=== PATIENT | male | born 1975 | race Hispanic/Latino ===

== ENCOUNTER 2016-11-11 17:52 | Emergency (ER) | payer SELFPAY ==
[2016-11-11 17:59] VITALS: BP 130/86; PULSE 103; RESP 16; O2SAT 98
[2016-11-11 18:36] LABS: BASOPHILS % (AUTO) 0.3 % (0-3); EOSINOPHILS % (AUTO) 1.1 % (0-5); MONOCYTES % (AUTO) 11.1 % (4-12); Mean Corpuscular Hemoglobin 29.7 pg (27.0-35.0); Mean Corpuscular Volume 82.7 fL (81-100); NEUTROPHILS % (AUTO) 55.5 % (40-74); Platelet Count 180 bil/L (150-400)
[2016-11-11 19:17] LABS: TROPONIN T < 0.010 ug/L (0.0-0.011)
--- NOTE | 2016-11-11 19:25 | ED.REPORT ---
HPI-General Illness Date of Service Nov 11, 2016 ED Provider: Frederick Reyes MD Pt is a healthy 41 year old male who presents to the ED with concerns for sudden dizziness that started yesterday. He reports that this started abruptly while he was at work yesterday, and this has continued since then. Pt states that he additionally reports that he has been experiencing fevers and chills. He denies any diarrhea, abdominal pain, dysuria or any sick contacts. He reports increased urinary frequency, but has no other complaints. Nursing Notes Stated Complaint: DIZZY AND BODY PAIN Chief Complaint: General Complaint Nursing Notes Reviewed: Yes ([employer], [employer] not reconciled) Allergies: Coded Allergies: No Known Allergies (Unverified , 11/11/16) Scheduled Azithromycin (Zithromax (Z-Sherwin)) 250 Mg Tablet 250 MG PO DIRECTED Take two tablets by mouth on day 1, then take one tablet daily on days 2 through 5. Metformin ER (Metformin ER) 1,000 Mg Tablet 1,000 MG PO DAILY General Time Seen by MD: 19:23 Chief Complaint Dizziness Hx Obtained From: Patient Arrived By: Walk-in Sudden in Onset?: Yes Onset Occurred: Yesterday Symptom Duration: Since onset Location: : Head Quality: Painful Severity: Current: Mild Severity: Maximum: Mild Similar Sx Previous: Yes Past Medical History Past Medical History Healthy Family History Mother is diabetic Ambulatory Status Independent Review of Systems Full Review of Systems Constitutional: Reports: Chills, Fever, Weakness - generalized, Denies: Malaise Respiratory: Reports: Non-productive cough (mild), Denies: Shortness of breath, Wheezing Cardiovascular: Denies: Chest pain, Syncope GI: Denies: Abdominal pain, Constipation, Diarrhea, Nausea, Vomiting Male: Reports Urinary frequency, Denies Dysuria, Denies Flank pain, Denies Urinary urgency Musculoskeletal: Denies: Back pain, Extremity pain, Neck pain Skin: Denies Diaphoresis Neurologic: Reports: Dizziness, Headache, Denies: Syncope, Weakness Complete sys rev & neg: except as marked. Physical Exam Vital Signs Vital Signs Date Time Temp Pulse Resp B/P Pulse Ox O2 Delivery O2 Flow Rate FiO2 11/11/16 17:59 37.8 103 16 130/86 98 Room Air Initial VS: Reviewed, Vital signs abnormal Head / Eyes: Atraumatic, Normocephalic, PERRL ENT: Mucous membranes moist, Conjunctiva normal, No scleral icterus Neck: Supple, Non-tender, Full range of motion Respiratory: Breath sounds normal, Clear to auscultation, No respiratory distress Cardiovascular: Regular rate & rhythm, Heart sounds normal, Intact distal pulses Abdomen / GI: Soft, Non-tender, No guarding, No rebound, No distention Skin: Warm, Dry, No cyanosis Neurologic: Alert, Oriented, Nonfocal General/Constitutional: Awake, Alert Fatigued Non-toxic Interpretation & Diagnostics Lab Results Interpretation Result Diagram: 11/11/160 11/11/16 1820 Test 11/11/16 18:20 11/11/16 20:03 White Blood Count 6.3th/mm3 (3.8-10.1) Red Blood Count 5.32mil/mm3 (4.40-5.80) Hemoglobin 15.8g/dL (13.8-17.2) Hematocrit 44.0% (41.0-50.0) Mean Corpuscular Volume 82.7fL (81-100) Mean Corpuscular Hemoglobin 29.7pg (27.0-35.0) Mean Corpuscular Hemoglobin Concent 35.9% (32.0-37.0) Red Cell Distribution Width 12.0% (12.3-15.4) Platelet Count 180bil/L (150-400) Neutrophils (%) (Auto) 55.5% (40-74) Lymphocytes (%) (Auto) 31.8% (14-46) Monocytes (%) (Auto) 11.1% (4-12) Eosinophils (%) (Auto) 1.1% (0-5) Basophils (%) (Auto) 0.3% (0-3) Sodium Level 135mEq/L (134-144) Potassium Level 3.8mEq/L (3.5-5.2) Chloride Level 95mEq/L (97-108) Carbon Dioxide Level 23mmol/L (18-29) Blood Urea Nitrogen 11mg/dL (6-20) Creatinine 0.64mg/dL (0.76-1.27) Estimat Glomerular Filtration Rate 148mL/min (>59) Glucose Level 318mg/dL (60-99) Lactic Acid Level 1.3mmol/L (0.4-2.0) Calcium Level 9.6mg/dL (8.5-10.1) Total Bilirubin 0.6mg/dL (0.0-1.2) Aspartate Amino Transf (AST/SGOT) 21U/L (0-50) Alanine Aminotransferase (ALT/SGPT) 23U/L (0-44) Alkaline Phosphatase 105U/L (25-150) Troponin T < 0.010ug/L (0.0-0.011) Pro-B-Type Natriuretic Peptide 8.38pg/mL (0-86) Total Protein 7.7g/dL (6.4-8.4) Albumin 4.3g/dL (3.4-5.0) Hold Sierra Top Tube Received (Received) Hold Blue Top Tube Received (Received) Urine Color Yellow (YELLOW) Urine Appearance Hazy (CLEAR,HAZY) Urine pH 6.0 (5.0-8.0) Urine Specific Greene 1.060 (1.003-1.035) Urine Protein 30mg/dL (NEG,TRACE) Urine Glucose (UA) >2000mg/dL (NEGATIVE) Urine Ketones Tracemg/dL (NEGATIVE) Urine Occult Blood Negative (NEGATIVE) Urine Nitrite Negative (NEGATIVE) Urine Bilirubin Negative (NEGATIVE) Urine Urobilinogen Normalmg/dL (NORMAL) Urine Leukocyte Esterase Negative (NEGATIVE) Urine RBC 0-2/hpf (0-2) Urine WBC 0-5/hpf (0-5) Urine Epithelial Cells Occasional/hpf (NONE-MOD) Urine Crystals None seen (NONE SEEN) Urine Bacteria Few/hpf (NONE-FEW) Urine Hyaline Casts None/lpf (NONE) Urine Granular Casts None seen (NONE SEEN) Urine Waxy Casts None seen (NONE SEEN) Urine Red Blood Cell Casts None seen (NONE SEEN) Urine White Blood Cell Casts None seen (NONE SEEN) Urine Mucus Present (None Seen) Urine Trichomonas None seen (NONE SEEN) Urine Yeast None (NONE SEEN) Urinalysis Comment None Urine Culture Reflexed Not indicated Hold [place] Top Tube Received (Received) Lab Results Interpretation: CBC normal CMP new hyperglycemia Blood cultures pending X-Ray Chest Interpretation Chest Xray Interpretation: IMPRESSION: Focal left midlung opacity suspicious for pneumonia. Dictated by: Brie Lockwood MD, PhD on 11/11/2016 at 19:56 Interpretation / Wet Read by: Interpret - Radiologist Re-Eval/Medical Decision Med Decision/Clinical Course This is a 41-year-old male known known past mental history presents with fever, chills, generalized weakness and mild cough. Worse today, so he came in. He is febrile, is not toxic, his lungs are clear, is not tachypneic or dyspneic or hypoxic. He is not hypertensive. His blood was notable for new onset diabetes with significant hyperglycemia-he has extensive family history. A chest x-ray is positive for pneumonia. He started on ceftriaxone, being discharged on azithromycin. However he is not toxic, he is reasonable For outpatient management. He does not have a PCP, not contacted the on-call provider for next unassigned to facilitate follow-up and establish care given his diabetes. In the interim I written a prescription for metformin to initiate. Routine precautions reviewed. Patient's discharged in stable condition Source of Hx: Old records Time of Eval: 21:29 Re-Evaluation/Progress Note: Pt is rechecked and informed of his diagnosis and the plan to discharge him at this time. He understands and agrees, all questions are addressed. Consultation : Referral / Consult Name: Bhavesh Sullivan DO Call Returned at: 22:01 [employer] Hand: Will see in office Note: Discussed with patient physical outpatient office follow-up. (referred to Dr. Berry) Differential Diagnosis: Positive: Diabetes mellitus, Pneumonia, Negative: Acute coronary syndrome, Drug dependence, Fracture, Neutropenia Counseled Regarding: Diagnosis, Lab results, Need for follow-up, When/why to return to ED Discharge & Departure Primary Impression: Pneumonia Pneumonia type: due to unspecified organism Laterality: left Lung location : lower lobe of lung Qualified Code: J18.1 - Lobar pneumonia, unspecified organism Additional Impression: New onset type 2 diabetes mellitus Disposition: Home Discharge Condition All VS Reviewed: Yes Condition: Stable Additional Instructions: 1. Your x-ray demonstrates that her fever, cough, and weakness are from a pneumonia. He received a dose of IV antibiotics in the department tonight. 2. Starting tomorrow taking anabolic azithromycin as directed. 3. Rest, usually takes several days after starting amoxicillin started feel better. Drink plenty of fluids. Take Tylenol 1 g up to every 6 hours as needed for fever. 4. Additionally her blood work demonstrates that U have mild diabetes. Metformin 1000 mg (extended release) once a day (there is no risk of this medicine causing her blood sugar to be low. You do need to establish with a local doctor-call Dr. Berry's office for an appointment. I have called them to facilitate the follow-up. 5. Return if new or worsening symptoms. Referrals: NOPCP (PCP) Jak Attestation Portions of this note were transcribed by Alesha Gonzalez.. I, Dr. Reyes personally performed the history, physical exam and medical decision-making; I reviewed and confirmed the accuracy of the information in the transcribed note. Signed by:Jak Banks, 11/11/2016 21:33 Frederick Reyes MD Nov 11, 2016 19:25 MAIKEL GONZALEZ Nov 11, 2016 19:42
--- NOTE | 2016-11-11 19:59 | DRSVH ---
PROCEDURE: X-RAY CHEST, TWO VIEWS ([id number]) INDICATIONS: fever TECHNIQUE: 2 views of the chest were acquired. COMPARISON: None. FINDINGS: Surgical changes and devices: None. Lungs and pleura: No pleural effusions or pneumothorax. Focal left suprahilar lung opacity noted adeel picious for pneumonia. Mediastinum: Mediastinal contours are normal. Heart size is normal. Bones and chest wall: No suspicious bony abnormalities. Soft tissues appear unremarkable. IMPRESSION: Focal left midlung opacity suspicious for pneumonia. Dictated by: Brie Lockwood MD, PhD on 11/11/2016 at 19:56 Approved by: Brie Lockwood MD, PhD on 11/11/2016 at 19:57
[2016-11-11] MEDS ORDERED: cefTRIAXone Inj 2,000 MG in Dextrose 5% Minibag Plus 50 ML IV ONE (21:05)
[2016-11-11] MEDS ORDERED: AZIT250T4 PO (21:30)
[2016-11-11] MEDS ORDERED: METF-496 PO (21:30)
[2016-11-11 21:48] LABS: APPEARANCE,URINE HAZY (CLEAR,HAZY); COLOR,URINE YELLOW (YELLOW)
[2016-11-11 21:49] LABS: OCCULT BLOOD,URINE NEGATIVE (NEGATIVE); UROBILINOGEN,URINE NORMAL (NORMAL)
[2016-11-11 22:14] VITALS: BP 136/83; PULSE 92; RESP 18; O2SAT 99
== END 2016-11-11 22:15 | disposition home or self-care (01) ==
LOC: SED 17:52
DX: J18.1 Lobar pneumonia, unspecified organism (principal); E11.9 Type 2 diabetes mellitus without complications; Z79.84 Long term (current) use of oral hypoglycemic drugs
CPT/HCPCS: 36415; 71020; 80053; 81000; 83036; 83605; 83880; 84484; 85025; 87040; 96365; 99285; J0696

== ENCOUNTER 2016-12-07 13:26 | Inpatient (IN) | payer SELFPAY ==
[~2016-12-07] VITALS: Ht 180.3 cm; Wt 82.4 kg
[~2016-12-07 13:26] MED LIST: AZIT250T4 PO; METF-496 PO
[2016-12-07 13:48] VITALS: BP 102/67; PULSE 123; RESP 10; O2SAT 92
[2016-12-07] MEDS ORDERED: Ibuprofen Suspension 20 mg/mL 5 mL Suspension ONE (14:42)
[2016-12-07 15:00] LABS: BASOPHILS % (AUTO) 0.3 % (0-3); EOSINOPHILS % (AUTO) 0.9 % (0-5); MONOCYTES % (AUTO) 9.1 % (4-12); Mean Corpuscular Volume 80.6 fL (81-100); NEUTROPHILS % (AUTO) 69.4 % (40-74); Platelet Count 238 bil/L (150-400)
--- NOTE | 2016-12-07 15:02 | DRSVH ---
PROCEDURE: X-RAY CHEST, TWO VIEWS ([id number]) INDICATIONS: cough, chest pain TECHNIQUE: 2 views of the chest were acquired. COMPARISON: [facility], CR, XR CHEST 2VW, 11/11/2016, 19:46. FINDINGS: Surgical changes and devices: None. Lungs and pleura: Extensive airspace disease throughout the left lung is identified. There is mild a irspace disease along the peripheral aspect of the right lower lobe. Mediastinum: Mediastinal contours are normal. Heart size is normal. Bones and chest wall: No suspicious bony abnormalities. Soft tissues appear unremarkable. IMPRESSION: Bilateral pneumonia (left significantly greater than right). Dictated by: Werner Maxwell M.D. on 12/07/2016 at 13:59 Approved by: Werner Maxwell M.D. on 12/07/2016 at 14:00
--- NOTE | 2016-12-07 15:11 | ED.REPORT ---
HPI-URI / Cough / Cold Date of Service Dec 07, 2016 ED Provider: Doc,Ed MD History of Present Illness: 41yo male with 1 month of persistent cough, intermittantly productive. Seen at [facility], being treated for pneumonia, currently on Doxycycline after no improvement on Z-pack and Augmentin. He had a TB quantferon Gold test yesterday at [facility] which came back today as positive. Additionally, he was diagnosed with DM 1 month ago, currently on Metformin and Insulin. Nursing Notes Stated Complaint: HIGH SUGARS Chief Complaint: General Complaint Nursing Notes Reviewed: Yes Allergies: Coded Allergies: No Known Allergies (Unverified , 12/07/16) Scheduled Azithromycin (Zithromax (Z-Sherwin)) 250 Mg Tablet 250 MG PO DIRECTED Take two tablets by mouth on day 1, then take one tablet daily on days 2 through 5. Metformin ER (Metformin ER) 1,000 Mg Tablet 1,000 MG PO DAILY General Time Seen by MD: 15:10 Chief Complaint Cough, non-productive Hx Obtained From: Patient Arrived By: Walk-in Onset Occurred: More than a week ago... (1 month) Symptom Duration: Since onset Location: : Chest Radiation: Does not radiate Severity: Current: Mild Severity: Maximum: Mild Associated with: Reports: Cough, Fever, Denies: Chills Pertinent Negative: Pt denies other symptoms Context: Immunization Status General: Unknown Recent Healthcare: Recent doctor visit Similar Sx Previous: Yes Past Medical History Past Medical History DM2 Family History Mother is diabetic Smoking History Unknown if Ever Smoker Social History Alcohol Use: Denies alcohol use Ambulatory Status Independent Review of Systems Review of Systems Note: Reports 80 pound weight loss in 2 years prior to DM diagnosis Constitutional: Reports: Fever, Recent wt loss Respiratory: Reports: Non-productive cough, Denies: Hemoptysis, Shortness of breath, Wheezing GI: Denies: Abdominal pain Complete sys rev & neg: except as marked. Physical Exam Physical Exam Notes: Pulse 108 on recheck Initial Vital Signs Vital Signs (First) Date Time Temp Pulse Resp B/P Pulse Ox O2 Delivery O2 Flow Rate FiO2 12/07/16 13:48 36.4 123 10 102/67 92 Room Air Initial VS: Reviewed General/Constitutional: Awake, Alert, Well hydrated, Not toxic appearing ENT: Airway patent, Mucous membranes moist, Pharynx NL Respiratory / Chest: Atraumatic, Breath sounds NL, Breath sounds = bilat, No respiratory distress Neck: Supple, No meningismus, Full range of motion, No adenopathy Cardiovascular: Regular rhythm, Heart sounds NL, No gallop Heart Rate / Rhythm: Positive: Tachycardia Abdomen: Soft, Non-tender Interpretation & Diagnostics Lab Results Interpretation Result Diagram: 12/08/16 0555 12/08/16 0555 Test 12/07/16 14:50 12/07/16 16:45 Hemoglobin A1c 11.1% (4.8-5.6) Troponin T < 0.010ug/L (0.0-0.011) Hold [place] Top Tube Received (Received) X-Ray Chest Interpretation Chest Xray Interpretation: PROCEDURE: X-RAY CHEST, TWO VIEWS ([id number]) INDICATIONS: cough, chest pain TECHNIQUE: 2 views of the chest were acquired. COMPARISON: [facility], , XR CHEST 2VW, 11/11/2016, 19:46. FINDINGS: Surgical changes and devices: None. Lungs and pleura: Extensive airspace disease throughout the left lung is identified. There is mild airspace disease along the peripheral aspect of the right lower lobe. Mediastinum: Mediastinal contours are normal. Heart size is normal. Bones and chest wall: No suspicious bony abnormalities. Soft tissues appear unremarkable. IMPRESSION: Bilateral pneumonia (left significantly greater than right). Dictated by: Werner Maxwell M.D. on 12/07/2016 at 13:59 Approved by: Werner Maxwell M.D. on 12/07/2016 at 14:00 Re-Eval/Medical Decision Med Decision/Clinical Course Med Decision/Clinical Course: Pt. discussed and labs reviewed with Dr. Preston who will assume care and have Pt. admitted for possibleTB and bilateral pneumonia, failing outpatient therapy. Pt. placed in negative pressure room. Broadspectrum IV abx for CAP started after consultation with Madi Mclaughlin Ph. I saw the patient with the PA and agree with the findings and plan as documented above. In brief, 41M originally from [place] w/ recurrent PNA despite multiple regimens of outpatient antibiotics, now w/ a positive Quantiferon gold. Obvious concern for TB vs aspiration PNA or other atypical offending agent. Hemodynamically stable here. Plan initiation of broad spectrum antibiotics, placement in a negative pressure room (initiated immediately upon learning of positive Q gold w/ cough) and admission for further evaluation and management. Counseled Regarding: Diagnosis, Lab results, Need for admission Discharge & Departure Impression: Primary Impression: Pneumonia Pneumonia type: due to unspecified organism Laterality: bilateral Lung location: unspecified part of lung Qualified Code: J18.9 - Pneumonia, unspecified organism Additional Impressions: Positive QuantiFERON-TB Gold test New onset type 2 diabetes mellitus Disposition: ADMITTED TO HOSPITAL Referrals: NOPCP (PCP) EDSupervising Provider for APC: Ernie Preston MD Attending Statement I saw the patient with the PA and agree with the findings and documentation as noted above. Pankaj Dwyer Dec 07, 2016 15:11 Ernie Preston MD Dec 08, 2016 13:26 (AST/SGOT) 30U/L (0-50) Alanine Aminotransferase (ALT/SGPT) 21U/L (0-44) Alkaline Phosphatase 105U/L (25-150) Troponin T < 0.010ug/L (0.0-0.011) Total Protein 7.6g/dL (6.4-8.4) Albumin 3.6g/dL (3.4-5.0) Hold [place] Top Tube Received (Received) X-Ray Chest Interpretation Chest Xray Interpretation: PROCEDURE: X-RAY CHEST, TWO VIEWS ([id number]) INDICATIONS: cough, chest pain TECHNIQUE: 2 views of the chest were acquired. COMPARISON: [facility], , XR CHEST 2VW, 11/11/2016, 19:46. FINDINGS: Surgical changes and devices: None. Lungs and pleura: Extensive airspace disease throughout the left lung is identified. There is mild airspace disease along the peripheral aspect of the right lower lobe. Mediastinum: Mediastinal contours are normal. Heart size is normal. Bones and chest wall: No suspicious bony abnormalities. Soft tissues appear unremarkable. IMPRESSION: Bilateral pneumonia (left significantly greater than right). Dictated by: Werner Maxwell M.D. on 12/07/2016 at 13:59 Approved by: Werner Maxwell M.D. on 12/07/2016 at 14:00 Re-Eval/Medical Decision Med Decision/Clinical Course Med Decision/Clinical Course: Pt. discussed and labs reviewed with Dr. Preston who will assume care and have Pt. admitted for possibleTB and bilateral pneumonia, failing outpatient therapy. Pt. placed in negative pressure room. Broadspectrum IV abx for CAP started after consultation with Madi Mclaughlin Ph. 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
[2016-12-07 15:25] LABS: TROPONIN T < 0.010 ug/L (0.0-0.011)
[2016-12-07 15:32] LABS: Magnesium 1.6 mg/dL (1.6-2.6)
[2016-12-07 15:38] VITALS: BP 108/56; PULSE 105; RESP 20; O2SAT 98
[2016-12-07 16:27] VITALS: BP 115/59; PULSE 102; RESP 28; O2SAT 94
[2016-12-07] MEDS ORDERED: Azithromycin Inj 500 MG in Dextrose 5% w/Vial Mate 250 ML IV ONE ×2 (16:33→19:50)
[2016-12-07] MEDS ORDERED: cefTRIAXone Inj 2,000 MG in Dextrose 5% Minibag Plus 50 ML IV ONE ×2 (16:33→19:50)
[2016-12-07] MEDS ORDERED: Polyethylene Glycol (PEG) 17 Gm Powder PO PRN (17:20)
[2016-12-07] MEDS ORDERED: Alum-Mag Hydrox-Simeth 30 mL Suspension PO PRN (17:20)
[2016-12-07] MEDS ORDERED: Ondansetron 2 mg/mL 2 mL Inj IVPUSH PRN (17:20)
[2016-12-07 17:49] VITALS: BP 100/66; PULSE 102; RESP 18; O2SAT 95
--- NOTE | 2016-12-07 19:26 | PCM.HPMED ---
Subjective Date of Service Dec 07, 2016 Primary Provider: Admitting Physician: Pankaj Erwin MD Primary Care Physician: Alissa Attending Physician: Pankaj Erwin MD Admit Status: From the Emergency Department, Admit to [place] Team Chief Complaint: Nonproductive cough. History of Present Illness: The patient is a 41-year-old male who has been in [facility] for 20 years. 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 Approximately 1 month ago patient became ill and was diagnosed with diabetes and placed on metformin and insulin. He states he used to weigh over 300 pounds and has lost over 100 pounds and is down 195 pounds. In addition to weight loss she has had drenching night sweats where he has to sleep with towels on his back behind his head and on his front. He also has had a cough which is nonproductive. Patient is seen his primary care provider at the [facility] and has been given azithromycin by mouth, Augmentin by mouth and now is on doxycycline by mouth. A QuantiFERON gold blood test was performed on the patient and I came back positive. The patient continues to have a pulmonary infiltrate in the left lung. Patient was sent to [facility] emergency room where he was found to have a chest x-ray consistent with bilateral pneumonia, left greater than right. Laboratory test revealed hyponatremia and hyperglycemia. Therefore given the above subjective and objective findings the patient is being admitted to the hospitalisat service for further evaluation and treatment. Review of Systems: General: Patient has had weight loss of over 100 pounds, fever, drenching night sweats, and cough which is nonproductive. HEENT: Patient has no headache, patient has no diplopia, patient has no changes in vision. Patient has no problems with their ears, nose or throat. Patient has no known dental problems. Patient has no pharyngitis or history of thrush. Neck: Patient has no stiffness in the neck. Patient has no lymphadenopathy. Patient has no other problems with their neck. Pulmonary: Patient has no shortness of breath, however he does have a cough, with no expectoration of sputum. Patient has no pleurisy. Patient has no chest pain. Patient has no history of asthma or COPD. Cardiovascular: Patient has no chest pain. Patient has no history of heart murmur. Patient has no palpitations. Patient has no history of myocardial infarction. Patient has no history of coronary artery disease. Gastrointestinal: Patient has no history of hepatitis A, B or C. Patient has no history of peptic ulcer disease. Patient has no history of gastroesophageal reflux disease. Patient has no history of nausea, vomiting, or diarrhea. Patient has no history of hematemesis, hematochezia, or melena. Patient has no history of colitis. Renal: Patient has no history of kidney disease. No history of kidney stones. Genitourinary: Patient has no history of dysuria, frequency, or incontinence. Patient has no previous history of genitourinary problems. Musculoskeletal: Patient has no history of muscular skeletal problems. Neurologic: Patient has no history of stroke, no history of seizure, no history of TIA. Psychiatric: Patient has no history of psychiatric problems. However, he is admitted abuse of alcohol. He states he drinks approximately a liter and a half of tequila a day and did this up until "he got sick". The remainder of the entire review of systems was reviewed with patient and is as mentioned above otherwise negative. Allergies Coded Allergies: No Known Allergies (Unverified , 11/11/16) Home Medications Metformin 1000 mg by mouth daily Patient has recently had azithromycin and Augmentin. Patient is currently taking doxycycline. PMH Type II diabetes mellitus diagnosed 1 month ago. Unknown respiratory infection Surgical History Denied Family History His father is in his 60s and healthy His mother is in her early 60s and has diabetes mellitus He has one brother who is healthy He has 3 sisters who are healthy Social History Hx Alcohol Use: Yes (The patient admits to drinking 1 and 1/2 L of tequila a day. He states that he works and drives while drinking this much tequila per day. If he drinks up to 2 L of tequila a day he has someone else drive.) Hx Substance Use: No Smoking Status: Unknown if Ever Smoker Living Arrangement: with Family Additional Information The patient is from [place] and immigrated to the [place] approximately 20 years ago. He has spent his time between [place] and [place]. He is settled in [place], for some time the [facility], running a [employer] service. He states that he drinks approximately a liter and a half of tequila a day and drives that much alcohol in his system. He states that if he drinks 2 L a day, he will have someone else drive for him. The patient has a 19-year-old child with a previous relationship and currently lives with his spouse and 10-year-old child. He denies tobacco use for illicit drug use. 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 Patient denies having any contacts with ill or sick people recently, or anyone with tuberculosis in his lifetime. Exam Vital Signs Vital Sign - Last Date Time Temp Pulse Resp B/P Pulse Ox O2 Delivery O2 Flow Rate FiO2 12/07/16 17:49 36.9 102 18 100/66 95 Room Air Exam General: The patient is a pleasant male in no apparent distress lying supine in bed. HEENT: Head is atraumatic and normocephalic. Eyes: Pupils are equally round and reactive to light and accommodation. Extraocular muscles are intact. Sclera are white, anicteric. Subconjunctival mucosa is pink. Ears and nose are unremarkable. Oropharynx: There is no mucosal lesions, there is no thrush, there is no pharyngitis. Neck: Is supple, there are no nodes, or masses or tenderness. Chest: Is significant for rales bibasilar left greater than right rales throughout the left lung field. There are no rhonchi, wheezes or rubs appreciated. Heart: Rate, rhythm is regular. There is no murmur, rub or gallop. Abdomen: Good bowel sounds are present. Abdomen is soft, nontender, no organomegaly or masses were appreciated. Extremities: Are symmetrical and well perfused. There is no edema, there is no cellulitis, no rash. Neurologic: There are no focal neurological deficits. Cranial nerves II through XII are intact. There are no sensory or motor deficits. Psychiatric: Patients mood is calm and he shows no sign of agitation. Genital: Deferred Rectal: Deferred Lab and Diagnostics Result Diagram: 12/07/16 1450 12/07/16 1450 X-Rays, CTs and MRIs PROCEDURE: X-RAY CHEST, TWO VIEWS ([id number]) INDICATIONS: cough, chest pain TECHNIQUE: 2 views of the chest were acquired. COMPARISON: [facility], CR, XR CHEST 2VW, 11/11/2016, 19:46. FINDINGS: Surgical changes and devices: None. Lungs and pleura: Extensive airspace disease throughout the left lung is identified. There is mild airspace disease along the peripheral aspect of the right lower lobe. Mediastinum: Mediastinal contours are normal. Heart size is normal. Bones and chest wall: No suspicious bony abnormalities. Soft tissues appear unremarkable. IMPRESSION: Bilateral pneumonia (left significantly greater than right). Dictated by: Werner Maxwell M.D. on 12/07/2016 at 13:59 Approved by: Werner Maxwell M.D. on 12/07/2016 at 14:00 Assessment & Plan The patient is a 41-year-old male who has been in [facility] for 20 years. 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 Approximately 1 month ago patient became ill and was diagnosed with diabetes and placed on metformin and insulin. He states he used to weigh over 300 pounds and has lost over 100 pounds and is down 195 pounds. In addition to weight loss she has had drenching night sweats where he has to sleep with towels on his back behind his head and on his front. He also has had a cough which is nonproductive. Patient is seen his primary care provider at the [facility] and has been given azithromycin by mouth, Augmentin by mouth and now is on doxycycline by mouth. A QuantiFERON gold blood test was performed on the patient and I came back positive. The patient continues to have a pulmonary infiltrate in the left lung. Patient was sent to [facility] emergency room where he was found to have a chest x-ray consistent with bilateral pneumonia, left greater than right. Laboratory test revealed hyponatremia and hyperglycemia. Therefore given the above subjective and objective findings the patient is being admitted to the hospitalisat service for further evaluation and treatment. # Bilateral pulmonary infiltrates left greater than right - Given that patient has fever, drenching night sweats, weight loss and cough along with history of alcoholism and diabetes mellitus tuberculosis is high on the list of differential diagnoses - A recently positive serological Quantiferron gold test further N Kvng is a suspicion for active pulmonary tuberculosis - Suspect recent treatment with azithromycin, Augmentin and currently doxycycline has given partial treatment to the above potential diagnosis. - Other possible diagnoses include resistant bacterial pneumonia such as MRSA, viral pneumonia, fungal pneumonia or aspiration pneumonia which is common in alcoholism. - We will check CT scan of the chest looking for cavitary disease - Check sputum for AFB 3 - Check sputum culture- check blood cultures - Check respiratory viral PCR - Check nasopharyngeal screen for MRSA - If sputum samples are not available would strongly consider bronchoscopy sooner rather than later. - Patient needs to be in negative pressure isolation until tuberculosis has been ruled out - Infectious disease consultation with Dr. Holland has been obtained and patient was seen together with Dr. Holland. # Newly diagnosed type II diabetes mellitus - Check hemoglobin A1c - Continue metformin - Accu-Cheks every before meals and at bedtime - Sliding-scale insulin coverage - Diabetic teaching # Alcoholism - Start CIWA protocol - Social service consult for chemical dependency - Start thiamine and multivitamin and folic acid - Education on alcoholism. Disposition: The patient will be here more than 2 midnights for evaluation and treatment of the above problems, therefore the patient was admitted as an inpatient. - Pain Evaluation: Adequate Pain Control GI Prophylaxis: Proton Pump Inhibitor VTE Prophylaxis: Sub-Q Enoxaparin Resuscitation Status: CPR: Attempt Resuscitation Pankaj Erwin MD Dec 07, 2016 19:26
--- NOTE | 2016-12-07 19:27 | NUR ---
Admit patient admitted to room 1031 from ER for pneumonia/ + TB quantferon gold test. Patient stated 1 month of coughing and weight loss. Pt appears calm no Resp distress but lungs did have some crackles noted at bases L>R. Patient oriented to room and surroundings and placed on air borne precautions.
--- NOTE | 2016-12-07 19:34 | CONS ---
[address] [address] CONSULTATION REPORT PATIENT: RXOY CORDOBA : 1975 MR#: [id number] ADMIT: 12/07/2016 JOB ID: [id number] DATE OF SERVICE: 12/07/2016 INFECTIOUS DISEASE CONSULTATION: I thank Dr. Pankaj Erwin for this consult. REASON FOR CONSULTATION: Possible tuberculosis with extensive left-sided pneumonia in a gentleman from [place]. HISTORY OF THE PRESENT ILLNESS: The patient is a 41-year-old gentleman who hails from [facility]. 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 He reports that he stays very busy in his [employer] business and is usually in good health, though he was apparently recently diagnosed with diabetes. One of the reasons he came to attention for the diabetes was from weight loss, which led to the studies which disclosed the diabetes for which he is now treated with metformin. At about the same time he developed the diabetes related weight loss, he also noticed that he had developed a cough. This was minimally productive but was associated with some degree of fever, as well as some chills and drenching night sweats. Because of this cough the patient underwent a chest x-ray and was diagnosed with pneumonia. He was prescribed azithromycin but failed to improve much and was then switched to Augmentin, and most recently switched to doxycycline, which he remains on up until today. The patient did have a QuantiFERON Gold done as part of his workup at [facility] for a new diabetic, as well as for his cough. It was found out today that his QuantiFERON Gold was positive and he was recommended to come here for evaluation. The patient tells us that over the last couple days, while he has been taking doxycycline, his night sweats have actually started to subside and his cough has turned from grossly purulent to relatively dry, though it continues. He denies any associated headache, significant sore throat, or pleuritic chest pain. He has had no GI symptoms. The patient notes that he weighed up to 300 pounds a year or two ago and has been gradually losing weight, though just within the past month or so he has lost 20 or more pounds. Additional bits of data include the fact that the patient tells us he drinks 1.5 L of tequila a day on an ongoing basis. He reports he has no side effects from this extraordinary dose of alcohol and was forced to give it up in recent weeks because of his night sweats, cough, and malaise. PAST MEDICAL HISTORY: 1. Diabetes mellitus, recently diagnosed. 2. Alcoholism. 3. A history of morbid obesity which has resolved over the past year. SOCIAL HISTORY: The patient is a non cigarette smoker. Does not inject drugs. He drinks tequila in prodigious quantities. The patient is originally from [facility]. He did go back there for an extended period a few years ago and he has, within the last couple of years, driven down to the [facility]. FAMILY HISTORY: Completely negative for tuberculosis. There is a strong family history for diabetes in multiple first-degree relatives. REVIEW OF SYSTEMS: Was done. The patient denies headache or visual change. No sore throat. He has a cough which was productive but is now nonproductive. He has had fevers, chills, and especially drenching night sweats which sound as if they are getting better. He is not having pleuritic chest pain. No abdominal pain. No nausea, vomiting, diarrhea, or dysuria. No swelling of the joints. No focal motor weakness. The remainder of the review of systems is negative. PHYSICAL EXAMINATION: Reveals an afebrile gentleman, temperature 36.9, pulse 102, respiratory rate 18, blood pressure 100/66, saturating 95% on room air. He is in no acute distress at this point; he is smiling and conversing pleasantly. On examination of the head, no temporal wasting. No sinus tenderness. No pharyngitis or thrush. The patient's neck is supple, without adenopathy. His lungs are notable for coarse rales present in the left base primarily, but a bit on the right as well. There is no abnormality seen in his spine. He has no flank tenderness. His abdomen is soft and nontender, without organomegaly. There is no ascites, no suprapubic fullness. No Lee catheter is present. The extremities are notable for no synovitis, no cellulitis, and no significant peripheral edema. Neurologically, he is strong throughout. No sensory deficit. LABORATORIES: Include white count of 7000 with normal diff, platelets 238. Creatinine 0.74. LFTs completely normal. Procalcitonin pending. Albumin 3.6. IMAGING: Was carefully reviewed on the view screen. It shows bilateral pneumonia, left much worse than the right. There is extensive disease through most of the lower left lung and a bit at the right base. No cavities are seen. IMPRESSION: This is a challenging case of a younger man from [place] who was recently diagnosed with diabetes. He has had an extraordinary amount of weight loss over the last year, and even over the past month has lost 20 pounds, but some of this may be due to a recent diagnosis of diabetes mellitus. The patient has numerous risk factors for TB including alcoholism, being foreign born in a country with a high incidence of TB, and a recent diagnosis of diabetes mellitus. His chest x-ray could certainly be compatible with TB but it would perhaps be more suggestive of a primary tuberculosis pattern than reactivation. The other main respiratory illness he is at high risk for would be aspiration pneumonia, which I think is perhaps somewhat more likely than TB in this situation. The patient tells us he drinks 1.5 L of tequila a day but has a strong sense of limits and will not ever consume more than 2 L per day. If true, this sort of alcohol consumption is what is classically seen with aspiration pneumonia. His chest x-ray does not fit a typical pattern of aspiration, but it is hard to know in what position he might be while he is inebriated. RECOMMENDATIONS: 1. Given the patient's apparent lack of toxicity, and the fact he has been receiving antibiotics now for most of the past couple of weeks, I do not think we need to necessarily start any antibiotics tonight. 2. Note that the patient has a positive QuantiFERON Gold already and it need not be repeated. 3. Human immunodeficiency virus and hepatitis C should be ordered, and we have mentioned this to the brain surgeon, who will be drawing even as we were examining the patient. 4. Sputum for AFB stains, cultures, and nucleic acid amplification has been ordered. 5. The patient reports he is no longer producing anything in the way of sputum. If this continues it will be represent a significant impediment to try and rule in or rule out TB we may be forced to ask our pulmonary colleagues to do bronchoscopy. First, we will go ahead though and try and get some sputums, and we have asked the patient to cooperate in so far as he can to provide some good samples. Thank you very much. LUIS
[2016-12-07 19:46] VITALS: BP 98/63; PULSE 106; RESP 16; O2SAT 95
[2016-12-07] MEDS ORDERED: Dextrose 10% 250 ML IV PRN (20:45)
[2016-12-07] MEDS ORDERED: Glucose 40% Oral Gel 15 Gm Tube PO PRN (20:55)
[2016-12-07] MEDS: Multivit-Miner-Folic Acid-Iron Tablet PO SCH (23:07)
[2016-12-07 23:38] LABS: APPEARANCE,URINE CLEAR (CLEAR,HAZY); COLOR,URINE YELLOW (YELLOW); OCCULT BLOOD,URINE NEGATIVE (NEGATIVE); UROBILINOGEN,URINE NORMAL (NORMAL)
[2016-12-08] VITALS (7 sets, daily range): BP systolic 99–115; BP diastolic 59–75; PULSE 52–117; RESP 16–24; O2SAT 92–95
[2016-12-08] MEDS: Sodium Chloride LOK Flush 10 mL Syringe IVFLUSH SCH ×3 (02:29→15:46)
[2016-12-08] MEDS: Insulin Human REGular 300 Unit/3 mL Inj SUBQ SCH ×4 (02:47→17:45)
--- NOTE | 2016-12-08 03:33 | NUR ---
Respiratory/ Update Pt. continues to have intermittent cough. No sputum production yet. Pt. reported sweating around midnight. Minimal sweat on forehead noted. Pt. has been afebrile so far this shift. Pt's CIWA score has been no higher than 1 so far this shift. Will continue to monitor.
[2016-12-08 06:21] LABS: BASOPHILS % (AUTO) 0.2 % (0-3); EOSINOPHILS % (AUTO) 0.5 % (0-5); MONOCYTES % (AUTO) 7.8 % (4-12); Mean Corpuscular Hemoglobin 28.4 pg (27.0-35.0); Mean Corpuscular Volume 80.8 fL (81-100); Platelet Count 232 bil/L (150-400)
[2016-12-08 06:40] LABS: INR 1.12 ratio
[2016-12-08 06:48] LABS: Magnesium 1.6 mg/dL (1.6-2.6)
[2016-12-08 07:02] LABS: ERYTHROCYTE SEDIMENTATION RATE 46 mm/hr (0-15)
--- NOTE | 2016-12-08 08:02 | DRSVH ---
PROCEDURE: CT CHEST WITH CONTRAST ([id number]) INDICATIONS: Pneumon/possible TB/possible cavitary disease TECHNIQUE: After the administration of intravenous contrast, 5 mm thick sections acquired from the pulmonary api perri to the posterior costophrenic angles. 7 mm thick coronal and sagittal MIP reformats were acquire d. For radiation dose reduction, the following was used: automated exposure control, adjustment of mA and/or kV according to patient size. COMPARISON: None. FINDINGS: Image quality: Excellent. Lungs and pleura: Consolidation and volume loss involving nearly the entire left upper lobe. Focus of cavitation in the left upper lobe measuring 2.2 x 1.3 CM (se 3 im 15). Consolidation and nodular pul monary opacities in the left lower lobe. Minimal similar opacities in the peripheral right lung great est in the upper lobe. Mediastinum: Heart size is normal. No pericardial effusion. No mediastinal or hilar adenopathy by size criteria. Thoracic aorta and central pulmonary arteries are normal in size. Esophagus is chris l in caliber. No hiatal hernia. Bones and chest wall: No suspicious bony lesions. No vertebral body compression fractures. No axil gee or supraclavicular adenopathy by size criteria. Thyroid gland is present.. Abdomen: Visualized upper abdominal solid organs appear normal. Upper abdominal bowel loops are nor mal in caliber. IMPRESSION: Dense left upper lobe consolidation with small focus of cavitation. Lesser consolidation and pulmonary opacities in the left lower lobe and peripheral right lung. Findings are most consisten t with infection. Dictated by: Dayo Ca M.D. on 12/08/2016 at 7:57 Approved by: Dayo Ca M.D. on 12/08/2016 at 8:00
[2016-12-08] MEDS: Pantoprazole 40 mg ER24 Tablet PO SCH (08:16)
[2016-12-08] MEDS: Multivit-Miner-Folic Acid-Iron Tablet PO SCH (09:18)
[2016-12-08] MEDS ORDERED: Magnesium Sulf 4 Gm/100 mL H2O 4 GM in IV Premix 1 EACH IV ONE (09:30)
--- NOTE | 2016-12-08 15:31 | NUR ---
NUTRITION ASSESSMENT: ASSESS: 41 YO male admitted for bilateral pneumonia and possible TB. Per notes, pt reports that he was diagnosed with diabetes 1 month ago and started on metformin and insulin. Diabetic education ordered, and will be attempted when pt is no longer on TB isolation. Pt reports losing over 100 lbs (unknown timeframe) but per EMR review, pt had a stated wt on November 11 of 100 kg. Pt wt today is 84.3 kg. Pt also reports drenching night sweats. PMHx: DM type 2, etoh abuse. LABS: Reviewed. Cr 0.59, Glu 174, A1c 11.1, Alb 3.5. MEDS: Reviewed. GI: BM x 1 today. CURRENT WT: 84.3 kg (bed scale) wt November 11, 2016: 100 kg (Stated). Per notes pt states he used to weigh 300 lbs which would mean that pt has lost 38.28% body weight, unknown timeframe. DIET: Diabetic. PO 5% x 1 meal reported. EST. NEEDS: 0014-1691 kcals (30-35 kcals/kg BW), 100-125 g protein (1.2-1.5 g/kg BW) NUTRITION DIAGNOSIS: 1.) Inadequate oral intake related to decreased ability to consume sufficient energy as evidenced by current PO intake of 5% of meals and severe wt loss reported. 2.) Altered nutrition related lab values related to new diagnosis of diabetes as evidenced by A1C of 11.1. NUTRITION INTERVENTION: 1.) Will add glucerna to all trays to promote adequate po intake and encourage wt maintenance. 2.) RD to provide diabetic education once TB precaution have been discontinued. MONITOR / EVAL: PO intake, diabetic education, labs, nutritional status. Follow per high nutritional risk guidelines.
--- NOTE | 2016-12-08 16:10 | NUR ---
Sputum induction completed. Sputum collected and sent to the lab at 1600.
--- NOTE | 2016-12-08 17:18 | PROG NOTE ---
[address] [address] PROGRESS NOTE PATIENT: ROXY CORDOBA : 1975 MR#: [id number] ADMIT: 12/07/2016 JOB ID: [id number] DATE: 12/08/2016 REASON FOR FOLLOWUP: Extensive pulmonary infiltrate of unknown etiology. INTERVAL HISTORY: Overnight, the patient has developed some tachycardia and low-grade fevers. His sputum continues to be very dry, but today there was a successful attempt by RT to get some induced sputum to start his TB workup. The patient reports that he is feeling reasonably well and he denies subjective fevers, chills, or sweats. He notes he continues to have a cough which is sometimes quite severe and minimal shortness of breath. No nausea, vomiting, diarrhea. PHYSICAL EXAMINATION: Reveals a gentleman who is a bit flushed and does not look as composed as he did last night. Temperature 38.2, pulse 104, respiratory rate 24, blood pressure 110/71, saturating 93% on room air. He is still alert and oriented x3 but appears more nervous perhaps. Eyes: With some conjunctival hyperemia. Oral cavity negative. Lungs with truly extensive left-sided pulmonary infiltrate. I reviewed the CT scan personally today and it is quite extraordinary in terms of the degree of infiltration seen. There is a minimal amount of infiltrate in the base of the right lung as well, but the left lung is very impressive. The patient's left lung has diffuse rales and rhonchi. The cardiac tones without murmur. Abdomen benign. LABORATORIES: Include white count stable at 6000. Basically normal diff. His sed rate is 46. Coags normal. Procalcitonin continues to be less than 0.25. Hep C and HIV negative. MRSA screen negative. Blood cultures negative. Respiratory viral PCR panel negative. The chest CT, which I reviewed, was read by the radiologist as dense left upper lobe consolidation with a small focus of cavitation. IMPRESSION: This case was discussed in detail last night, as well as today with Dr. Erwin, as well as Dr. Blunt of the Pulmonary Service. Initial appearance of this suggested to me that it was either aspiration pneumonia or TB. Aspiration pneumonia was a risk because of the patient's extraordinary drinking history and TB because of his history of positive QuantiFERON Gold, diabetes, and country of initial resonance, which was [place]. We are expanding the differential a bit today and I agree with Dr. Blunt that we should also consider the possibly of cryptococcal pneumonia. RECOMMENDATIONS: 1. We are continuing to work to get the sputum AFB samples. 2. We await the maturation of the blood cultures. 3. Will order Pneumococcal urine antigen as well as Legionella urine antigen. 4. Cryptococcal antigen will be ordered. 5. Will go ahead and start the patient on Unasyn and I have done that. 6. If there are no positive results by Sunday or so, we will ask the pulmonary service to proceed with bronchoscopy.
[2016-12-08] MEDS: Ampicillin-Sulbactam Inj 3,000 MG in 0.9% Sodium Chloride 100 ML IV SCH ×2 (17:32→22:39)
--- NOTE | 2016-12-08 18:11 | NUR ---
Fever/HR Low grade fever this shift, then spike to 102.4. Dr. Erwin and Dr. Holland notified. Order and admin IV Unasyn. HR has been running tachy low 100's to mid 100's. CIWA q4H, 2, 1, 3.
--- NOTE | 2016-12-08 19:54 | CONS ---
[address] [address] CONSULTATION REPORT PATIENT: ROXY CORDOBA : 1975 MR#: [id number] ADMIT: 12/07/2016 JOB ID: [id number] DATE OF SERVICE: 12/08/2016 PULMONARY CONSULTATION NOTE: The patient is a 41-year-old man seen in consultation at the request of Dr. Erwin for cavitary pneumonia. HISTORY OF PRESENT ILLNESS: The patient is a 41-year-old man originally from [place] who has been in the [facility] for about 20 years. He has a history of heavy alcohol use, drinking as much as 1-2 liters of tequila in a day at times. He presented to the emergency department with worsening respiratory symptoms. Approximately one month ago he began having symptoms of fever, chills, sweats, with cough occasionally productive of a small amount of sputum. He has also had some dyspnea with this. Denies any hemoptysis. Denies large amounts of sputum. He was diagnosed with diabetes approximately a month ago, after having lost over 80 pounds of weight in the months prior. In the last month he has lost about 10-20 pounds he thinks in addition. He has had a chest x-ray done as an outpatient which showed a patchy infiltrate in the left upper lobe on November 11 and has received three courses of antibiotics including azithromycin, Augmentin, and doxycycline most recently, which he says he has taken faithfully. Despite this, symptoms persisted and continued to get worse, and he was seen in the ED. Chest x-ray showed severe worsening of left-sided infiltrate which now involves almost the entire left lung field with some patchy involvement on the right as well. He was febrile in the ER at 38.2, and admitted. He was seen by ID last night and I was asked to see him today because of his inability to produce any sputum. He is currently in airborne isolation for tuberculosis. PAST MEDICAL HISTORY: 1. Type 2 diabetes diagnosed 2016, currently on metformin and insulin. 2. Heavy alcohol use. 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 He drinks 1-2 L of tequila most days. Born in [place] but moved to the [place] 20 years ago. No recent travel over the last six months but he has been to [facility] approximately a year ago. FAMILY HISTORY: No history of TB in the immediate family members, including parents, siblings, and children. REVIEW OF SYSTEMS: A 10-point review of systems is as detailed above in HPI and otherwise negative. PHYSICAL EXAMINATION: Vital signs reviewed. T-max 38.2, pulse 104, respirations 24, BP 110/71, sats 93% to 95% on room air. General: Young man lying in bed, breathing comfortably at rest, in no distress. Neck: No cervical lymphadenopathy. HEENT: Oral mucosa is moist. No ulcers or thrush. Chest: Coarse rhonchi heard all over the left greater than right lung heller. Heart: Regular rate, rhythm. No murmurs. Abdomen: Soft, nontender. No organomegaly. Extremities: No cyanosis, clubbing. Skin: No rashes. LABORATORIES: Reviewed. WBC 6, hemoglobin 13.5, platelets 232. INR normal. Chemistry also reviewed and within normal limits. Procalcitonin is negative x2 at 0.17 and then 0.14. Urinalysis is negative. Urine tox screen negative. Serologies for hepatitis C and HIV are negative. Cultures: Respiratory viral PCR panel is negative. Blood cultures are negative. MRSA nasal swab is negative. Chest x-ray from November 11, 2016, shows a patchy suprahilar infiltrate in the left upper lobe. Chest x-ray December 07, 2016 shows dense left upper lobe infiltrate with additional patchy infiltrates in the lower lobe and in the right upper lobe. CT of the chest was reviewed in detail and shows patches of tree-in-bud in the apical posterior left upper lobe, right upper lobe, as well as left lower lobe, but most notable is a very dense almost liver-like consolidation with air bronchograms in the anterior left upper lobe with area of cavitation/necrotizing pneumonia in the middle. This is a small cavity, approximately 1-2 cm at the most. ASSESSMENT: 1. Necrotizing/cavitary pneumonia of the left upper lobe. 2. Sepsis. 3. Alcohol abuse. RECOMMENDATIONS: This 41-year-old man with history of heavy alcohol use, originally from [place], is admitted with necrotizing left upper lobe pneumonia that has been refractory to outpatient antibiotic therapy with doxycycline, azithromycin, and Augmentin, in which he insists he has been compliant with. His procalcitonin is 0.17 at the highest. He is not able to produce much sputum so I asked Respiratory Care to attempt an induced sputum using hypertonic saline and this sample was submitted for AFB and other cultures including TB PCR which was already ordered by Dr. Holland. The patient is going to remain in TB isolation until we rule out TB at least with one negative TB PCR. With regards to the etiology of this process, certainly anaerobic infection given his history of alcohol abuse due to potential aspiration is a possibility. However, I would expect that to have shown some response to the azithromycin/doxy/Augmentin regimen. Also the procalcitonin being negative goes against a bacterial infection. TB is also on the differential, but looking at his x-ray, which has dramatically worsened from November 11 to December 07, suggests this is less likely to be TB because of the rapidity of progression. QuantiFERON positive in a patient originally from [place] is not surprising at all since perhaps 50% of the population there would have latent TB. This by itself does not really make TB that much more likely in this patient. 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 For this reason I spoke with Dr. Holland, who agreed, and started him on fluconazole daily to cover this possibility. We also have a serum cryptococcal antigen, Coccidioides antibodies, Blastomyces histoplasma antigen, and Fungitell pending. I had hoped to do a bronchoscopy this afternoon, but by the time I was consulted on the patient he had already eaten lunch and he needs to be n.p.o. for 6-8 hours prior to bronchoscopy. I am going to make him n.p.o. tonight at midnight, which would allow Dr. Kim to evaluate him for possible bronchoscopy tomorrow morning. I am going to defer to Dr. Kim regarding this, depending on how good our sputum sample for AFB is. Adding fluconazole would not really change our yield for fungal infections per Dr. Holland. He is also getting IV Unasyn per ID. Dr. Kim is taking over the service tomorrow. All of the above was discussed with the patient at length and imaging reviewed with him as well.
--- NOTE | 2016-12-09 01:28 | PCM.PNMED ---
Subjective Date of Service Dec 09, 2016 Subjective Patient has no new complaints except for slight fever. Patient states that he has stopped alcohol before and the past for long periods of time without any withdrawal symptoms. He has no withdrawal symptoms at current time. Exam Vital Signs Vital Sign - Last Date Time Temp Pulse Resp B/P Pulse Ox O2 Delivery O2 Flow Rate FiO2 12/08/16 20:34 38.0 114 18 115/75 92 Room Air Intake and Output 12/08/16 12/08/16 12/09/16 Cumulative From/Thru 15:00 23:00 07:00 12/07/16 13:48 - 12/08/16 18:16 Intake Total 911 ml 2011 ml Output Total 800 ml 2360 ml Balance 111 ml -349 ml Intake Oral 800 ml 1600 ml IV Total 111 ml 411 ml Output Urine Total 800 ml 2360 ml # Voids 1 # Bowel Movements 1 Exam General: The patient is a pleasant male in no apparent distress lying supine in bed. He exhibits no signs of withdrawal at present time. HEENT: Head is atraumatic and normocephalic. Eyes: Pupils are equally round and reactive to light and accommodation. Extraocular muscles are intact. Sclera are white, anicteric. Subconjunctival mucosa is pink. Ears and nose are unremarkable. Oropharynx: There is no mucosal lesions, there is no thrush, there is no pharyngitis. Neck: Is supple, there are no nodes, or masses or tenderness. Chest: Is significant for rales bibasilar left greater than right rales throughout the left lung field. There are no rhonchi, wheezes or rubs appreciated. Heart: Rate, rhythm is regular. There is no murmur, rub or gallop. Abdomen: Good bowel sounds are present. Abdomen is soft, nontender, no organomegaly or masses were appreciated. Extremities: Are symmetrical and well perfused. There is no edema, there is no cellulitis, no rash. Neurologic: There are no focal neurological deficits. Cranial nerves II through XII are intact. There are no sensory or motor deficits. Psychiatric: Patients mood is calm and he shows no sign of agitation. Genital: Deferred Rectal: Deferred Lab and Diagnostics Result Diagram: 12/08/1655 12/08/16 0555 X-Rays, CTs and MRIs PROCEDURE: X-RAY CHEST, TWO VIEWS ([id number]) INDICATIONS: cough, chest pain TECHNIQUE: 2 views of the chest were acquired. COMPARISON: [facility], CR, XR CHEST 2VW, 11/11/2016, 19:46. FINDINGS: Surgical changes and devices: None. Lungs and pleura: Extensive airspace disease throughout the left lung is identified. There is mild airspace disease along the peripheral aspect of the right lower lobe. Mediastinum: Mediastinal contours are normal. Heart size is normal. Bones and chest wall: No suspicious bony abnormalities. Soft tissues appear unremarkable. IMPRESSION: Bilateral pneumonia (left significantly greater than right). Dictated by: Werner Maxwell M.D. on 12/07/2016 at 13:59 Approved by: Werner Maxwell M.D. on 12/07/2016 at 14:00 PROCEDURE: CT CHEST WITH CONTRAST ([id number]) INDICATIONS: Pneumon/possible TB/possible cavitary disease TECHNIQUE: After the administration of intravenous contrast, 5 mm thick sections acquired from the pulmonary apices to the posterior costophrenic angles. 7 mm thick coronal and sagittal MIP reformats were acquired. For radiation dose reduction , the following was used: automated exposure control, adjustment of mA and/or kV according to patient size. COMPARISON: None. FINDINGS: Image quality: Excellent. Lungs and pleura: Consolidation and volume loss involving nearly the entire left upper lobe. Focus of cavitation in the left upper lobe measuring 2.2 x 1.3 CM (se 3 im 15). Consolidation and nodular pulmonary opacities in the left lower lobe. Minimal similar opacities in the peripheral right lung greatest in the upper lobe. Mediastinum: Heart size is normal. No pericardial effusion. No mediastinal or hilar adenopathy by size criteria. Thoracic aorta and central pulmonary arteries are normal in size. Esophagus is normal in caliber. No hiatal hernia. Bones and chest wall: No suspicious bony lesions. No vertebral body compression fractures. No axillary or supraclavicular adenopathy by size criteria. Thyroid gland is present.. Abdomen: Visualized upper abdominal solid organs appear normal. Upper abdominal bowel loops are normal in caliber. IMPRESSION: Dense left upper lobe consolidation with small focus of cavitation. Lesser consolidation and pulmonary opacities in the left lower lobe and peripheral right lung. Findings are most consistent with infection. Dictated by: Dayo Ca M.D. on 12/08/2016 at 7:57 Approved by: Dayo Ca M.D. on 12/08/2016 at 8:00 Assessment & Plan The patient is a 41-year-old male who has been in [facility] for 20 years. 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 Approximately 1 month ago patient became ill and was diagnosed with diabetes and placed on metformin and insulin. He states he used to weigh over 300 pounds and has lost over 100 pounds and is down 195 pounds. In addition to weight loss she has had drenching night sweats where he has to sleep with towels on his back behind his head and on his front. He also has had a cough which is nonproductive. Patient is seen his primary care provider at the [facility] and has been given azithromycin by mouth, Augmentin by mouth and now is on doxycycline by mouth. A QuantiFERON gold blood test was performed on the patient and I came back positive. The patient continues to have a pulmonary infiltrate in the left lung. Patient was sent to [facility] emergency room where he was found to have a chest x-ray consistent with bilateral pneumonia, left greater than right. Laboratory test revealed hyponatremia and hyperglycemia. Therefore given the above subjective and objective findings the patient is being admitted to the hospitalisat service for further evaluation and treatment. # Bilateral pulmonary infiltrates left greater than right - Given that patient has fever, drenching night sweats, weight loss and cough along with history of alcoholism and diabetes mellitus tuberculosis is high on the list of differential diagnoses - A recently positive serological Quantiferron gold test further N Kvng is a suspicion for active pulmonary tuberculosis - Suspect recent treatment with azithromycin, Augmentin and currently doxycycline has given partial treatment to the above potential diagnosis. - Other possible diagnoses include resistant bacterial pneumonia such as MRSA, viral pneumonia, fungal pneumonia or aspiration pneumonia which is common in alcoholism. - We have checked CT scan of the chest looking for cavitary disease and the results are as follows: Dense left upper lobe consolidation with small focus of cavitation. Lesser consolidation and pulmonary opacities in the left lower lobe and peripheral right lung. Findings are most consistent with infection. - We have ordered to Check sputums for AFB 3, however patient is unable to expectorate anything other than saliva. Patient will need bronchoscopy. Therefore I have consulted the pulmonary service and discussed with Dr. Blunt. Appreciate her time and expertise. - Check sputum culture- check blood cultures - Check respiratory viral PCR - Check nasopharyngeal screen for MRSA - Patient needs to be in negative pressure isolation until tuberculosis has been ruled out - Infectious disease consultation with Dr. Holland has been obtained and patient was seen together with Dr. Holland. Appreciate Dr. Holland this time and expertise. # Newly diagnosed type II diabetes mellitus - Check hemoglobin A1c - Continue metformin - Accu-Cheks every before meals and at bedtime - Sliding-scale insulin coverage - Diabetic teaching # Alcoholism - Start CIWA protocol - Social service consult for chemical dependency - Start thiamine and multivitamin and folic acid - Education on alcoholism. Disposition: The patient will be here likely another 48-72 hours for evaluation and treatment of the above conditions. Dr. Desire Delatorre will follow in a.m. - Pain Evaluation: Adequate Pain Control GI Prophylaxis: Proton Pump Inhibitor VTE Prophylaxis: Sub-Q Enoxaparin VTE Mechanical Devices: Intermittant Pneumatic CD Resuscitation Status: CPR: Attempt Resuscitation Pankaj Erwin MD Dec 09, 2016 01:28
[2016-12-09] MEDS: Sodium Chloride LOK Flush 10 mL Syringe IVFLUSH SCH ×4 (03:58→23:29)
[2016-12-09] MEDS: Insulin Human REGular 300 Unit/3 mL Inj SUBQ SCH ×3 (04:00→11:59)
--- NOTE | 2016-12-09 04:00 | NUR ---
Fever Fever has gone down since day shift, however pt. is still febrile. Cool washcloth placed on forehead, as pt. is also experiencing night sweats. Pt. reported night sweats stopping around 0330 during hourly rounding. Will continue to monitor.
[2016-12-09] MEDS: Ampicillin-Sulbactam Inj 3,000 MG in 0.9% Sodium Chloride 100 ML IV SCH ×4 (04:46→23:26)
[2016-12-09 05:59] VITALS: BP 108/67; PULSE 103; RESP 18; O2SAT 92
--- NOTE | 2016-12-09 05:59 | NUR ---
Cough/ CIWA Pt. continues to have intermittent cough with no sputum production. Pt. made aware of need to be NPO after midnight for bronchoscopy today. Pt's CIWA has been hovering around 1 so far. Will continue to monitor.
[2016-12-09 07:10] LABS: Cryptococcal Ag Negative (Negative)
[2016-12-09] MEDS: Pantoprazole 40 mg ER24 Tablet PO SCH ×2 (07:30→09:07)
[2016-12-09] MEDS: Multivit-Miner-Folic Acid-Iron Tablet PO SCH ×2 (07:50→09:07)
[2016-12-09 08:44] VITALS: PULSE 98; O2SAT 93
--- NOTE | 2016-12-09 13:14 | PROG NOTE ---
[address] [address] PROGRESS NOTE PATIENT: ROXY CORDOBA : 1975 MR#: [id number] ADMIT: 12/07/2016 JOB ID: [id number] DATE: 12/09/2016 REASON FOR FOLLOWUP: Extensive left-sided pneumonia. INTERVAL HISTORY: Overnight, the patient reports he is actually feeling perhaps a bit better. He states he is still having some fever though and some minimal chills. He continues to have a dry cough without pleuritic chest pain, and he does not feel short of breath. No nausea, vomiting, or diarrhea. PHYSICAL EXAMINATION: Reveals a gentleman who is currently quite comfortable and actually looks better than yesterday overall. Temp 36.2, pulse 98, respiratory rate 18, blood pressure 108/67, saturating well on room air. His temperature was 38.7 at 6 a.m. this morning, however. His mental status is completely clear. No evidence for alcohol withdrawal. Oral cavity without thrush. Lungs with left-sided rales but improved over yesterday. Cardiac tones without murmur. Abdomen benign. LABORATORIES: Include yesterday, white count 6000. Yesterday creatinine 0.59. The only new information is we have a negative crypto antigen, negative urine Legionella antigen, negative urine pneumococcal antigen. We also have now a negative HIV and hepatitis C. AFB smears x2 with nucleic acid implication have been confirmed through micro lab but are headed to [facility]. Hopefully will have results by Sunday afternoon. MRSA screen negative. Respiratory viral PCR negative. Chest CT showed the dense left-sided infiltrates. IMPRESSION: This is an otherwise relatively young healthy man with a history of pretty impressive alcohol abuse who presents with an extensive left-sided pneumonia. The differential diagnosis includes TB as we know that he is QuantiFERON Gold as well as aspiration pneumonia and a variety of less likely fungal and other processes. At this point, I still suspect this will turning sander tender to be some form of aspiration. RECOMMENDATIONS: 1. Will continue with Unasyn. 2. We await the additional cultures and serologies that are pending.
[2016-12-09 13:25] VITALS: BP 94/63; PULSE 89; RESP 18; O2SAT 95
[2016-12-09] MEDS ORDERED: Glucose 40% Oral Gel 15 Gm Tube PO PRN (14:20)
[2016-12-09] MEDS ORDERED: Dextrose 10% 250 ML IV PRN (14:20)
--- NOTE | 2016-12-09 16:10 | NUR ---
Sputum / Elevated temperature Pt was able to produce a sputum sample this a.m.; specimen sent to lab. Gave pt another specimen cup in case he was able to produce another specimen. At 0845 pt's temperature was 37.5. Pt's skin feels hot to the touch. Administered PO Tylenol. Rechecked pt's temp at 1200 and it was 36.2. Will continue to administer IV antibiotics and watch pt for fever.
--- NOTE | 2016-12-09 16:13 | PCM.PNMED ---
Subjective Date of Service Dec 09, 2016 Subjective Still nonproductive cough, and some chills. Exam Vital Signs Vital Sign - Last Date Time Temp Pulse Resp B/P Pulse Ox O2 Delivery O2 Flow Rate FiO2 12/09/16 13:25 89 18 94/63 95 Room Air 12/09/16 12:01 36.2 Intake and Output 12/08/16 12/08/16 12/09/16 Cumulative From/Thru 15:00 23:00 07:00 12/07/16 13:48 - 12/09/16 06:18 Intake Total 911 ml 200 ml 2211 ml Output Total 800 ml 2360 ml Balance 111 ml 200 ml -149 ml Intake Oral 800 ml 1600 ml IV Total 111 ml 200 ml 611 ml Output Urine Total 800 ml 2360 ml # Voids 1 # Bowel Movements 1 Exam General: Alert and oriented, no acute distress Heart: Regular Lungs: Inspiratory Crackles on the upper left anteriorly Abdomen: Soft, non-tender Extremities: No pedal edema IVs and Medications Medications Reviewed: Medications were reviewed in detail Lab and Diagnostics Result Diagram: 12/08/16 0555 12/08/16 0555 X-Rays, CTs and MRIs PROCEDURE: X-RAY CHEST, TWO VIEWS ([id number]) INDICATIONS: cough, chest pain TECHNIQUE: 2 views of the chest were acquired. COMPARISON: [facility], CR, XR CHEST 2VW, 11/11/2016, 19:46. FINDINGS: Surgical changes and devices: None. Lungs and pleura: Extensive airspace disease throughout the left lung is identified. There is mild airspace disease along the peripheral aspect of the right lower lobe. Mediastinum: Mediastinal contours are normal. Heart size is normal. Bones and chest wall: No suspicious bony abnormalities. Soft tissues appear unremarkable. IMPRESSION: Bilateral pneumonia (left significantly greater than right). Dictated by: Werner Maxwell M.D. on 12/07/2016 at 13:59 Approved by: Werner Maxwell M.D. on 12/07/2016 at 14:00 PROCEDURE: CT CHEST WITH CONTRAST ([id number]) INDICATIONS: Pneumon/possible TB/possible cavitary disease TECHNIQUE: After the administration of intravenous contrast, 5 mm thick sections acquired from the pulmonary apices to the posterior costophrenic angles. 7 mm thick coronal and sagittal MIP reformats were acquired. For radiation dose reduction , the following was used: automated exposure control, adjustment of mA and/or kV according to patient size. COMPARISON: None. FINDINGS: Image quality: Excellent. Lungs and pleura: Consolidation and volume loss involving nearly the entire left upper lobe. Focus of cavitation in the left upper lobe measuring 2.2 x 1.3 CM (se 3 im 15). Consolidation and nodular pulmonary opacities in the left lower lobe. Minimal similar opacities in the peripheral right lung greatest in the upper lobe. Mediastinum: Heart size is normal. No pericardial effusion. No mediastinal or hilar adenopathy by size criteria. Thoracic aorta and central pulmonary arteries are normal in size. Esophagus is normal in caliber. No hiatal hernia. Bones and chest wall: No suspicious bony lesions. No vertebral body compression fractures. No axillary or supraclavicular adenopathy by size criteria. Thyroid gland is present.. Abdomen: Visualized upper abdominal solid organs appear normal. Upper abdominal bowel loops are normal in caliber. IMPRESSION: Dense left upper lobe consolidation with small focus of cavitation. Lesser consolidation and pulmonary opacities in the left lower lobe and peripheral right lung. Findings are most consistent with infection. Dictated by: Dayo Ca M.D. on 12/08/2016 at 7:57 Approved by: Dayo Ca M.D. on 12/08/2016 at 8:00 Assessment & Plan The patient is a 41-year-old male who has been in [facility] for 20 years. 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 Approximately 1 month ago patient became ill and was diagnosed with diabetes and placed on metformin and insulin. He states he used to weigh over 300 pounds and has lost over 100 pounds and is down 195 pounds. In addition to weight loss he has had drenching night sweats where he has to sleep with towels on his back behind his head and on his front. He also has had a cough which is nonproductive. Patient is seen his primary care provider at the [facility] clinic and has been given azithromycin by mouth, Augmentin by mouth and now is on doxycycline by mouth. A QuantiFERON gold blood test was performed on the patient and I came back positive. The patient continues to have a pulmonary infiltrate in the left lung. Patient was sent to [facility] emergency room where he was found to have a chest x-ray consistent with bilateral pneumonia, left greater than right. Laboratory test revealed hyponatremia and hyperglycemia. Therefore given the above subjective and objective findings the patient is being admitted to the hospitalisat service for further evaluation and treatment. # Bilateral pulmonary infiltrates left greater than right - Still febrile, temp 38.7 this am - Given that patient has fever, drenching night sweats, weight loss and cough along with history of alcoholism and diabetes mellitus tuberculosis is high on the list of differential diagnoses - A recently positive serological Quantiferron gold test furthers the suspicion for active pulmonary tuberculosis - Suspect recent outpatient treatment with azithromycin, Augmentin and most recently doxycycline has given partial treatment to the above potential diagnosis. - Other possible diagnoses include resistant bacterial pneumonia such as MRSA, viral pneumonia, fungal pneumonia or aspiration pneumonia which is common in alcoholism. - CT scan of the chest results: Dense left upper lobe consolidation with small focus of cavitation. Lesser consolidation and pulmonary opacities in the left lower lobe and peripheral right lung. Findings are most consistent with infection. - sputums for AFB 3 have been ordered and 2 are pending in the lab - Pulmonary has consulted for possible bronchoscopy but not yet scheduled. - sputum culture December 08 so far with just normal marimar - blood cultures NGSF - respiratory viral PCR negative - nasopharyngeal screen for MRSA negative - urine for legionella negative - additional fungal serologies pending although cryptococcus negative - HIV non reactive - Patient needs to be in negative pressure isolation until tuberculosis has been ruled out - Infectious disease consultation with Dr. Holland has been obtained, recommends continuing Unasyn pending further results # Newly diagnosed type II diabetes mellitus - hemoglobin A1c 11.1 - Continue metformin - Accu-Cheks every before meals and at bedtime, currently 175-222 - Sliding-scale insulin coverage - Diabetic teaching # Alcoholism - Start [facility] protocol - currently denies symptoms of withdrawal - Social service consult for chemical dependency - Start thiamine and multivitamin and folic acid - Education on alcoholism. Disposition: Will depend on results of pending tests - GI Prophylaxis: Proton Pump Inhibitor VTE Prophylaxis: Sub-Q Enoxaparin VTE Mechanical Devices: Intermittant Pneumatic CD Resuscitation Status: CPR: Attempt Resuscitation Desire Delatorre MD Dec 09, 2016 16:13
[2016-12-09] MEDS: Insulin LISPRO 300 Unit/3 mL Inj SUBQ SCH ×2 (17:30→22:00)
--- NOTE | 2016-12-09 17:34 | PROG NOTE ---
[address] [address] PROGRESS NOTE PATIENT: ROXY CORDOBA : 1975 MR#: [id number] ADMIT: 12/07/2016 JOB ID: [id number] DATE: 12/09/2016 PULMONARY FOLLOWUP NOTE: PROBLEM: Pulmonary infiltrate. SUBJECTIVE: The patient indicates overall he may be feeling a little bit better. States he coughed up a rather large plug of white phlegm this morning and gave it to the nurse for processing. This is his 2nd specimen. There was no blood in it. Still having some problem with the chills and sweats. Feels clammy at times. Additional history obtained indicates that up until two months ago the patient had chickens at home. Has had chickens for many years but for the last few years has only had three chickens. The chickens have been healthy. He only got rid of the chickens because he moved two months ago and the new house would not allow chickens. He had not noted any rodents or fecal material at his older house. He has three children at home ages 10, 13, and 15. None are ill. WORK HISTORY: The patient came [place] the [place] age 19. 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 States that they unearthed some old gun will which might have been a buried there for as long as 100 years as it apparently belonged to some Serbian rema who was a contemporary of John Blanco. Subsequently has been involved in the [employer]. 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 HOBBIES: None that expose him to dust, fumes, or solvents. RECENT TRAVEL: None, though previously he would travel to many areas three times a year on vacation with his family. One was to [place], but that was about two, possibly three years ago. REVIEW OF SYSTEMS: Currently no shortness of breath. Appetite has been extremely poor. In the first two weeks of the November he ate essentially nothing. Appetite a little bit better. No other GI symptoms other than the significant weight loss documented in prior reports. No pleuritic pain. OBJECTIVE: Temperature 37.5, was 38.72 or 3 hours ago. Pulse 98, has been as high as 114. Respiratory rate 18, blood pressure 108/67, O2 sat on room air is 92%. General appearance: Somewhat tired appearing, but not particularly frail. Moving comfortably. Speaking easily. Eyes: Conjunctivae are pink and moist. Nose: No erythema or edema. Throat: Good oral hygiene. No oropharyngeal tracking or evidence of Nicolle. Lymph nodes: None palpable. Chest: Fair breath sounds bilaterally. Maybe somewhat diminished. Hint of a few crackles at the left lower lung field. Lung heller are otherwise clear. Deep breaths provoke coughing that does not sound particularly wet. No chest wall tenderness. Heart: Regular rhythm. Slightly rapid rate. Heart tones seem normal. Abdomen: Soft. Nondistended. Nontender. Bowel tones present. Extremities: No pretibial edema. IMAGING: Chest x-ray shows extensive consolidation in the left upper lobe and ill-defined opacities in the left lower lobe with some in the right mid lateral lung field. CT scan shows consolidation of the left upper lobe. Small cavitation in the left upper lung field. There are reticular nodular pulmonary opacities left lower lobe with some reticular nodular opacities in the right lung field laterally. No adenopathy noted. LABORATORY DATA: Shows a cryptococcal antigen is negative. Urine for Legionella is negative. Two sputum for acid-fast are pending. Urine for Streptococcus pneumoniae antigen is negative. Sputum Gram stain of December 08, 2016 shows a few polys. ASSESSMENT: The patient is currently in airborne isolation to rule out tuberculosis. Rather extensive disease and if this is indeed a pulmonary tuberculosis appears to be more of a primary pneumonic process. Would expect him to be quite a bit sicker given the extent of the lung involvement. I am really not convinced this represents TB. He does have a positive QuantiFERON Gold but given that he was in [place] for the first 17 years of his life I am not quite sure what that indicates as this well could be latent TB. However, he has new diagnosis of diabetes mellitus and may represent activation. Fungal disease is certainly possible. He works in [employer] which would expose him to some of the atypical mycobacterial diseases and some of the fungal diseases. Cryptococcal antigen is negative. Some remote exposure to coccidioidomycosis. Since two sputa are pending and the patient seems to be doing reasonably well I think we can hold off on bronchoscopy for the moment given the logistic dilemma of bronchoscopy on the weekend in a patient with airborne isolation. In addition, specimens would not be processed over the weekend, making performance of bronchoscopy a nonstarter over the weekend. If however the condition changes we can proceed. Currently on Unasyn and fluconazole. Clinically feeling better and therefore I think we can await the results of the sputa that are pending. PLAN: 1. Continue collecting sputa for AFB. If diagnosis is not forthcoming, then could proceed with bronchoscopy as warranted. 2. Consider hypersensitivity pneumonitis with exposure to chickens.
--- NOTE | 2016-12-09 18:00 | NUR ---
Nasal swab Nasal swab specimen sent for bacterial culture at 1800 hrs.
[2016-12-09 18:08] VITALS: BP 148/90; PULSE 106; RESP 19; O2SAT 93
[2016-12-09 21:10] VITALS: BP 111/77; PULSE 104; RESP 16; O2SAT 93
[2016-12-10] MEDS: Ampicillin-Sulbactam Inj 3,000 MG in 0.9% Sodium Chloride 100 ML IV SCH ×2 (04:54→10:39)
[2016-12-10 04:56] VITALS: BP 106/69; PULSE 107; RESP 18; O2SAT 94
--- NOTE | 2016-12-10 07:20 | NUR ---
Fever Pt. spiked 100.7 fever around 0430. Tylenol PO given. Plan of care gone over with pt.
[2016-12-10 08:56] VITALS: BP 101/69; PULSE 83; RESP 18; O2SAT 93
[2016-12-10] MEDS: Sodium Chloride LOK Flush 10 mL Syringe IVFLUSH SCH ×3 (09:01→22:32)
[2016-12-10] MEDS: Insulin LISPRO 300 Unit/3 mL Inj SUBQ SCH ×4 (10:32→22:00)
[2016-12-10] MEDS: Multivit-Miner-Folic Acid-Iron Tablet PO SCH (10:33)
--- NOTE | 2016-12-10 11:30 | NUR ---
TB Per Micro, pt is positive for TB. MD notified in rounds, pt made aware as well. Precautions up and family members encouraged to use paprs in room. Will continue to monitor with frequent rounds.
[2016-12-10] MEDS ORDERED: 0.9% Sodium Chloride 100 ML ONE (11:37)
[2016-12-10 11:49] VITALS: BP 113/74; PULSE 89; RESP 18; O2SAT 94
[2016-12-10] MEDS: Pantoprazole 40 mg ER24 Tablet PO SCH (11:51)
--- NOTE | 2016-12-10 14:10 | NUR ---
Disposition/PO Intake Pt disposition beginning of shift, quiet, non-eye contact, passive with care, compliant but seemed withdrawn or depressed. As shift went on and family visited at BS pt jamienor picked up and more conversive with RN during care and assessment. Pt refusing meal trays today, does not want to eat hospital food. Pt encouraged with tray of fruit for breakfast, pt eating some bites. BG 155, 1 unit sq ins given after pt had eaten. Family came to visit with pt at today, teaching done on protective wear and precautions, encouraged family members to get tested for TB after result from micro came back positive. Pt seemed quiet and depressed with results of test. RN encouraged pt that there is treatment for what he has and it is good that we caught it and he is in a safe place that provides care, to which pt was in agreement. Pt's family requesting that someone be with the pt when dr speaks to him or any results of test are given as the pt is depressed about his circumstances and overwhelmed per family members at BS. Pt family members names and phone numbers placed on front of chart today. Will continue to monitor with frequent rounds.
--- NOTE | 2016-12-10 14:28 | PCM.PNMED ---
Subjective Date of Service Dec 10, 2016 Subjective No complaints Exam Vital Signs Vital Sign - Last Date Time Temp Pulse Resp B/P Pulse Ox O2 Delivery O2 Flow Rate FiO2 12/10/16 11:49 36.7 89 18 113/74 94 Room Air Intake and Output 12/09/16 12/09/16 12/10/16 Cumulative From/Thru 15:00 23:00 07:00 12/07/16 13:48 - 12/10/16 06:37 Intake Total 510 ml 909 ml 300 ml 3930 ml Output Total 750 ml 1075 ml 425 ml 4610 ml Balance -240 ml -166 ml -125 ml -680 ml Intake Oral 400 ml 800 ml 250 ml 3050 ml IV Total 110 ml 109 ml 50 ml 880 ml Output Urine Total 750 ml 1075 ml 425 ml 4610 ml # Voids 1 # Bowel Movements 0 1 0 2 Exam General: Arouses easily to voice and alert but not talking much, no acute distress Heart: Regular Lungs: Decreased BS left upper lung and some scattered inspir cr Abdomen: Soft, non-tender Extremities: No pedal edema IVs and Medications Medications Reviewed: Medications were reviewed in detail Lab and Diagnostics Result Diagram: 12/08/16 0512/08/16 0555 X-Rays, CTs and MRIs PROCEDURE: X-RAY CHEST, TWO VIEWS ([id number]) INDICATIONS: cough, chest pain TECHNIQUE: 2 views of the chest were acquired. COMPARISON: [facility], CR, XR CHEST 2VW, 11/11/2016, 19:46. FINDINGS: Surgical changes and devices: None. Lungs and pleura: Extensive airspace disease throughout the left lung is identified. There is mild airspace disease along the peripheral aspect of the right lower lobe. Mediastinum: Mediastinal contours are normal. Heart size is normal. Bones and chest wall: No suspicious bony abnormalities. Soft tissues appear unremarkable. IMPRESSION: Bilateral pneumonia (left significantly greater than right). Dictated by: Werner Maxwell M.D. on 12/07/2016 at 13:59 Approved by: Werner Maxwell M.D. on 12/07/2016 at 14:00 PROCEDURE: CT CHEST WITH CONTRAST ([id number]) INDICATIONS: Pneumon/possible TB/possible cavitary disease TECHNIQUE: After the administration of intravenous contrast, 5 mm thick sections acquired from the pulmonary apices to the posterior costophrenic angles. 7 mm thick coronal and sagittal MIP reformats were acquired. For radiation dose reduction , the following was used: automated exposure control, adjustment of mA and/or kV according to patient size. COMPARISON: None. FINDINGS: Image quality: Excellent. Lungs and pleura: Consolidation and volume loss involving nearly the entire left upper lobe. Focus of cavitation in the left upper lobe measuring 2.2 x 1.3 CM (se 3 im 15). Consolidation and nodular pulmonary opacities in the left lower lobe. Minimal similar opacities in the peripheral right lung greatest in the upper lobe. Mediastinum: Heart size is normal. No pericardial effusion. No mediastinal or hilar adenopathy by size criteria. Thoracic aorta and central pulmonary arteries are normal in size. Esophagus is normal in caliber. No hiatal hernia. Bones and chest wall: No suspicious bony lesions. No vertebral body compression fractures. No axillary or supraclavicular adenopathy by size criteria. Thyroid gland is present.. Abdomen: Visualized upper abdominal solid organs appear normal. Upper abdominal bowel loops are normal in caliber. IMPRESSION: Dense left upper lobe consolidation with small focus of cavitation. Lesser consolidation and pulmonary opacities in the left lower lobe and peripheral right lung. Findings are most consistent with infection. Dictated by: Dayo Ca M.D. on 12/08/2016 at 7:57 Approved by: Dayo Ca M.D. on 12/08/2016 at 8:00 Assessment & Plan The patient is a 41-year-old male who has been in [facility] for 20 years. 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 Approximately 1 month ago patient became ill and was diagnosed with diabetes and placed on metformin and insulin. He states he used to weigh over 300 pounds and has lost over 100 pounds and is down 195 pounds. In addition to weight loss he has had drenching night sweats where he has to sleep with towels on his back behind his head and on his front. He also has had a cough which is nonproductive. Patient is seen his primary care provider at the [facility] and has been given azithromycin by mouth, Augmentin by mouth and now is on doxycycline by mouth. A QuantiFERON gold blood test was performed on the patient and I came back positive. The patient continues to have a pulmonary infiltrate in the left lung. Patient was sent to [facility] emergency room where he was found to have a chest x-ray consistent with bilateral pneumonia, left greater than right. Laboratory test revealed hyponatremia and hyperglycemia. Therefore given the above subjective and objective findings the patient is being admitted to the hospitalisat service for further evaluation and treatment. # Acute Pulmonary TB - Bilateral pulmonary infiltrates left greater than right - Still febrile, temp 38.2 this am - Given that patient has fever, drenching night sweats, weight loss and cough along with history of alcoholism and diabetes mellitus tuberculosis is high on the list of differential diagnoses - A recently positive serological Quantiferron gold test furthers the suspicion for active pulmonary tuberculosis - Suspect recent outpatient treatment with azithromycin, Augmentin and most recently doxycycline has given partial treatment to the above potential diagnosis. - Other possible diagnoses include resistant bacterial pneumonia such as MRSA, viral pneumonia, fungal pneumonia or aspiration pneumonia which is common in alcoholism. - CT scan of the chest results: Dense left upper lobe consolidation with small focus of cavitation. Lesser consolidation and pulmonary opacities in the left lower lobe and peripheral right lung. Findings are most consistent with infection. - sputums for AFB 3 have been ordered and 2 are pending in the lab - as of today December 08 one is pending but the one from December 09 shows TB - Pulmonary has consulted for possible bronchoscopy but no longer needed with TB diagnosis - sputum culture December 08 so far with just normal marimar - blood cultures NGSF - respiratory viral PCR negative - nasopharyngeal screen for MRSA negative - urine for legionella negative - additional fungal serologies pending although cryptococcus negative - HIV non reactive - in negative pressure isolation until tuberculosis has been ruled out - Infectious disease consultation with Dr. Holland has been obtained, initially placed on Unasyn pending further results - With sputum from December 09 positive today for TB will DC Unasyn - Discussed on phone with Dr Holland - will begin isoniazid, rifampin, pyrazinamide, ethambutol, and vit B6 - Dr Holland will be back tomorrow and will notify the health dept # Recently diagnosed type II diabetes mellitus (Dx one month [employer]) - hemoglobin A1c 11.1 - Continue metformin - Accu-Cheks every before meals and at bedtime, yesterday 175-222, today 100s - Sliding-scale insulin coverage - Diabetic teaching # Alcoholism - Started on CIWA protocol - currently denies symptoms of withdrawal - Social service consulted for chemical dependency - Started thiamine and multivitamin and folic acid - Education on alcoholism. Disposition: As per Dr Holland, not yet determined. - GI Prophylaxis: Proton Pump Inhibitor VTE Prophylaxis: Sub-Q Enoxaparin VTE Mechanical Devices: Intermittant Pneumatic CD Resuscitation Status: CPR: Attempt Resuscitation Desire Delatorre MD Dec 10, 2016 14:28
--- NOTE | 2016-12-10 15:06 | NUR ---
Pyramzinamide Per pharmacy, not in stock, they are calling around, probably will not have to give pt until 12/11/2016.
[2016-12-10 16:20] VITALS: BP 123/80; PULSE 108; RESP 18; O2SAT 95
--- NOTE | 2016-12-10 16:23 | NUR ---
Social Work: Screening D: EMR reviewed. Pt is a 41 y/o male admitted for pneumonia and TB per H&P. Pt does not have insurance or a PCP. Pt gave verbal consent to contact sister, Simone Araya [phone] for discharge planning. SW met with pt at bedside to conduct screening. SW explained role and wrote phone number on white board. Pt requested resources for hospital bill/insurance. SW made referral to [facility]. SW received MD order for CD. SW discussed ETOH with pt and pt declined any CD resources. Pt states "he knows his limits and only drinks when he wants to - not all the time." SW encouraged pt to call SW if pt would like CD resources or if pt would like to talk about ETOH. Pt's CIWA was 15 on 12/08 and dropped to 1 of 12/09. Pt was pleasant and agreed to contact SW if he had any questions regarding ETOH/CD services. SW will continue to follow for needs. Pt positive for TB. Per MD, ID will report TB to [facility] per hospital policy. A: Pt who is independent at baseline. P: Pt states his family will provide transport home via POV when pt is medically stable for discharge. SW will follow for discharge needs due to TB diagnosis. SW will make referral to [facility] - SW informed pt that [facility] will not return until 12/11 and will meet with pt to discuss insurance/billing. ERIC Paez
--- NOTE | 2016-12-10 16:27 | NUR ---
Melatonin Per pt, requesting no more melatonin. He states, "kicked in early this morning instead of last night and made me sleepy this morning most of the morning."
--- NOTE | 2016-12-10 17:04 | PROG NOTE ---
[address] [address] PROGRESS NOTE PATIENT: ROXY CORDOBA : 1975 MR#: [id number] ADMIT: 12/07/2016 JOB ID: [id number] DATE: 12/10/2016 PROBLEM: Pulmonary infiltrate. SUBJECTIVE: The patient feeling better today. Maybe coughing up a little bit more. Remains clear or white, minimal in quantity though the cough may be somewhat worse. Breathing more comfortably. Appetite may be a little bit better. Overall feeling better, however. OBJECTIVE: Temperature 37.8 with T-max being 38.2 this morning, pulse 83 when afebrile, 107 when febrile, respiratory rate 18, blood pressure 123/80, O2 sat on room air is 95%. General appearance: More animated today. Interacting easily. Chest: Fairly good breath sounds on the right. A few crackles at the left mid lung field. Decreased breath sounds at the left base. No use of accessory muscles. Heart: Regular rhythm. Heart tones normal. Abdomen is soft and nontender. 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 MEDICATIONS: The patient started on ethambutol, pyridoxine, rifampin, Isoniazid, and Pyrazinamide. ASSESSMENT: Mycobacterium tuberculosis. Patient started on four drugs. The patient has been informed both by the primary physician as well as myself about the diagnosis. I emphasized the importance of no alcohol use and good control of diabetes given that number if the medications have hepatic side effects. We had been scheduled for bronchoscopy tomorrow. That is no longer necessary. PLAN: 1. Antituberculosis therapy. 2. Pulmonary service will follow at a distance. If problems or questions arise, please feel free to contact us.
[2016-12-10 21:48] VITALS: BP 104/67; PULSE 84; RESP 18; O2SAT 95
--- NOTE | 2016-12-11 02:42 | NUR ---
Activity On initial assessment, patient cooperative with care but passive with eye contact and communication. Blood glucose level for 147 and no Humalog indicated. Patient denied any pain and did not request anything before going to sleep. VSS. Call light within reach. Care continues.
[2016-12-11 07:35] VITALS: BP 112/69; PULSE 112; RESP 18; O2SAT 93
[2016-12-11] MEDS: Pantoprazole 40 mg ER24 Tablet PO SCH (10:18)
[2016-12-11] MEDS: Sodium Chloride LOK Flush 10 mL Syringe IVFLUSH SCH ×2 (10:18→16:30)
[2016-12-11] MEDS: Multivit-Miner-Folic Acid-Iron Tablet PO SCH (10:21)
[2016-12-11] MEDS: Insulin LISPRO 300 Unit/3 mL Inj SUBQ SCH ×4 (10:24→22:00)
--- NOTE | 2016-12-11 12:40 | PCM.PNMED ---
Subjective Date of Service Dec 11, 2016 Subjective no complaints Exam Vital Signs Vital Sign - Last Date Time Temp Pulse Resp B/P Pulse Ox O2 Delivery O2 Flow Rate FiO2 12/11/16 07:35 37.1 112 18 112/69 93 Room Air Intake and Output 12/10/16 12/10/16 12/11/16 Cumulative From/Thru 15:00 23:00 07:00 12/07/16 13:48 - 12/10/16 22:00 Intake Total 1320 ml 5250 ml Output Total 900 ml 5510 ml Balance 420 ml -260 ml Intake Oral 1200 ml 4250 ml IV Total 120 ml 1000 ml Output Urine Total 900 ml 5510 ml # Voids 1 # Bowel Movements 2 Exam General: Alert, no acute distress Heart: Regular Lungs: decreased breath sounds left lung Abdomen: Soft, non-tender Extremities: No pedal edema Lab and Diagnostics Result Diagram: 12/08/16 0555 12/08/16 0555 X-Rays, CTs and MRIs PROCEDURE: X-RAY CHEST, TWO VIEWS ([id number]) INDICATIONS: cough, chest pain TECHNIQUE: 2 views of the chest were acquired. COMPARISON: [facility], CR, XR CHEST 2VW, 11/11/2016, 19:46. FINDINGS: Surgical changes and devices: None. Lungs and pleura: Extensive airspace disease throughout the left lung is identified. There is mild airspace disease along the peripheral aspect of the right lower lobe. Mediastinum: Mediastinal contours are normal. Heart size is normal. Bones and chest wall: No suspicious bony abnormalities. Soft tissues appear unremarkable. IMPRESSION: Bilateral pneumonia (left significantly greater than right). Dictated by: Werner Maxwell M.D. on 12/07/2016 at 13:59 Approved by: Werner Maxwell M.D. on 12/07/2016 at 14:00 PROCEDURE: CT CHEST WITH CONTRAST ([id number]) INDICATIONS: Pneumon/possible TB/possible cavitary disease TECHNIQUE: After the administration of intravenous contrast, 5 mm thick sections acquired from the pulmonary apices to the posterior costophrenic angles. 7 mm thick coronal and sagittal MIP reformats were acquired. For radiation dose reduction , the following was used: automated exposure control, adjustment of mA and/or kV according to patient size. COMPARISON: None. FINDINGS: Image quality: Excellent. Lungs and pleura: Consolidation and volume loss involving nearly the entire left upper lobe. Focus of cavitation in the left upper lobe measuring 2.2 x 1.3 CM (se 3 im 15). Consolidation and nodular pulmonary opacities in the left lower lobe. Minimal similar opacities in the peripheral right lung greatest in the upper lobe. Mediastinum: Heart size is normal. No pericardial effusion. No mediastinal or hilar adenopathy by size criteria. Thoracic aorta and central pulmonary arteries are normal in size. Esophagus is normal in caliber. No hiatal hernia. Bones and chest wall: No suspicious bony lesions. No vertebral body compression fractures. No axillary or supraclavicular adenopathy by size criteria. Thyroid gland is present.. Abdomen: Visualized upper abdominal solid organs appear normal. Upper abdominal bowel loops are normal in caliber. IMPRESSION: Dense left upper lobe consolidation with small focus of cavitation. Lesser consolidation and pulmonary opacities in the left lower lobe and peripheral right lung. Findings are most consistent with infection. Dictated by: Dayo Ca M.D. on 12/08/2016 at 7:57 Approved by: Dayo Ca M.D. on 12/08/2016 at 8:00 Assessment & Plan The patient is a 41-year-old male who has been in [facility] for 20 years. 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 Approximately 1 month ago patient became ill and was diagnosed with diabetes and placed on metformin and insulin. He states he used to weigh over 300 pounds and has lost over 100 pounds and is down 195 pounds. In addition to weight loss he has had drenching night sweats where he has to sleep with towels on his back behind his head and on his front. He also has had a cough which is nonproductive. Patient is seen his primary care provider at the [facility] and has been given azithromycin by mouth, Augmentin by mouth and now is on doxycycline by mouth. A QuantiFERON gold blood test was performed on the patient and I came back positive. The patient continues to have a pulmonary infiltrate in the left lung. Patient was sent to [facility] emergency room where he was found to have a chest x-ray consistent with bilateral pneumonia, left greater than right. Laboratory test revealed hyponatremia and hyperglycemia. Therefore given the above subjective and objective findings the patient is being admitted to the hospitalisat service for further evaluation and treatment. # Acute Pulmonary TB - Bilateral pulmonary infiltrates left greater than right - Still febrile, temp 38.2 this am - Given that patient has fever, drenching night sweats, weight loss and cough along with history of alcoholism and diabetes mellitus tuberculosis is high on the list of differential diagnoses - A recently positive serological Quantiferron gold test furthers the suspicion for active pulmonary tuberculosis - recent outpatient treatment with azithromycin, Augmentin and most recently doxycycline - Other possible diagnoses considered include resistant bacterial pneumonia such as MRSA, viral pneumonia, fungal pneumonia or aspiration pneumonia which is common in alcoholism. - CT scan of the chest results: Dense left upper lobe consolidation with small focus of cavitation. Lesser consolidation and pulmonary opacities in the left lower lobe and peripheral right lung. Findings are most consistent with infection. - sputums for AFB 3 have been ordered and 2 are pending in the lab - as of today December 08 one is pending but the one from December 09 shows TB - Pulmonary had consulted for possible bronchoscopy but no longer needed with TB diagnosis - blood cultures NGSF - respiratory viral PCR negative - nasopharyngeal screen for MRSA negative - urine for legionella negative - additional fungal serologies pending although cryptococcus negative - HIV non reactive - in negative pressure isolation for his tuberculosis - Infectious disease consultation with Dr. 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 Disposition: Per Dr Holland his discharge date will be determined by the health dept - GI Prophylaxis: Proton Pump Inhibitor VTE Prophylaxis: Sub-Q Enoxaparin VTE Mechanical Devices: Intermittant Pneumatic CD Resuscitation Status: CPR: Attempt Resuscitation Desire Delatorre MD Dec 11, 2016 12:40 Desire Delatorre MD Dec 11, 2016 12:40
[2016-12-11 14:36] VITALS: BP 101/70; PULSE 110; RESP 18; O2SAT 95
--- NOTE | 2016-12-11 14:42 | NUR ---
NUTRITION FOLLOW UP: ASSESS: 41 YO male admitted for acute pulmonary TB. Per notes, pt reports that he was diagnosed with diabetes 1 month ago and started on metformin and insulin. PO intake appears to be improved. Pt on CIWA protocol. PMHx: DM type 2, etoh abuse. LABS: Reviewed. Cr 0.59, Glu 174, A1c 11.1, Alb 3.5. MEDS: Reviewed. Insulin. GI: BM x 1 today. CURRENT WT: 83.4 kg (bed scale). Wt November 11, 2016: 100 kg (Stated). Per notes pt states he used to weigh 300 lbs which would mean that pt has lost 38.28% body weight, unknown timeframe. DIET: Consistent Carb. PO intake 75-100%. ESTIMATED NEEDS: 0071-0111 kcals (30-35 kcals/kg BW), 100-125 g protein (1.2-1.5 g/kg BW) NUTRITION DIAGNOSIS: 1.) Inadequate oral intake related to decreased ability to consume sufficient energy as evidenced by current PO intake of 5% of meals and severe wt loss reported.---IMPROVING. 2.) Altered nutrition related lab values related to new diagnosis of diabetes as evidenced by A1C of 11.1.---PERSISTS. NUTRITION INTERVENTION: 1.) Continue current diet and supplements as ordered. MONITOR/EVALUATE: PO intake, wt, diabetic education, labs, nutrition status. Follow per moderate nutrition risk guidelines. Addendum: 12/11/16 at [address] NUTRITION EDUCATION Attempted education over phone (RD not fit-tested); pt did not answer. Handouts given to RN to give to pt re diabetic diet with RD phone number and instructions to call to discuss diet and possible referral to outpatient diabetes education program. Per discussion with RN, likely pt will not call as he has not been interested in discussing his diabetes diagnosis.
--- NOTE | 2016-12-11 16:26 | PROG NOTE ---
[address] [address] PROGRESS NOTE PATIENT: ROXY CORDOBA : 1975 MR#: [id number] ADMIT: 12/07/2016 JOB ID: [id number] DATE: 12/11/2016 REASON FOR FOLLOWUP: Pulmonary tuberculosis. INTERVAL HISTORY: Over the weekend, I was notified that his nucleic acid implication on the sputum for tuberculosis was positive. On that basis, I went ahead and discussed with the hospitalist the doses and types of antimycobacterial agents to be used. He was started successfully on these drugs yesterday. Today, the patient says he is feeling okay. He does note he still has a very productive and hacking cough, but his fevers and chills have resolved. In general, he may be feeling a little bit better outside of the cough. No nausea, vomiting, diarrhea are reported. PHYSICAL EXAMINATION: Reveals an afebrile gentleman, temp 37.1, he is still having night sweats though. Temp 37.8 yesterday afternoon. Nothing since. Pulse 112, respiratory rate 18, blood pressure 112/69. He is saturating well on room air. Examination of the head: No trauma. Oral cavity negative. Lungs with diffuse left rales. Cardiac tones regular rate and rhythm without murmur. Abdomen: Soft and nontender. The patient is showing no evidence of alcohol withdrawal despite his reported prodigious Tequila consumption on a daily basis. No new hematology or chemistries are available. Recall that he did have normal liver function tests on the . Urinalysis without white cells. Serologic studies were reviewed. A wide variety of studies had been done before we knew the diagnosis. He has a negative hep C and negative urine histo antigen, negative cryptococcal antigen, negative HIV, negative urine Legionella. Of particular importance, of course, is the fact his TB PCR is positive. His first AFB smear is, however, negative. IMPRESSION: This patient has pulmonary tuberculosis. His risk factors include alcoholism, diabetes and being foreign born. At this point, he seems to be improving, having only started his treatment yesterday. In looking at the computer, I see only two sputum AFBs available and will need obviously to obtain one more as we are just now one day into therapy. This should not be a major issue. Susceptibilities will be an important part of this patient's management. In discussing the details of his home life, the patient lives at home with his and 9-year-old and 13-year-old children. There are no small children at home. 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 This case discussed in detail with Ksenia of the Public Health team. She is aware of this patient and will be coming by to do his full [facility] intake on December 13. RECOMMENDATIONS: 1. One additional sputum for AFB should be done today. 2. The patient will continue on four-drug therapy as well as the B vitamins. 3. The [facility] will be coming by to find out more from this patient on Sunday and hopefully we can discharge him to home later in the week with plans to isolate him at home and with directly observed therapy.
--- NOTE | 2016-12-11 18:19 | NUR ---
Shortness of Breath, Activity Patient denies any shortness of breath, chills, pain or nausea this shift. Patient mainly rested in bed this shift, ambulating to bathroom when needed. Care is ongoing.
[2016-12-12] MEDS: Sodium Chloride LOK Flush 10 mL Syringe IVFLUSH SCH ×3 (00:30→17:21)
[2016-12-12 00:50] VITALS: BP 103/70; PULSE 104; RESP 18; O2SAT 93
--- NOTE | 2016-12-12 05:13 | NUR ---
Sleep Patient has been sleeping most of shift. Patient up to bathroom independent in room. Blood sugar has been stable this shift. Cough has been minimal this shift. Vitals stable. Patient care continues.
[2016-12-12] MEDS: Insulin LISPRO 300 Unit/3 mL Inj SUBQ SCH ×4 (08:00→22:00)
[2016-12-12 08:01] VITALS: BP 102/68; PULSE 82; RESP 18; O2SAT 96
[2016-12-12] MEDS: Pantoprazole 40 mg ER24 Tablet PO SCH (08:21)
[2016-12-12] MEDS: Multivit-Miner-Folic Acid-Iron Tablet PO SCH (08:24)
--- NOTE | 2016-12-12 11:39 | NUR ---
Social Work- Readiness for Discharge Data: EMR reviewed. Pt is on day 5 of hospitalization for Pneumonia. Pt is positive for TB. [facility] Officials are anticipated to interview pt tomorrow per protocol. Per ID, KARLEE was notified of positive TB test. [facility] is aware of pt and will continue to follow. Pt has no insurance at this time. NURSE RECEPTIONIST provided [facility] applications in both [place] and Filipino. RN provided this at bedside with proper gown and respirator precautions. Pt anticipated to discharge home with no discharge needs when medically cleared. SW will continue to follow if needs arise. Assessment: Pt who is + for TB and who requires interview with [facility] Officials. Plan: [facility] Officials must interview pt prior to discharge. [facility] applications have been provided. [facility] following pt. Pt anticipated to discharge home with no discharge needs when medically cleared. SW will continue to follow if needs arise. ERIC Felix
[2016-12-12 14:57] VITALS: BP 102/69; PULSE 92; RESP 18; O2SAT 94
--- NOTE | 2016-12-12 15:44 | PCM.PNMED ---
Subjective Date of Service Dec 12, 2016 Subjective He is seen to follow-up bilateral lung infiltrates of active tuberculosis. He tells me he has no idea where he picked this up and that no friends or family members have had tuberculosis symptoms. He can think of no one he has worked with recently who may have had it. Exam Vital Signs Vital Sign - Last Date Time Temp Pulse Resp B/P Pulse Ox O2 Delivery O2 Flow Rate FiO2 12/12/16 08:01 36.6 82 18 102/68 96 Room Air Intake and Output 12/11/16 12/11/16 12/12/16 Cumulative From/Thru 15:00 23:00 07:00 12/07/16 13:48 - 12/11/16 20:47 Intake Total 650 ml 1440 ml 7340 ml Output Total 1200 ml 750 ml 7460 ml Balance -550 ml 690 ml -120 ml Intake Oral 650 ml 1440 ml 6340 ml IV Total 1000 ml Output Urine Total 1200 ml 750 ml 7460 ml # Voids 1 # Bowel Movements 0 0 2 Exam His maximum temperature is 37.7. His vital signs are stable. I have visited him [id number] from a several foot distance today. He is breathing quite well and has no edema. His questions are answered. He asks what kind of pneumonia he has and I reminded him that he is being treated for tuberculosis pulmonary infiltrates. IVs and Medications Medications Reviewed: Medications were reviewed in detail Lab and Diagnostics Result Diagram: 12/08/16 0555 12/08/16 0555 X-Rays, CTs and MRIs PROCEDURE: X-RAY CHEST, TWO VIEWS ([id number]) INDICATIONS: cough, chest pain TECHNIQUE: 2 views of the chest were acquired. COMPARISON: [facility], CR, XR CHEST 2VW, 11/11/2016, 19:46. FINDINGS: Surgical changes and devices: None. Lungs and pleura: Extensive airspace disease throughout the left lung is identified. There is mild airspace disease along the peripheral aspect of the right lower lobe. Mediastinum: Mediastinal contours are normal. Heart size is normal. Bones and chest wall: No suspicious bony abnormalities. Soft tissues appear unremarkable. IMPRESSION: Bilateral pneumonia (left significantly greater than right). Dictated by: Werner Maxwell M.D. on 12/07/2016 at 13:59 Approved by: Werner Maxwell M.D. on 12/07/2016 at 14:00 PROCEDURE: CT CHEST WITH CONTRAST ([id number]) INDICATIONS: Pneumon/possible TB/possible cavitary disease TECHNIQUE: After the administration of intravenous contrast, 5 mm thick sections acquired from the pulmonary apices to the posterior costophrenic angles. 7 mm thick coronal and sagittal MIP reformats were acquired. For radiation dose reduction , the following was used: automated exposure control, adjustment of mA and/or kV according to patient size. COMPARISON: None. FINDINGS: Image quality: Excellent. Lungs and pleura: Consolidation and volume loss involving nearly the entire left upper lobe. Focus of cavitation in the left upper lobe measuring 2.2 x 1.3 CM (se 3 im 15). Consolidation and nodular pulmonary opacities in the left lower lobe. Minimal similar opacities in the peripheral right lung greatest in the upper lobe. Mediastinum: Heart size is normal. No pericardial effusion. No mediastinal or hilar adenopathy by size criteria. Thoracic aorta and central pulmonary arteries are normal in size. Esophagus is normal in caliber. No hiatal hernia. Bones and chest wall: No suspicious bony lesions. No vertebral body compression fractures. No axillary or supraclavicular adenopathy by size criteria. Thyroid gland is present.. Abdomen: Visualized upper abdominal solid organs appear normal. Upper abdominal bowel loops are normal in caliber. IMPRESSION: Dense left upper lobe consolidation with small focus of cavitation. Lesser consolidation and pulmonary opacities in the left lower lobe and peripheral right lung. Findings are most consistent with infection. Dictated by: Dayo Ca M.D. on 12/08/2016 at 7:57 Approved by: Dayo Ca M.D. on 12/08/2016 at 8:00 Assessment & Plan The patient is a 41-year-old male who has been in [facility] for 20 years. 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 Approximately 1 month ago patient became ill and was diagnosed with diabetes and placed on metformin and insulin. He states he used to weigh over 300 pounds and has lost over 100 pounds and is down 195 pounds. In addition to weight loss he has had drenching night sweats where he has to sleep with towels on his back behind his head and on his front. He also has had a cough which is nonproductive. Patient is seen his primary care provider at the [facility] and has been given azithromycin by mouth, Augmentin by mouth and now is on doxycycline by mouth. A QuantiFERON gold blood test was performed on the patient and I came back positive. The patient continues to have a pulmonary infiltrate in the left lung. Patient was sent to [facility] emergency room where he was found to have a chest x-ray consistent with bilateral pneumonia, left greater than right. # Acute Pulmonary TB - Bilateral pulmonary infiltrates left greater than right - Still febrile, temp 37.7this am - Given that patient has fever, drenching night sweats, weight loss and cough along with history of alcoholism and diabetes mellitus, tuberculosis was high on the list of differential diagnoses and was confirmed - A recently positive serological Quantiferron gold test suggests active pulmonary tuberculosis - recent outpatient treatment with azithromycin, Augmentin and most recently doxycycline without benefit. - CT scan of the chest results: Dense left upper lobe consolidation with small focus of cavitation. Lesser consolidation and pulmonary opacities in the left lower lobe and peripheral right lung. Findings are most consistent with infection. - sputums for AFB 3 have been ordered and 2 are pending in the lab - as of today December 08 one is pending but the one from December 09 shows TB - Pulmonary had consulted for possible bronchoscopy but no longer needed with TB diagnosis - blood cultures NGSF - respiratory viral PCR negative - nasopharyngeal screen for MRSA negative - urine for legionella negative - additional fungal serologies pending although cryptococcus negative - HIV non reactive - in negative pressure isolation for his tuberculosis - Infectious disease consultation with Dr. Holland has been obtained - With sputum from December 09 positive for TB the Unasyn was stopped - Discussed on phone with Dr Holland December 10 - and began isoniazid, rifampin, pyrazinamide, ethambutol, and vit B6 - Dr Holland saw him yesterday but not today - Per Dr Holland his discharge date will be determined by the health dept after setting up a monitored therapy program and deciding on the best community arrangements/history. 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 - Diabetic teaching # Alcoholism -Has not needed CIWA protocol - currently denies symptoms of withdrawal - Social service consulted for chemical dependency - Started thiamine and multivitamin and folic acid - Education on alcoholism. Disposition: Per Dr Holland his discharge date will be determined by the health dept - GI Prophylaxis: Proton Pump Inhibitor VTE Prophylaxis: Sub-Q Enoxaparin VTE Mechanical Devices: Intermittant Pneumatic CD Resuscitation Status: CPR: Attempt Resuscitation Maya Wells MD Dec 12, 2016 11:27
--- NOTE | 2016-12-12 18:47 | NUR ---
Activity Patient alert and oriented this shift. Patient ambulating in room without difficulty, but resting in bed for most of shift. Care is ongoing.
[2016-12-12] MEDS ORDERED: Insulin GLARgine 100 Unit/mL Syringe SUBQ SCH (21:00)
[2016-12-12 21:57] VITALS: BP 107/71; PULSE 87; RESP 18; O2SAT 94
[2016-12-13] MEDS: Sodium Chloride LOK Flush 10 mL Syringe IVFLUSH SCH ×3 (01:10→16:30)
--- NOTE | 2016-12-13 04:46 | NUR ---
Cough Patient stated he continuous to frequently cough. Patient denies pain. Up independent in room to bathroom. Patient did not require any additional insulin coverage outside of his Lantus this shift. Blood sugar 163 last check. Patient sleeping most of shift. Care continues.
[2016-12-13 06:06] VITALS: BP 100/68; PULSE 98; RESP 18; O2SAT 92
[2016-12-13 08:57] VITALS: BP 104/68; PULSE 94; RESP 19; O2SAT 91
[2016-12-13] MEDS: Pantoprazole 40 mg ER24 Tablet PO SCH (09:02)
[2016-12-13] MEDS: Insulin LISPRO 300 Unit/3 mL Inj SUBQ SCH ×3 (09:03→17:30)
[2016-12-13] MEDS: Multivit-Miner-Folic Acid-Iron Tablet PO SCH (09:05)
[2016-12-13 10:36] LABS: BASOPHILS % (AUTO) 0.1 % (0-3); EOSINOPHILS % (AUTO) 2.1 % (0-5); MONOCYTES % (AUTO) 8.9 % (4-12); Mean Corpuscular Hemoglobin 28.3 pg (27.0-35.0); Mean Corpuscular Volume 81.7 fL (81-100); NEUTROPHILS % (AUTO) 69.9 % (40-74); Platelet Count 301 bil/L (150-400)
--- NOTE | 2016-12-13 11:21 | PROG NOTE ---
[address] [address] PROGRESS NOTE PATIENT: ROXY CORDOBA : 1975 MR#: [id number] ADMIT: 12/07/2016 JOB ID: [id number] DATE: 12/13/2016 REASON FOR FOLLOWUP: Pulmonary tuberculosis. INTERVAL HISTORY: The patient reports his fevers and cough seem a bit better, though not totally so. He is ready to be discharged today, he hopes, and states that overall he feels better with less fever, less sweats, and less cough though all persist. There has been no hemoptysis and no abdominal complaints. So far he has tolerated his four drug TB therapy quite well. PHYSICAL EXAMINATION: Temp 36.6, pulse 94, respiratory rate 19, saturating 91% on room air. The fevers he had during his first few days in the hospital have resolved and his last temperature spike is now almost 48 hours ago. The patient is awake and alert. Has no evidence of alcohol withdrawal. Oral cavity negative. Lungs without change though with rales on the left. Abdomen benign. No hepatic tenderness. No skin rash. LABORATORIES: Include a white count of 7800, normal diff. Creatinine 0.59, albumin 0.14 mL from the 30th. Some repeats are pending from today. Other studies of interest include the blasto antibody which was negative. Crypto antigen negative. Hepatitis C negative. Urine histo negative. HIV negative. Of course we do have positive PCR for TB. Additionally we have a study known as the RPOB mutation, which negative. When negative this implies that the organism is rifampin susceptible and this constitutes basically a genetic susceptibility test. When organisms are rifampin susceptible they tend to be susceptible to all standard first-line agents, as multi-drug resistants almost always involve rifampin resistance. IMPRESSION: This is a patient with rifampin susceptible pulmonary tuberculosis. He was started on tuberculosis therapy within the past few days and so far has tolerated it well. Today, I had a [id number] meeting with Ashtyn of the [facility]. She is the PA who administers the Tuberculosis Program, and she will be taking the patient under her wing and supervising his six months of directly observed therapy with serial laboratory followup. RECOMMENDATIONS: 1. The patient can be discharged today assuming he can afford one week of medicines. The [facility] will provide free medicines, but they may not arrive until Sunday so he may have to purchase of several days of his drugs. 2. The doses should be INH 300 today, rifampin 600 a day, pyrazinamide 2 g a day, and ethambutol 1200 a day. Ashtyn and I discussed the ethambutol dosing, and she would prefer to err on the side of under dosing with the 1200 a day choice which would correspond to 14 mg/kg per day. 3. If there is any questions about this discharge plan, please let me know. Otherwise we will sign off today. 4. Also the patient will need to be on B6 or B-complex multivitamin throughout the course of his TB therapy, which will be supervised from now on by [facility].
[2016-12-13 12:20] VITALS: BP 103/70; PULSE 96; RESP 16; O2SAT 96
--- NOTE | 2016-12-13 13:47 | PCM.PNMED ---
Subjective Date of Service Dec 13, 2016 Subjective 41 yo male follow-up for bilateral lung infiltrates of active tuberculosis. Pt still has cough but improved. Tolerating treatment well. Exam Vital Signs Vital Sign - Last Date Time Temp Pulse Resp B/P Pulse Ox O2 Delivery O2 Flow Rate FiO2 12/13/16 12:20 36.4 96 16 103/70 96 Room Air Intake and Output 12/12/16 12/12/16 12/13/16 Cumulative From/Thru 15:00 23:00 07:00 12/07/16 13:48 - 12/13/16 06:35 Intake Total 850 ml 1600 ml 600 ml 43940 ml Output Total 675 ml 1200 ml 800 ml 53744 ml Balance 175 ml 400 ml -200 ml 255 ml Intake Oral 850 ml 1600 ml 600 ml 9390 ml IV Total 1000 ml Output Urine Total 675 ml 1200 ml 800 ml 58924 ml # Voids 1 # Bowel Movements 0 0 0 2 Exam Exam General: Alert, no acute distress Heart: Regular Lungs: decreased breath sounds left lung, +[employer] [facility] Cough, No hemoptysis. Abdomen: Soft, non-tender Extremities: No pedal edema IVs and Medications Medications Reviewed: Medications were reviewed in detail Lab and Diagnostics Result Diagram: 12/13/16 1030 12/13/16 1030 X-Rays, CTs and MRIs PROCEDURE: X-RAY CHEST, TWO VIEWS ([id number]) INDICATIONS: cough, chest pain TECHNIQUE: 2 views of the chest were acquired. COMPARISON: [facility], CR, XR CHEST 2VW, 11/11/2016, 19:46. FINDINGS: Surgical changes and devices: None. Lungs and pleura: Extensive airspace disease throughout the left lung is identified. There is mild airspace disease along the peripheral aspect of the right lower lobe. Mediastinum: Mediastinal contours are normal. Heart size is normal. Bones and chest wall: No suspicious bony abnormalities. Soft tissues appear unremarkable. IMPRESSION: Bilateral pneumonia (left significantly greater than right). Dictated by: Werner Maxwell M.D. on 12/07/2016 at 13:59 Approved by: Werner Maxwell M.D. on 12/07/2016 at 14:00 PROCEDURE: CT CHEST WITH CONTRAST ([id number]) INDICATIONS: Pneumon/possible TB/possible cavitary disease TECHNIQUE: After the administration of intravenous contrast, 5 mm thick sections acquired from the pulmonary apices to the posterior costophrenic angles. 7 mm thick coronal and sagittal MIP reformats were acquired. For radiation dose reduction , the following was used: automated exposure control, adjustment of mA and/or kV according to patient size. COMPARISON: None. FINDINGS: Image quality: Excellent. Lungs and pleura: Consolidation and volume loss involving nearly the entire left upper lobe. Focus of cavitation in the left upper lobe measuring 2.2 x 1.3 CM (se 3 im 15). Consolidation and nodular pulmonary opacities in the left lower lobe. Minimal similar opacities in the peripheral right lung greatest in the upper lobe. Mediastinum: Heart size is normal. No pericardial effusion. No mediastinal or hilar adenopathy by size criteria. Thoracic aorta and central pulmonary arteries are normal in size. Esophagus is normal in caliber. No hiatal hernia. Bones and chest wall: No suspicious bony lesions. No vertebral body compression fractures. No axillary or supraclavicular adenopathy by size criteria. Thyroid gland is present.. Abdomen: Visualized upper abdominal solid organs appear normal. Upper abdominal bowel loops are normal in caliber. IMPRESSION: Dense left upper lobe consolidation with small focus of cavitation. Lesser consolidation and pulmonary opacities in the left lower lobe and peripheral right lung. Findings are most consistent with infection. Dictated by: Dayo Ca M.D. on 12/08/2016 at 7:57 Approved by: Dayo Ca M.D. on 12/08/2016 at 8:00 Assessment & Plan The patient is a 41-year-old male who has been in [facility] for 20 years. 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 Approximately 1 month ago patient became ill and was diagnosed with diabetes and placed on metformin and insulin. He states he used to weigh over 300 pounds and has lost over 100 pounds and is down 195 pounds. In addition to weight loss he has had drenching night sweats where he has to sleep with towels on his back behind his head and on his front. He also has had a cough which is nonproductive. Patient is seen his primary care provider at the [facility] and has been given azithromycin by mouth, Augmentin by mouth and now is on doxycycline by mouth. A QuantiFERON gold blood test was performed on the patient and I came back positive. The patient continues to have a pulmonary infiltrate in the left lung. Patient was sent to [facility] emergency room where he was found to have a chest x-ray consistent with bilateral pneumonia, left greater than right. # Acute Pulmonary TB - Bilateral pulmonary infiltrates left greater than right - Tmax 37.7this am -recently positive serological Quantiferron gold - recent outpatient treatment with azithromycin, Augmentin and most recently doxycycline without benefit. - CT scan of the chest results: Dense left upper lobe consolidation with small focus of cavitation. Lesser consolidation and pulmonary opacities in the left lower lobe and peripheral right lung. Findings are most consistent with infection. - Pulmonary had consulted for possible bronchoscopy but no longer needed with TB diagnosis. With sputum from December 09 positive for TB the Unasyn was stopped - blood cultures NGSF - respiratory viral PCR negative - nasopharyngeal screen for MRSA negative - urine for legionella negative - additional fungal serologies pending although cryptococcus negative - HIV non reactive ID Consult- Dr. Holland. ID Recs- Dr. Holland spoke w/ Public Health . Can d/c if can afford one week of medicines. The pending sale to [facility] will provide free medicines, but they may not arrive until Sunday so he may have to purchase of several days of his drugs. Tx- Doses should be INH 300 today, rifampin 600 a day, pyrazinamide 2g a day, and ethambutol 1200 a day. B6 or B-complex multivitamin throughout the course of his TB therapy [facility] will supervise as outpatient during 6 months therapy. # Recently diagnosed type II diabetes mellitus (Dx one month [employer]) - hemoglobin A1c 11.1 - Not receiving metformin in hospital, will continue on discharge. - Accu-Cheks every before meals and at bedtime, glu 155-205 - Sliding-scale insulin coverage, only getting 2-4 units per day of Lispro, begin on Lantus. - Diabetic teaching provided. Pt will follow up with PCP for diabetes screening and monitoring. Repeat labs in 3 months. Consider Insulin as pt does not want currently. Will c/w Metformin for now and lifestyle mods. # Alcoholism -Has not needed CIWA protocol - currently denies symptoms of withdrawal - Social service consulted for chemical dependency - Started thiamine and multivitamin and folic acid - Education on alcoholism. Disposition: Will d/c home today if can afford to self pay for meds for next few days until free meds arrive. - GI Prophylaxis: Proton Pump Inhibitor VTE Prophylaxis: Sub-Q Enoxaparin VTE Mechanical Devices: Intermittant Pneumatic CD Resuscitation Status: CPR: Attempt Resuscitation Time spent 60 minutes Simone Linn MD Dec 13, 2016 13:47
[2016-12-13] MEDS ORDERED: PYRA500T11 PO (15:21)
[2016-12-13] MEDS ORDERED: ISON300T4 PO (15:21)
[2016-12-13] MEDS ORDERED: METF-496 PO (15:21)
[2016-12-13] MEDS ORDERED: MYA400 PO (15:21)
[2016-12-13] MEDS ORDERED: RIFA300C4 PO (15:21)
--- NOTE | 2016-12-13 15:26 | PCM.DIMED ---
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 [facility] will supervise for next 6 months therapy. Please make appointment with a new primary care doctor once you have insurance. You will need repeat labs for your diabetes in 3 months. Until then make sure to take Metformin every day. Follow-up with PCP in: 2 weeks Simone Linn MD Dec 13, 2016 15:26
--- NOTE | 2016-12-13 16:47 | NUR ---
Social Work- Discharge Data: EMR reviewed. Pt is on day 6 of hospitalization for Pneumonia. Pt's discharge orders are active. Pt is positive for TB. [facility] Officials have interviewed pt tomorrow per protocol. Officials have confirmed that the county will pay for pt's prescriptions but pt will be required to fill first week of medications. PABLO VARGHESE working with [employer] and determined that pt's scripts will be faxed to [facility] and filled, allowing pt to discharge to home and the [facility] to follow up with pt at home with continued medication. Pt has been independent in his room during this admission. Pt to discharge home. Assessment: Pt who is + for TB and independent at baseline. Plan: PABLO VARGHESE worked with [employer] and determined that pt's scripts will be faxed to [facility] and filled, allowing pt to discharge to home and the [facility] to follow up with pt at home with continued medication. Pt has been independent in his room during this admission. Pt to discharge home. ERIC Felix
--- NOTE | 2016-12-13 19:27 | NUR ---
Discharge Orders for discharge were received. The patient was made aware of the plan to discharge and was agreeable to go. The patient was given information on his diagnosis and treatment, signs and symptoms to be aware of, follow up instructions and instructions on his new medications, including the importance of continuing to take his medications to fight infection. Patient signified understanding of this information. Patient aware of limitations related to diagnosis per ID. Prescriptions sent to patient's preferred pharmacy. Pharmacy called to verify availability of ordered medications. 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 Patient's asymptomatic IV was then removed intact and the patients belongings gathered. The patient then ambulated out of the hospital to where he entered a private family vehicle. At the time of discharge the patient was alert and oriented, with no complaint of chest pain, nausea or other difficulty.
--- NOTE | 2016-12-15 17:51 | PCM.DC.MED ---
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 COMPARISON: [facility], CR, XR CHEST 2VW, 11/11/2016, 19:46. FINDINGS: Surgical changes and devices: None. Lungs and pleura: Extensive airspace disease throughout the left lung is identified. There is mild airspace disease along the peripheral aspect of the right lower lobe. Mediastinum: Mediastinal contours are normal. Heart size is normal. Bones and chest wall: No suspicious bony abnormalities. Soft tissues appear unremarkable. IMPRESSION: Bilateral pneumonia (left significantly greater than right). Dictated by: Werner Maxwell M.D. on 12/07/2016 at 13:59 Approved by: Werner Maxwell M.D. on 12/07/2016 at 14:00 PROCEDURE: CT CHEST WITH CONTRAST ([id number]) INDICATIONS: Pneumon/possible TB/possible cavitary disease TECHNIQUE: After the administration of intravenous contrast, 5 mm thick sections acquired from the pulmonary apices to the posterior costophrenic angles. 7 mm thick coronal and sagittal MIP reformats were acquired. For radiation dose reduction , the following was used: automated exposure control, adjustment of mA and/or kV according to patient size. COMPARISON: None. FINDINGS: Image quality: Excellent. Lungs and pleura: Consolidation and volume loss involving nearly the entire left upper lobe. Focus of cavitation in the left upper lobe measuring 2.2 x 1.3 CM (se 3 im 15). Consolidation and nodular pulmonary opacities in the left lower lobe. Minimal similar opacities in the peripheral right lung greatest in the upper lobe. Mediastinum: Heart size is normal. No pericardial effusion. No mediastinal or hilar adenopathy by size criteria. Thoracic aorta and central pulmonary arteries are normal in size. Esophagus is normal in caliber. No hiatal hernia. Bones and chest wall: No suspicious bony lesions. No vertebral body compression fractures. No axillary or supraclavicular adenopathy by size criteria. Thyroid gland is present.. Abdomen: Visualized upper abdominal solid organs appear normal. Upper abdominal bowel loops are normal in caliber. IMPRESSION: Dense left upper lobe consolidation with small focus of cavitation. Lesser consolidation and pulmonary opacities in the left lower lobe and peripheral right lung. Findings are most consistent with infection. Dictated by: Dayo Ca M.D. on 12/08/2016 at 7:57 Approved by: Dayo Ca M.D. on 12/08/2016 at 8:00 Brief History The patient is a 41-year-old male who has been in [facility] for 20 years. 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 Approximately 1 month ago patient became ill and was diagnosed with diabetes and placed on metformin and insulin. He states he used to weigh over 300 pounds and has lost over 100 pounds and is down 195 pounds. In addition to weight loss she has had drenching night sweats where he has to sleep with towels on his back behind his head and on his front. He also has had a cough which is nonproductive. Patient is seen his primary care provider at the [facility] and has been given azithromycin by mouth, Augmentin by mouth and now is on doxycycline by mouth. A QuantiFERON gold blood test was performed on the patient and I came back positive. The patient continues to have a pulmonary infiltrate in the left lung. Patient was sent to [facility] emergency room where he was found to have a chest x-ray consistent with bilateral pneumonia, left greater than right. Laboratory test revealed hyponatremia and hyperglycemia. Therefore given the above subjective and objective findings the patient is being admitted to the hospitalisat service for further evaluation and treatment. Hospital Course The patient is a 41-year-old male who has been in [facility] for 20 years. 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 Approximately 1 month ago patient became ill and was diagnosed with diabetes and placed on metformin and insulin. He states he used to weigh over 300 pounds and has lost over 100 pounds and is down 195 pounds. In addition to weight loss he has had drenching night sweats where he has to sleep with towels on his back behind his head and on his front. He also has had a cough which is nonproductive. Patient is seen his primary care provider at the [facility] and has been given azithromycin by mouth, Augmentin by mouth and now is on doxycycline by mouth. A QuantiFERON gold blood test was performed on the patient and I came back positive. The patient continues to have a pulmonary infiltrate in the left lung. Patient was sent to [facility] emergency room where he was found to have a chest x-ray consistent with bilateral pneumonia, left greater than right. # Acute Pulmonary TB - Bilateral pulmonary infiltrates left greater than right - Tmax 37.7this am -recently positive serological Quantiferron gold - recent outpatient treatment with azithromycin, Augmentin and most recently doxycycline without benefit. - CT scan of the chest results: Dense left upper lobe consolidation with small focus of cavitation. Lesser consolidation and pulmonary opacities in the left lower lobe and peripheral right lung. Findings are most consistent with infection. - Pulmonary had consulted for possible bronchoscopy but no longer needed with TB diagnosis. With sputum from December 09 positive for TB the Unasyn was stopped - blood cultures NGSF - respiratory viral PCR negative - nasopharyngeal screen for MRSA negative - urine for legionella negative - additional fungal serologies pending although cryptococcus negative - HIV non reactive ID Consult- Dr. Holland. ID Recs- Dr. Holland spoke w/ Public Health . Can d/c if can afford one week of medicines. The [facility] will provide free medicines, but they may not arrive until Sunday so he may have to purchase of several days of his drugs. Tx- Doses should be INH 300 today, rifampin 600 a day, pyrazinamide 2g a day, and ethambutol 1200 a day. B6 or B-complex multivitamin throughout the course of his TB therapy [facility] will supervise as outpatient during 6 months therapy. 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 - Accu-Cheks every before meals and at bedtime, glu 155-205 - Sliding-scale insulin coverage, only getting 2-4 units per day of Lispro, begin on Lantus. - Diabetic teaching provided. Pt will follow up with PCP for diabetes screening and monitoring. Repeat labs in 3 months. Consider Insulin as pt does not want currently. Will c/w Metformin for now and lifestyle mods. # Alcoholism -Has not needed CIWA protocol - currently denies symptoms of withdrawal - Social service consulted for chemical dependency - Started thiamine and multivitamin and folic acid - Education on alcoholism. Disposition: Will d/c home today if can afford to self pay for meds for next few days until free meds arrive. - Exam Vital Signs (Last) Date Time Temp Pulse Resp B/P Pulse Ox O2 Delivery O2 Flow Rate FiO2 12/13/16 12:20 36.4 96 16 103/70 96 Room Air Test 12/07/16 14:50 12/07/16 16:45 12/07/16 18:30 12/07/16 23:15 Hemoglobin A1c 11.1% (4.8-5.6) Troponin T < 0.010ug/L (0.0-0.011) Hold [place] Top Tube Received (Received) Hold [place] Top Tube Received (Received) Hepatitis C Antibody <0.1s/co ratio (0.0-0.9) Urine Color Yellow (YELLOW) Urine Appearance Clear (CLEAR,HAZY) Urine pH 6.0 (5.0-8.0) Urine Specific [employer] 1.010 (1.003-1.035) Urine Protein Negativemg/dL (NEG,TRACE) Urine Glucose (UA) Negativemg/dL (NEGATIVE) Urine Ketones 15mg/dL (NEGATIVE) Urine Occult Blood Negative (NEGATIVE) Urine Nitrite Negative (NEGATIVE) Urine Bilirubin Negative (NEGATIVE) Urine Urobilinogen Normalmg/dL (NORMAL) Urine Leukocyte Esterase Negative (NEGATIVE) Urine RBC 0-2/hpf (0-2) Urine WBC 0-5/hpf (0-5) Urine Epithelial Cells Occasional/hpf (NONE-MOD) Urine Crystals None seen (NONE SEEN) Urine Bacteria Few/hpf (NONE-FEW) Urine Hyaline Casts None/lpf (NONE) Urine Granular Casts None seen (NONE SEEN) Urine Waxy Casts None seen (NONE SEEN) Urine Red Blood Cell Casts None seen (NONE SEEN) Urine White Blood Cell Casts None seen (NONE SEEN) Urine Mucus Present (None Seen) Urine Trichomonas None seen (NONE SEEN) Urine Yeast None (NONE SEEN) Urinalysis Comment None Urine Culture Reflexed Not indicated Urine Opiates Screen Negative Urine Methadone Screen Negative Urine Barbiturates Screen Negative Urine Amphetamines Screen Negative Urine Benzodiazepines Screen Negative Urine Cocaine Metabolite Screen Negative Urine Cannabinoids Screen Negative Test 12/08/16 05:55 12/08/16 16:30 12/08/16 20:20 12/10/16 06:16 Erythrocyte Sedimentation Rate 46mm/hr (0-15) Prothrombin Time 12.0sec (8.1-12.5) Prothromb Time International Ratio 1.12ratio Magnesium Level 1.6mg/dL (1.6-2.6) C-Reactive Protein 5.4mg/dL (0.0-0.5) Procalcitonin 0.14ng/mL (0.00-0.08) Blastomyces Antibody Negative (Neg:<1:1) Coccidioides Antibody Negative (Neg:<1:2) Cryptococcus Antigen Negative (Negative) Fungal Antibodies <31pg/mL (<80) HIV (1&2) Ag and Ab, 4th Generation Non reactive (Non Reactive) Urine Histoplasma Antigen 0.00ng/mL (0.00-0.49) Urine Legionella pneumophilia Ag Negative (Negative) Immunoglobulin E 41IU/mL (0-100) Test 12/13/16 10:30 White Blood Count 7.8th/mm3 (3.8-10.1) Red Blood Count 4.60mil/mm3 (4.40-5.80) Hemoglobin 13.0g/dL (13.8-17.2) Hematocrit 37.6% (41.0-50.0) Mean Corpuscular Volume 81.7fL (81-100) Mean Corpuscular Hemoglobin 28.3pg (27.0-35.0) Mean Corpuscular Hemoglobin Concent 34.6% (32.0-37.0) Red Cell Distribution Width 12.3% (12.3-15.4) Platelet Count 301bil/L (150-400) Neutrophils (%) (Auto) 69.9% (40-74) Lymphocytes (%) (Auto) 18.5% (14-46) Monocytes (%) (Auto) 8.9% (4-12) Eosinophils (%) (Auto) 2.1% (0-5) Basophils (%) (Auto) 0.1% (0-3) Sodium Level 130mEq/L (134-144) Potassium Level 4.1mEq/L (3.5-5.2) Chloride Level 94mEq/L (97-108) Carbon Dioxide Level 20mmol/L (18-29) Blood Urea Nitrogen 14mg/dL (6-20) Creatinine 0.55mg/dL (0.76-1.27) Estimat Glomerular Filtration Rate 176mL/min (>59) Glucose Level 206mg/dL (60-99) Calcium Level 9.8mg/dL (8.5-10.1) Total Bilirubin 0.5mg/dL (0.0-1.2) Aspartate Amino Transf (AST/SGOT) 30U/L (0-50) Alanine Aminotransferase (ALT/SGPT) 17U/L (0-44) Alkaline Phosphatase 115U/L (25-150) Total Protein 7.1g/dL (6.4-8.4) Albumin 3.3g/dL (3.4-5.0) Discharge Medications Discharge Medications Ethambutol (Ethambutol) 400 Mg Tablet 1,200 MG PO DAILY Prescribed by: KIRILL MEJIA MD Isoniazid (Isoniazid) 300 Mg Tablet 300 MG PO DAILY Prescribed by: KIRILL MEJIA MD Metformin ER (Metformin ER) 1,000 Mg Tablet 1,000 MG PO DAILY Prescribed by: KIRILL MEJIA MD Pyrazinamide (Pyrazinamide) 500 Mg Tablet 2,000 MG PO DAILY Prescribed by: KIRILL MEJIA MD Rifampin (Rifampin) 300 Mg Capsule 600 MG PO DAILY Prescribed by: KIRILL MEJIA MD Followup Plan Discharge Diet: Diabetic Patient Instructions Take all medications for Tuberculosis as prescribed for 6 months. [facility] will supervise for next 6 months therapy. Please make appointment with a new primary care doctor once you have insurance. You will need repeat labs for your diabetes in 3 months. Until then make sure to take Metformin every day. Follow-up with PCP in: 2 weeks Kirill Mejia MD Dec 15, 2016 17:51
[2016-12-18 07:08] LABS: Thermoactinomyces candidus Ab Negative (Negative)
== END 2016-12-13 18:36 | disposition home or self-care (01) | DRG 179 ==
LOC: SED 13:26 → OSC 16:54
PROVIDERS: ADMIT Internal Medicine Infectious Disease; ATTEND Internal Medicine Infectious Disease
DX: A15.0 Tuberculosis of lung (principal); J18.9 Pneumonia, unspecified organism; Z16.342 Resistance to multiple antimycobacterial drugs; E11.9 Type 2 diabetes mellitus without complications; F10.20 Alcohol dependence, uncomplicated; Z79.4 Long term (current) use of insulin; Z79.84 Long term (current) use of oral hypoglycemic drugs; Z83.3 Family history of diabetes mellitus

== ENCOUNTER 2017-02-25 13:06 | Emergency (ER) | payer SELFPAY ==
[~2017-02-25] VITALS: Ht 175.3 cm; Wt 85.2 kg
[~2017-02-25 13:06] MED LIST changes: -AZIT250T4 PO; +ISON300T4 PO; +MYA400 PO; +PYRA500T11 PO; +RIFA300C4 PO
[2017-02-25 13:10] VITALS: BP 134/87; PULSE 104; RESP 16; O2SAT 99
[2017-02-25 13:26] VITALS: BP 122/76; PULSE 77; RESP 16; O2SAT 97
[2017-02-25 13:45] LABS: BASOPHILS % (AUTO) 0.2 % (0-3); EOSINOPHILS % (AUTO) 3.8 % (0-5); MONOCYTES % (AUTO) 9.6 % (4-12); Mean Corpuscular Hemoglobin 28.6 pg (27.0-35.0); Mean Corpuscular Volume 80.1 fL (81-100); NEUTROPHILS % (AUTO) 65.2 % (40-74); Platelet Count 260 bil/L (150-400)
--- NOTE | 2017-02-25 13:48 | DRSVH ---
PROCEDURE: X-RAY CHEST ONE VIEW, PORTABLE ([id number]) INDICATIONS: chest pain TECHNIQUE: One view of the chest was acquired. COMPARISON: None. FINDINGS: Surgical changes and devices: None. Lungs and pleura: No pleural effusions. Possible small left pneumothorax. There is decreased, modera te patchy airspace opacity within the left midlung. No change in mild patchy right midlung opacity. Mediastinum: Mediastinal contours appear normal. Heart size is normal. Bones and chest wall: No suspicious bony lesions. Overlying soft tissues appear unremarkable. IMPRESSION: 1. Possible small left pneumothorax. Further assessment with right lateral decubitus chest x-ray exam ination is recommended. 2. Resolving pneumonia. Follow up plain films of the chest are recommended to ensure resolution, and to exclude underlying or central malignancy. 3. Findings discussed with Dr. Stevo Bunch on 02.25.17 at 1345 hrs. Dictated by: Brice Preciado M.D. on 02/25/2017 at 13:44 Approved by: Brice Preciado M.D. on 02/25/2017 at 13:47
--- NOTE | 2017-02-25 13:50 | ED.REPORT ---
HPI-Chest Pain 40 and Over Date of Service Feb 25, 2017 ED Provider: Lucian Sánchez MD A 42 year old male with a history of tuberculosis, pneumonia and type II diabetes presents to the ED complaining of chest pain. The pain is left-sided and began three days ago, continuing intermittently since and exacerbated by the pt laying on his left side. The pt admits to dry cough but denies productive cough, hemoptysis, shortness of breath, nausea, vomiting, neck pain or extremity pain. He also denies recent stress or heavy lifting. The pt was diagnosed with pneumonia and tuberculosis in 12/07/2016 and has been treated for this since. Nursing Notes Stated Complaint: HEART PAIN Chief Complaint: Chest Pain Nursing Notes Reviewed: Yes Allergies: Coded Allergies: No Known Allergies (Unverified , 02/25/17) Scheduled Ethambutol (Ethambutol) 400 Mg Tablet 1,200 MG PO DAILY Isoniazid (Isoniazid) 300 Mg Tablet 300 MG PO DAILY Levofloxacin (Levaquin) 750 Mg Tablet 750 MG PO DAILY Metformin ER (Metformin ER) 1,000 Mg Tablet 1,000 MG PO DAILY Pyrazinamide (Pyrazinamide) 500 Mg Tablet 2,000 MG PO DAILY Rifampin (Rifampin) 300 Mg Capsule 600 MG PO DAILY General Time Seen by MD: 13:18 Chief Complaint Chest pain Hx Obtained From: Patient Arrived By: Walk-in Sudden in Onset?: No Onset Occurred: 3 days ago Symptom Duration: Intermittent Recent Healthcare: Recent doctor visit, Recent hospitalization Similar Sx Previous: No Past Medical History Past Medical History DM2 TB Pneumonia Past Surgical History Reports: Appendectomy Family History Mother is diabetic Smoking History Unknown if Ever Smoker Social History Alcohol Use: Denies alcohol use Ambulatory Status Independent Review of Systems Respiratory: Reports: Non-productive cough, Denies: Prod cough, bloody, Prod cough, clear, Shortness of breath Cardiovascular: Reports: Chest pain GI: Denies: Abdominal pain, Nausea, Vomiting Musculoskeletal: Denies: Back pain, Extremity pain, Neck pain Skin: Denies Rash Psychiatric: Denies: Stress Complete sys rev & neg: except as marked. Physical Exam Initial Vital Signs Vital Signs (First) Date Time Temp Pulse Resp B/P Pulse Ox O2 Delivery O2 Flow Rate FiO2 02/25/17 13:10 36.7 104 16 134/87 99 Room Air Initial VS: Reviewed General/Constitutional: Awake, Alert Respiratory / Chest: Atraumatic, No respiratory distress, No chest tenderness decreased breath sounds on the left Cardiovascular: Heart rate NL, Regular rhythm, Heart sounds NL Abdomen: Atraumatic, Soft, Non-tender Neck: Atraumatic, Supple, Full range of motion Back: Atraumatic, Full range of motion Lower Extremity / Pelvis / MS: Atraumatic, Full range of motion Skin: Atraumatic, Color NL, No rash, Warm, Dry Neurologic: Oriented X3, Speech NL, No motor deficits, No sensory deficits Psychiatric: Affect NL, Mood NL Head / Eyes: Atraumatic, Normocephalic, PERRL, EOMI ENT: Atraumatic, Airway patent, Mucous membranes moist Upper Extremity / MS: Atraumatic, Full range of motion Interpretation & Diagnostics Lab Results Interpretation Result Diagram: 02/25/17 1325 02/25/17 1325 Test 02/25/17 13:25 White Blood Count 5.7th/mm3 (3.8-10.1) Red Blood Count 5.28mil/mm3 (4.40-5.80) Hemoglobin 15.1g/dL (13.8-17.2) Hematocrit 42.3% (41.0-50.0) Mean Corpuscular Volume 80.1fL (81-100) Mean Corpuscular Hemoglobin 28.6pg (27.0-35.0) Mean Corpuscular Hemoglobin Concent 35.7% (32.0-37.0) Red Cell Distribution Width 13.3% (12.3-15.4) Platelet Count 260bil/L (150-400) Neutrophils (%) (Auto) 65.2% (40-74) Lymphocytes (%) (Auto) 21.0% (14-46) Monocytes (%) (Auto) 9.6% (4-12) Eosinophils (%) (Auto) 3.8% (0-5) Basophils (%) (Auto) 0.2% (0-3) Sodium Level 136mEq/L (134-144) Potassium Level 3.8mEq/L (3.5-5.2) Chloride Level 98mEq/L (97-108) Carbon Dioxide Level 22mmol/L (18-29) Blood Urea Nitrogen 13mg/dL (6-24) Creatinine 0.62mg/dL (0.76-1.27) Estimat Glomerular Filtration Rate 153mL/min (>59) Glucose Level 311mg/dL (60-99) Calcium Level 9.7mg/dL (8.5-10.1) Magnesium Level 1.7mg/dL (1.6-2.6) Total Bilirubin 0.3mg/dL (0.0-1.2) Aspartate Amino Transf (AST/SGOT) 24U/L (0-50) Alanine Aminotransferase (ALT/SGPT) 20U/L (0-44) Alkaline Phosphatase 79U/L (25-150) Troponin T < 0.010ug/L (0.0-0.011) Total Protein 8.0g/dL (6.4-8.4) Albumin 4.1g/dL (3.4-5.0) Hold [place] Top Tube Received (Received) ECG Interpretation ECG Interpretation: normal sinus rhythm with a rate of [address] elevation, consistent with previous likely early repolarization no other ST/T changes Time: 13:23 Interpreted by: ED physician X-Ray Chest Interpretation Chest Xray Interpretation: IMPRESSION: 1. Possible small left pneumothorax. Further assessment with right lateral decubitus chest x-ray examination is recommended. 2. Resolving pneumonia. Follow up plain films of the chest are recommended to ensure resolution, and to exclude underlying or central malignancy. 3. Findings discussed with Dr. Stevo Bunch on 02.25.17 at 1345 hrs. Dictated by: Brice Preciado M.D. on 02/25/2017 at 13:44 Approved by: Brice Preciado M.D. on 02/25/2017 at 13:47 Interpretation / Wet Read by: Interpret - Radiologist Chest Xray Interpretation: IMPRESSION: 1. Small left pneumothorax. 2. Left greater than right pneumonia. 3. Findings discussed with Dr. Stevo Bunch on 02.25.17 at 1410 hrs. Dictated by: Brice Preciado M.D. on 02/25/2017 at 14:09 Approved by: Brice Preciado M.D. on 02/25/2017 at 14:11 Interpretation / Wet Read by: Interpret - Radiologist Chest Xray Interpretation: IMPRESSION: 1. No change in small left pneumothorax. 2. No change in left greater than right pulmonary opacifications. Dictated by: Brice Preciado M.D. on 02/25/2017 at 16:04 Approved by: Brice Preciado M.D. on 02/25/2017 at 16:04 Interpretation / Wet Read by: Interpret - Radiologist CT Chest Interpretation IMPRESSION: 1. Bilateral pulmonary opacifications, and cavitations, consistent with given history of tuberculosis. 2. No change in small left pneumothorax. Dictated by: Brice Preciado M.D. on 02/25/2017 at 15:49 Approved by: Brice Preciado M.D. on 02/25/2017 at 15:51 Interpretation / Wet Read by: Interpret - Radiologist Re-Eval/Medical Decision Med Decision/Clinical Course 42-year-old male history of pulmonary TB diagnosed in December of this year currently on treatment presenting with left-sided chest pain and shortness of breath for several days. Chest x-ray and CT chest showed small left-sided pneumothorax. Discussed with pulmonology who recommended discharge home with follow-up repeat chest x-ray tomorrow. Discussed with infectious disease Dr. Holland given new cavitations who thought this was a normal sequela of disease. Patient will follow up with [facility] health. He agrees to return immediately if any new or worsening chest pain or difficulty breathing otherwise will follow up in the morning with primary care. Source of Hx: Old records Time of Eval: 15:19 Patient Status: Condition improved Re-Evaluation/Progress Note: Pt rechecked, who is resting. Radiology results are discussed. Time of Eval: 17:29 Patient Status: Condition improved Re-Evaluation/Progress Note: Pt rechecked, who is stable. The diagnosis and plan for discharge are discussed. The pt understands and agrees with the plan. All questions are addressed at this time. Consultation #1: Referral / Consult Name: Kesha Blunt MD Consulted With: System Safety Manager Call Returned at: 15:25 Environmental Science Program Director: Agrees with eval, Agrees with plan Note: Consulted with Dr. Blunt, warranty clerk, regarding pt's case. Dr. Blunt recommends CT chest and repeat CXR. Consultation #2: Referral / Consult Name: Bhavesh Holland MD Call Returned at: 17:24 Environmental Science Program Director: Agrees with eval, Agrees with plan Note: Spoke with Dr. Holland, infectious disease specialist, regarding pt's case. Dr. Holland does not suspect that the new cavitation is acutely dangerous and recommends close follow up with public health. Counseled Regarding: Diagnosis, Lab results, Need for follow-up, When/why to return to ED Discharge & Departure Primary Impression: Pneumothorax Pneumothorax type: unspecified pneumothorax Qualified Code: J93.9 - Pneumothorax, unspecified Additional Impression: Pneumonia Pneumonia type: due to unspecified organism Laterality: unspecified laterality Lung location: unspecified part of lung Qualified Code: J18.9 - Pneumonia, unspecified organism Disposition: Home Discharge Condition All VS Reviewed: Yes Condition: Stable Patient Instructions: Pneumonia (ED), Spontaneous Pneumothorax (ED) Additional Instructions: Thank you for entrusting us with your care. Your chest x-ray indicates that you have a pneumonia and small pneumothorax. Arrange an appointment tomorrow with your primary care physician or Urgent Care for a repeat chest x-ray. Return to the emergency department immediately if you develop any new or worsening symptoms including difficulty breathing, worsening chest pain, fever, chills, nausea/vomiting or weakness. Referrals: OTHER,[facility] Scribe Attestation Portions of this note were transcribed by Jennifer Batres. I, Dr. Sánchez personally performed the history, physical exam and medical decision-making; I reviewed and confirmed the accuracy of the information in the transcribed note. copies to: [facility] Lucian Carranza MD Feb 25, 2017 13:50 JENNIFER BATRES Feb 25, 2017 14:01
[2017-02-25 14:10] LABS: TROPONIN T < 0.010 ug/L (0.0-0.011)
--- NOTE | 2017-02-25 14:12 | DRSVH ---
PROCEDURE: X-RAY RIGHT DECUBITUS CHEST ([id number]) INDICATIONS: per Radiology TECHNIQUE: One view of the chest was acquired. COMPARISON: None. FINDINGS: Surgical changes and devices: None. Lungs and pleura: No pleural effusions. Small left pneumothorax. Left greater than right pulmonary a ir space opacity. Mediastinum: Mediastinal contours appear normal. Heart size is normal. Bones and chest wall: No suspicious bony lesions. Overlying soft tissues appear unremarkable. IMPRESSION: 1. Small left pneumothorax. 2. Left greater than right pneumonia. 3. Findings discussed with Dr. Stevo Bunch on 02.25.17 at 1410 hrs. Dictated by: Brice Preciado M.D. on 02/25/2017 at 14:09 Approved by: Brice Preciado M.D. on 02/25/2017 at 14:11
[2017-02-25 14:19] LABS: Magnesium 1.7 mg/dL (1.6-2.6)
[2017-02-25 15:00] VITALS: BP 129/89; PULSE 90; RESP 17; O2SAT 98
[2017-02-25] MEDS ORDERED: LEVO750T9 PO (15:23)
--- NOTE | 2017-02-25 15:52 | DRSVH ---
PROCEDURE: CT CHEST WITHOUT CONTRAST ([id number]) INDICATIONS: pneumothorax h/o tb TECHNIQUE: Noncontrast 5 mm thick sections acquired from the pulmonary apices to the posterior costophrenic angl es. 7 mm thick coronal and sagittal MIP reformats were then acquired. For radiation dose reduction, the following was used: automated exposure control, adjustment of mA and/or kV according to patient size. COMPARISON: [facility], CR, XR CHEST DECUB RT, 02/25/2017, 13:54. [facility] , CR, XR CHEST 1VW (PORTABLE), 02/25/2017, 13:19. [facility], CT, CT CHEST W CON, 12/08/19 17, 22:24. FINDINGS: Image quality: Excellent. Lungs and pleura: No pleural effusion. No change in small left pneumothorax. Central and peripheral a irways are patent and normal in caliber. Dense airspace opacification of the left upper lobe is pres ent, and is decreased. Multiple cavitations within the left upper lobe are present. Multiple cavitary and soft tissue nodular densities within the right upper lobe, as well as the right middle and right lower lobes are present. Multiple nodular densities and airspace opacification within the left lower lobe. Scattered nodular densities within the left lower lobe. Mediastinum: Heart size is normal. No pericardial effusion. No mediastinal adenopathy by size crit eria. Thoracic aorta and central pulmonary arteries are normal in size. Esophagus is normal in [place]. No hiatal hernia. Bones and chest wall: No suspicious bony lesions. No vertebral body compression fractures. No axil gee or supraclavicular adenopathy by size criteria. Thyroid gland is within normal limits. Abdomen: Visualized upper abdominal solid organs and bowel loops appear normal in the absence of con trast. IMPRESSION: 1. Bilateral pulmonary opacifications, and cavitations, consistent with given history of tuberculosis . 2. No change in small left pneumothorax. Dictated by: Brice Preciado M.D. on 02/25/2017 at 15:49 Approved by: Brice Preciado M.D. on 02/25/2017 at 15:51
--- NOTE | 2017-02-25 16:05 | DRSVH ---
PROCEDURE: X-RAY CHEST, TWO VIEWS ([id number]) INDICATIONS: repeat for pneumothorax TECHNIQUE: 2 views of the chest were acquired. COMPARISON: [facility], CR, XR CHEST 1VW (PORTABLE), 02/25/2017, 13:19. FINDINGS: Surgical changes and devices: None. Lungs and pleura: No pleural effusions. No change in small left pneumothorax.. No change in bilatera l left greater than right pulmonary opacities. Mediastinum: Mediastinal contours are normal. Heart size is normal. Bones and chest wall: No suspicious bony abnormalities. Soft tissues appear unremarkable. IMPRESSION: 1. No change in small left pneumothorax. 2. No change in left greater than right pulmonary opacifications. Dictated by: Brice Preciado M.D. on 02/25/2017 at 16:04 Approved by: Brice Preciado M.D. on 02/25/2017 at 16:04
[2017-02-25 17:36] VITALS: BP 132/87; PULSE 84; RESP 20; O2SAT 99
== END 2017-02-25 17:39 | disposition home or self-care (01) ==
LOC: SED 13:06
DX: J93.9 Pneumothorax, unspecified (principal); J18.9 Pneumonia, unspecified organism; E11.9 Type 2 diabetes mellitus without complications; Z87.820 Personal history of traumatic brain injury; Z79.84 Long term (current) use of oral hypoglycemic drugs

== ENCOUNTER 2017-02-26 12:59 | Inpatient (IN) | payer SELFPAY ==
[~2017-02-26] VITALS: Ht 172.7 cm; Wt 83.5 kg
[~2017-02-26 12:59] MED LIST changes: +LEVO750T9 PO
--- NOTE | 2017-02-26 14:08 | NUR ---
Arrived on Unit Patient arrived on floor from urgent care via walking. VSS. Denied pain and nausea at this time. Patient orientated to call light, bed, and visiting hours. IV started by IV therapy. Chest tube place. Chest tube to suction, -20. IV fluids NS @60mL. Call light and tray table within reach. Will continue to monitor patient hourly.
[2017-02-26] MEDS ORDERED: Alum-Mag Hydrox-Simeth 30 mL Suspension PO PRN (14:40)
[2017-02-26] MEDS ORDERED: Ondansetron 2 mg/mL 2 mL Inj IVPUSH PRN (14:40)
[2017-02-26] MEDS ORDERED: Polyethylene Glycol (PEG) 17 Gm Powder PO PRN (14:40)
--- NOTE | 2017-02-26 15:00 | NUR ---
Helmets Only 5 helmets in TB cart.
[2017-02-26 15:05] LABS: BASOPHILS % (AUTO) 0.4 % (0-3); EOSINOPHILS % (AUTO) 6.6 % (0-5); MONOCYTES % (AUTO) 12.8 % (4-12); Mean Corpuscular Hemoglobin 28.7 pg (27.0-35.0); Mean Corpuscular Volume 80.9 fL (81-100); Platelet Count 235 bil/L (150-400)
[2017-02-26 15:32] LABS: Magnesium 1.7 mg/dL (1.6-2.6)
--- NOTE | 2017-02-26 15:32 | PCM.HPMED ---
Subjective Date of Service Feb 26, 2017 Primary Provider: Admitting Physician: Kirk Sevilla MD Primary Care Physician: Nopelysia Attending Physician: Kirk Sevilla MD Admit Status: Direct Admit, Full Admit, Admit to Red Team Chief Complaint: direct admit due to worsening pneumothorax new episode of Cough/4 days Chest pain/2 days History of Present Illness: 42-year-old gentleman with past medical history of diabetes, pulmonary tuberculosis on treatment (2 and half month of antiTb) was admitted due to worsening pneumothorax. Patient states his cough and dyspnea has been improving on antiTB for the last one and half months. Last he started to have new episode of dry cough and chest discomfort. Symptoms continued for 3 days and yesterday he developed chest pain which prompted visit to ED yesterday. He was noted to have small spontaneous left pneumothorax and was advised to come back for follow-up chest x -ray today. Today's CXR showed enlarging pneumothorax and was called to come in for admission. He also has some shortness of breath since last . Denies fever or sweating. he states he has been feeling better with no cough or dyspnea since initiation of anti TB until last . He was diagnosed with pulmonary TB late November with CT chest, positive quantiferon gold test and AFBs in sputum . per Dr Holland he completed initiation phase of anti-TB few days ago switched to continuation phase (? INH,RIF ) ,need to clarify with KARLEE.per Dr Holland his latest sputum AFB and culture is negative Review of Systems: Comprehensive review of systems performed, pertinent positives and negatives included in history of present illness Allergies Coded Allergies: No Known Allergies (Unverified , 02/25/17) Home Medications Rifampin (Rifampin) 300 Mg Capsule 600 MG PO DAILY ,dose to be clarified with KARLEE Isoniazid (Isoniazid) 300 Mg Tablet 300 MG PO DAILY ,dose to be clarified Metformin ER (Metformin ER) 1,000 Mg Tablet 1,000 MG PO DAILY Recently completed Pyrazinamide (Pyrazinamide) 500 Mg Tablet 2,000 MG PO DAILY Ethambutol (Ethambutol) 400 Mg Tablet 1,200 MG PO DAILY PMH Diabetes diagnosed 3 months ago 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 patient is lying comfortably in hospital bed HEENT: Head is normocephalic atraumatic, Pupils equal and reactive, extraocular movements intact, Lungs decreased air entry on left mid chest Heart regular rate and rhythm without murmurs gallops or rubs Abdomen soft nontender without hepatosplenomegaly Extremities pulses are present dorsalis pedis posterior tibialis and radial. tSkin is warm and dry there are no rashes, Psych alert and oriented to person place and time Neuro cranial nerves II through XII are grossly intact Lymph: There is no lymphadenopathy appreciated in the cervical supra infraclavicular regions : no larose Lab and Diagnostics Result Diagram: 02/26/17 1455 X-Rays, CTs and MRIs ROCEDURE: CT CHEST WITHOUT CONTRAST ([id number]) INDICATIONS: pneumothorax h/o tb IMPRESSION: 1. Bilateral pulmonary opacifications, and medial cavitations, consistent with given history of tuberculosis. 2. No change in small left pneumothorax. Dictated by: Brice Preciado M.D. on 02/25/2017 at 15:49 Approved by: Brice Preciado M.D. on 02/25/2017 at 17:00 PROCEDURE: X-RAY CHEST, TWO VIEWS ([id number]) INDICATIONS: PNEUMONIA DUE TO INFECTIOUS ORGANISM TECHNIQUE: 2 views of the chest were acquired. COMPARISON: [facility], CR, XR CHEST 2VW, 02/25/2017, 15:43. FINDINGS: Surgical changes and devices: None. Lungs and pleura: Moderate-sized left-sided pneumothorax is slightly increased in size compared to 02/25/17. Bilateral lung opacities are stable compared to prior examination. Mediastinum: Mediastinal contours are normal. Heart size is normal. Bones and chest wall: No suspicious bony abnormalities. Soft tissues appear unremarkable. IMPRESSION: 1. Enlarging left-sided pneumothorax. 2. Bilateral lung opacities left greater than right stable compared to 02/25/17. Dictated by: Brie Lockwood MD, PhD on 02/26/2017 at 9:53 Assessment & Plan 42-year-old gentleman with past medical history of diabetes, pulmonary tuberculosis on treatment (2 and half month of antiTb) was admitted due to worsening pneumothorax. # Primary pneumothorax due to pulmonary TB,acute,poa -Surgery Dr Puckett consulted and will put chest tube -pain mx with percocet -Incentive spirometry after chest tube # Pulmonary TB on anti TB -Continue INH and rifampin,dose needs to be clarified with KARLEE but keep on same dose as initiation phase for now -Recent sputum AFB negative per Dr. Holland -Patient has not been to [place] in 17 years, no visitor with known TB/chronic cough . 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 no immunocompromising condition identified yet. Negative for HIV.alcoholic and drinks > 1L tuquila #Recently diagnosed diabetes -Hold metformin for now -Sliding-scale -a1c 11.1 on 12/07 dvt ppx full code inpatient Resuscitation Status: CPR: Attempt Resuscitation Miles Palomino MD Feb 26, 2017 15:32
[2017-02-26] MEDS ORDERED: Glucose 40% Oral Gel 15 Gm Tube PO PRN (16:00)
[2017-02-26] MEDS ORDERED: Dextrose 10% 250 ML IV PRN (16:05)
[2017-02-26 17:04] VITALS: BP 132/85; PULSE 76; RESP 16; O2SAT 98
[2017-02-26] MEDS: 0.9% Sodium Chloride 1,000 ML IV SCH (17:11)
[2017-02-26] MEDS: HYDROmorphone 1 mg/mL Inj IVPUSH PRN ×2 (17:13→19:58)
[2017-02-26 17:15] VITALS: PULSE 70
[2017-02-26] MEDS: Insulin LISPRO 300 Unit/3 mL Inj SUBQ SCH ×2 (18:03→22:06)
--- NOTE | 2017-02-26 18:23 | PCM.CONSUR ---
Subjective Date of Service: Feb 26, 2017 History of Present Illness Sami Araya is a pleasant 42 year old gentleman with history of T2DM, pulmonary TB (s/p 4 drug therapy and now on isoniazid with 10 more weeks of treatment to meet 6 month treatment goal) admitted with a left pneumothorax that has increased slightly in size since yesterday. He reports 4 days of left sided chest discomfort, mild dyspnea and cough for 1 week and the pain is what prompted his presentation to the ED on 02/25/2017 with plan for repeat chest radiograph today. He denies fevers, chills, or sweats. Repeat chest radiograph this morning prompted admission and surgical consultation for consideration of thoracostomy tube placement. ID has also been following and he was originally diagnosed by CT chest in November and had a positive quantiferon Gold test and AFBs in sputum, his latest AFB and culture however is negative. After review of his prior CT and chest radiographs he certainly has a large portion of his left upper lobe infected with TB and it is collapsed with a significant left pneumothorax. He is afebrile, comfortable appearing, non tachycardic and not tachypneic. Reason for Consultation Left pneumothorax Allergy Allergies: Coded Allergies: No Known Allergies (Unverified , 02/25/17) Medications Hypertension Medication: No Home Meds Incl Beta Blockers: No Glipizide (Glipizide) 5 Mg Tablet 2.5 MG PO BIDAC Prescribed by: MYNOR STEELE MD Isoniazid (Isoniazid) 300 Mg Tablet 300 MG PO DIRECTED Prescribed by: MYNOR STEELE MD Levofloxacin (Levaquin) 750 Mg Tablet 750 MG PO DAILY Prescribed by: JEROD FINCH Last Taken: Unknown Dose on Unknown Date & Time Metformin ER (Metformin ER) 1,000 Mg Tablet 1,000 MG PO DAILY Prescribed by: KIRILL MEJIA MD Last Taken: Unknown Dose on 02/26/17 0900 Rifampin (Rifampin) 300 Mg Capsule 600 MG PO ASDIRECTED Prescribed by: MYNOR STEELE MD oxyCODONE-Acetaminophen 5-325 mg (oxyCODONE-Acetaminophen 5-325 mg) 1 Each Tablet 1 TAB PO Q6H PRN PRN For Pain Prescribed by: MYNOR STEELE MD Discontinued Medications Ethambutol (Ethambutol) 400 Mg Tablet 1,200 MG PO DAILY Prescribed by: KIRILL MEJIA MD Last Taken: Unknown Dose on 02/26/17 0900 Pyrazinamide (Pyrazinamide) 500 Mg Tablet 2,000 MG PO DAILY Prescribed by: KIRILL MEJIA MD Last Taken: Unknown Dose on Unknown Date & Time Past Surgical History Surgeries: No Patient/Family Past Surgical: Positive for:: Accept Blood Products?, Denies:: Anesthesia Reactions, Blood Transfuse Reaction, Blood Transfusions Social History Hx Alcohol Use: No Hx Substance Use: No PMH HEENT History History of ENT Problems?: No HEENT History: Denies:: Cataracts Dysphagia Glaucoma Sinus Problem Cardiovascular History History of Heart Problems?: No Cardiovascular History: Denies:: Cardiac Surgery Chest Pain Congestive Heart Failure Edema Heart Murmur Hypertension Irregular Heartbeat Pacemaker Thrombophlebitis Respiratory History of Respiratory Problem: Yes Respiratory History: Positive for:: Dyspnea Pneumonia Tuberculosis (+TB quantferon gold test 12/06/16) Denies:: Asthma COPD Chest Surgery Emphysema Hemoptysis Neurological History Hx Neurologic Problems?: No Neurological History: Denies:: Alzheimer's Disease CVA Dementia Dizziness Headaches Parkinson's Disease Seizures Gastrointestinal History HX of GI Problems?: No Gastrointestinal History: Denies:: Diverticulitis Gastroesphageal Reflux Gastrointestinal Bleeding Heartburn Hepatitis Hiatal Hernia Rectal Bleeding Genitourinary History Hx of Gu Problems?: No Genitourinary History: Denies: HX of Hemodialysis Kidney Stones Urinary Tract Infection Female/Male History Reproductive History Male: Denies: Prostate Problems Scrotal Mass Musculoskeletal History Hx Musculoskeletal Problems?: No Musculoskeletal History: Denies:: Back Injury Joint Replacement Musculoskeletal Trauma Psycho Social History Hx of Psycho/Social Problems?: No Other History Hx Any Other Health Problems?: Yes Other History: Positive for:: Hospitalization (November 2016) Denies:: Cancer Thyroid Disease Diabetes: YesBedside Blood Glucose: 251 Social History Hx Alcohol Use: NoHx Substance Use: NoHx Tobacco Use: No Smoking Status: Unknown if Ever Smoker Living Arrangement: with Family Family History PMH Family Member: Father (heart disease, alive.) Mother (T2DM, alive.) Sibling(s) (3 sisters, alive and well.) Objective Exam Vital Signs & I/O Vital Sign- Last 8 Hours Date Time Temp Pulse Resp B/P Pulse Ox O2 Delivery O2 Flow Rate FiO2 02/26/17 17:15 70 02/26/17 17:04 36.4 76 16 132/85 98 Room Air Lab & Micro Results Laboratory Tests Test 02/26/17 14:55 White Blood Count 5.1th/mm3 (3.8-10.1) Red Blood Count 4.92mil/mm3 (4.40-5.80) Hemoglobin 14.1g/dL (13.8-17.2) Hematocrit 39.8% (41.0-50.0) Mean Corpuscular Volume 80.9fL (81-100) Mean Corpuscular Hemoglobin 28.7pg (27.0-35.0) Mean Corpuscular Hemoglobin Concent 35.4% (32.0-37.0) Red Cell Distribution Width 13.3% (12.3-15.4) Platelet Count 235bil/L (150-400) Neutrophils (%) (Auto) 53.0% (40-74) Lymphocytes (%) (Auto) 27.0% (14-46) Monocytes (%) (Auto) 12.8% (4-12) Eosinophils (%) (Auto) 6.6% (0-5) Basophils (%) (Auto) 0.4% (0-3) Sodium Level 136mEq/L (134-144) Potassium Level 3.7mEq/L (3.5-5.2) Chloride Level 97mEq/L (97-108) Carbon Dioxide Level 21mmol/L (18-29) Blood Urea Nitrogen 16mg/dL (6-24) Creatinine 0.68mg/dL (0.76-1.27) Estimat Glomerular Filtration Rate 137mL/min (>59) Glucose Level 333mg/dL (60-99) Calcium Level 9.3mg/dL (8.5-10.1) Magnesium Level 1.7mg/dL (1.6-2.6) Total Bilirubin 0.5mg/dL (0.0-1.2) Aspartate Amino Transf (AST/SGOT) 23U/L (0-50) Alanine Aminotransferase (ALT/SGPT) 21U/L (0-44) Alkaline Phosphatase 95U/L (25-150) Total Protein 7.3g/dL (6.4-8.4) Albumin 4.0g/dL (3.4-5.0) Hold [place] Top Tube Received (Received) Result Diagram: 02/26/17 1455 02/26/17 1455 Review of Systems: Constitutional: Negative, except as otherwise mentioned in the history above. Ophthalmologic: Negative, except as otherwise mentioned in the history above. Cardiovascular: Negative, except as otherwise mentioned in the history above. Respiratory: Negative, except as otherwise mentioned in the history above. Gastrointestinal: Negative, except as otherwise mentioned in the history above. Genitourinary: Negative, except as otherwise mentioned in the history above. Musculoskeletal: Negative, except as otherwise mentioned in the history above. Neurological: Negative, except as otherwise mentioned in the history above. Psychiatric: Negative, except as otherwise mentioned in the history above. Hematologic/Lymphatic: Negative, except as otherwise mentioned in the history above. Allergic/Immunologic: Negative, except as otherwise mentioned in the history above. H&P Surgical Exam Exam General: Alert, Oriented X3, Cooperative, No Acute Distress HEENT: Within normal limits & unremarkable, PERRLA, EOMI, Mucous membranes moist and pink Neck: Within normal limits & unremarkable Respiratory: Clear to Auscultation, Breath Sounds Diminished (left upper lung, dullness to percussion in left upper chest) Cardiac: Regular Rate/Rhythm, No Murmurs/Rubs/Gallops Abdomen: Normal bowel sounds, Soft, No tenderness Assessment & Plan Assessment Mr. Sami Araya is a 42 year old male with a left pneumothorax secondary to pulmonary TB. Plan: After review of the imaging, pertinent history and disease process we recommend placement of a left thoracostomy tube for attempted lung reexpansion. His left upper lobe has a high burden of tubercular disease on his prior CT. We hope that we will acheive adequate lung reexpansion with thoracostomy tube placement. However, there is a risk that it will not reexpand well and definitive treatment may require a VATS lobectomy to remove the disease portion of the lung if his pneumothorax persists. Because this requires negative pressure operating rooms, he would require consultation with a facility that would be able to offer this. We reviewed the plan for left thoracostomy tube placement with the patient, medical team and infectious disease. After reviewing the technical aspects including the possible outcomes, risks and benefits of the procedure, the patient consented to proceed. All of his questions were answered and we also called his to review our plans with her per the patient's request. We will proceed with thoracostomy tube placement and place it to 20cm suction overnight. He will require daily chest radiographs. Best case scenario would be about 24 hours of treatment, no air leak, complete lung reexpansion and thoracostomy tube removal. We will await his response and treatment progression. Thank you for allowing us to participate in his care. Resuscitation Status: CPR: Attempt Resuscitation Time Spent: 60 minutes were spent on this patient visit today, greater than 50% in counseling and/or coordination of care. Attending Statement: I examined and interviewed this patient and agree with the note as dictated above by Dr. Bobo. Alexia Puckett M.D. Trista Bobo MD Feb 26, 2017 18:23 Alexia Puckett MD Mar 01, 2017 08:13
--- NOTE | 2017-02-26 18:35 | DRSVH ---
PROCEDURE: X-RAY CHEST ONE VIEW, PORTABLE ([id number]) INDICATIONS: s/p left thoracostomy tube placement TECHNIQUE: One view of the chest was acquired. COMPARISON: [facility], CT, CT CHEST WO CON, 02/25/2017, 15:46. [facility], CR, XR CHEST 2VW, 02/26/2017, 10:41. [facility], CR, XR CHEST 1VW (PORTABLE), 02/25/2017, 13:19. FINDINGS: Surgical changes and devices: There is a thoracostomy on the left. Lungs and pleura: Left pneumothorax has resolved. There are bilateral airspace infiltrates, left gre ater than right. Mediastinum: Mediastinal contours appear normal. Heart size is normal. Bones and chest wall: No suspicious bony lesions. Overlying soft tissues appear unremarkable. IMPRESSION: 1. Left thoracostomy tube in place. Left pneumothorax has resolved. 2. Airspace infiltrates bilaterally, left greater than right, consistent with pneumonia. Dictated by: Michelle Browne M.D. on 02/26/2017 at 18:30 Approved by: Michelle Browne M.D. on 02/26/2017 at 18:33
--- NOTE | 2017-02-26 18:38 | PCM.PROC ---
Procedure Note Date of Service: Feb 26, 2017 Pre Procedure Diagnosis: Left pneumothorax Post Procedure Diagnosis: Left pneumothorax Procedure: Left thoracostomy tube placement Provider and Hospital Food Service Worker: Trista Bobo MD Indication for Procedure: Left pneumothorax Findings: [place]cl[place] of air upon placement of left chest tube. Procedural Analgesia: 1% plain lidocaine, 10cc Procedure Details: A time-out was completed verifying correct patient, procedure, site, positioning , and special equipment. The patient was positioned appropriately for chest tube placement with left arm above head. The patients left chest was prepped and draped in sterile fashion. 1% Lidocaine was used to anesthetize the surrounding skin area. A 2 cm skin incision was made slightly anterior to the mid-axillary line at the inframammary crease. Utilizing blunt dissection a subcutaneous tunnel was created cephalad to the rib just above the incision. The pleural space was entered bluntly and gush of air was observed. A finger was inserted into the pleural space to check for anatomy and guide tube insertion. A 24Fr thoracostomy tube was inserted using a Noemy clamp and positioned appropriately in the apical direction to 18cm. The chest tube was sutured securely to the skin and a sterile dressing applied. A Pleur-e-vac Atrium was attached to the chest tube with 20cm suction and a chest x-ray obtained. Post thoracostomy tube film demonstrated a re-expanded left lung with appropriately placed left chest tube. No air leak was observed. The patient tolerated the procedure well and there were no complications. Post Procedure Plan: Chest radiograph tomorrow morning. Attending Statement Dr. Bobo performed this procedure. I am her cooking casing and drying supervisor and advised her on how to perform it and how to manage the tube after placement. Trista Bobo MD Feb 26, 2017 18:38 Alexia Puckett MD Mar 02, 2017 14:10
--- NOTE | 2017-02-26 19:17 | CONS ---
[address] [address] CONSULTATION REPORT PATIENT: ROXY CORDOBA : 1975 MR#: [id number] ADMIT: 02/26/2017 JOB ID: [id number] DATE OF SERVICE: 02/26/[address] Palomino for this timely consult. REASON FOR CONSULTATION: Pulmonary tuberculosis with pneumothorax. HISTORY OF PRESENT ILLNESS: The patient is a gentleman who is well known to me from an admission back in November of this year. In late November, the patient was admitted with pulmonary infiltrates on the left side as well as fever and cough. This was occurring in the setting of significant alcohol abuse. It was determined during that admission that the patient had positive cultures and PCRs for pulmonary tuberculosis. Subsequently we found out that this isolate was completely susceptible to our standard TB regimen and the patient has subsequently been treated by the [facility] with four-drug TB therapy for two months which has just recently concluded and then just started on his INH, rifampin continuation phase. During the course of his two months of therapy, he missed zero doses of therapy according to the [facility] nurse with whom I discussed the case earlier today, and he had great clinical response with complete resolution of his fever, cough, and malaise. He had no pleuritic chest pain and was feeling great until about four days ago when he developed a recurrent essentially dry cough and perhaps some mild left pleuritic chest pain which worsened over the last few days. Over this weekend he came to the ED where a chest x-ray showed increasing cavitation of a portion of his tuberculous left lung as well as the development of a small pneumothorax. The plan was to follow his pneumothorax carefully as an outpatient, but today he went to Urgent Care and there were concerns that his pneumothorax was bigger and so he was subsequently readmitted to the hospital today. The patient tells us he has had no fevers, chills, or sweats since shortly after initiation of TB therapy back over two months ago now. He has had the dry cough for the past four or five days with some left chest pain which followed the onset of the cough rather than preceded it. He has not produced significant sputum. He has had no nausea, vomiting or diarrhea. PAST MEDICAL HISTORY: 1. Diabetes mellitus which was diagnosed just during his last admission. 2. Alcoholism. 3. Obesity which has diminished over the course of the past year. 4. Pulmonary TB, diagnosed November 2016. SOCIAL HISTORY: The patient is a heavy alcohol consumer. Reports he has not had any drinks for a couple of months. 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 He is originally from [facility] [place]. FAMILY HISTORY: Negative for TB in first- or second-degree relatives, though obviously the patient has had tuberculous contacts. REVIEW OF SYSTEMS: Was done. The patient has no headache, visual change, or sore throat. He has a cough as mentioned above with left pleuritic chest pain which is not incapacitating. He has no nausea, vomiting or diarrhea. No dysuria, urgency, or frequency. Remainder of the review of systems is negative. PHYSICAL EXAMINATION: Reveals a completely healthy gentleman, no acute distress. Temp 36.6, pulse 84, respiratory rate 20, blood pressure 132/87, saturating well on room air. He is in no distress whatsoever. Head without trauma. Eyes without conjunctivitis. Oral cavity: No thrush or hairy leukoplakia. Neck supple without adenopathy. Lungs with decreased breath sounds at the left mid lung field and base. Right lung is clear. Cardiac tones: No murmurs, rubs or gallops. Abdomen soft and nontender. No hepatosplenomegaly. No ascites. No suprapubic tenderness. No swelling of the extremities. He is neurologically intact. No synovitis. LABORATORIES: Include white count 5100, basically normal diff except 6% eos. His creatinine is 0.62. His LFTs are normal. Albumin 4.1. Urinalysis: No white cells. Micro studies include the positive cultures for TB from December 09, which was pansusceptible. In speaking to the [facility] team the patient has had three negative sputum AFB smears during his therapy and has one complete culture which is negative at this point while others are pending. Imaging during this admission includes a chest x-ray, as well as a chest CT both of which we reviewed. These show evidence of a moderately sized left pneumothorax. There were dense opacifications of the left upper lobe with some cavitations in that left upper lobe. The right lung actually appears better than previous and the right lower lobe was also improving. IMPRESSION: This is an unfortunate gentleman with what seemed to be uncomplicated pulmonary tuberculosis despite very extensive infiltrates who has been getting much better on quadruple drug tuberculosis therapy until about four days ago when he developed a cough and new left pleuritic chest pain. It is unclear to me whether this represents a pneumothorax occurring in this successful treatment of pulmonary tuberculosis due to rupture of a cavity or some similar process or whether he has an intercurrent infection which caused cough and subsequent pneumothorax. I note that the emergency department team yesterday began levofloxacin, which I think is not completely unreasonable. Usually we try and avoid levofloxacin in patients who may have tuberculosis in that it can select for drug resistance as it is in and of itself a very active tuberculosis drug, but here we seem to have complete control of the bacteria based on sputum stains and cultures in followup, so I think it is reasonable to continue with levofloxacin. We reviewed a recent article we found regarding the management of pneumothoraces in the setting of tuberculosis. Some of these respond well to simple chest tube re-expansion whereas others go on to require a full thoracotomy and maybe even resection of involved lung so it is difficult to predict the course at this point, but I think it is reasonable to start with a chest tube. This case discussed in person with Dr. Kim of Pulmonary, Dr. Palomino, the hospitalist team, and by telephone with Dr. Alexia Puckett of surgery. RECOMMENDATIONS: 1. Levofloxacin 750 p.o. x5 days. 2. The [facility] team is giving INH and rifampin twice a week on Mondays and . He already got today's dose and they will be bringing by 's dose so we do not have to write for any TB drugs at this point. 3. I agree with the plans for tube thoracoscopy. 4. Will await future developments as we closely follow this patient with you. Thank you very much.
[2017-02-26 19:30] VITALS: BP 142/88; PULSE 69; RESP 16; O2SAT 99
[2017-02-26 23:47] VITALS: PULSE 76
[2017-02-27] VITALS (8 sets, daily range): BP systolic 127–153; BP diastolic 79–95; PULSE 82–101; RESP 16–18; O2SAT 94–97
[2017-02-27] MEDS: HYDROmorphone 1 mg/mL Inj IVPUSH PRN ×4 (00:36→22:10)
--- NOTE | 2017-02-27 07:05 | NUR ---
Chest tube Pt is alert, oriented, and able to make needs known. No decreased in LOC noted. No acute resp distress or SOB noted. Medicated for left side pain with IV dilaudid x2 this shift with some relief reported. Chest tube on left side is patent and drained 6ml of serosanguineous output. Dressing on chest tube site C/D/I with no issue. Care continues.
--- NOTE | 2017-02-27 07:27 | PCM.PNSURG ---
Subjective Date of Service: Feb 27, 2017 Date of Service: Feb 27, 2017 Visit Information: Reason for Visit Pneumothorax Date of Admission: Feb 26, 2017 at 12:59 Hospital Day # 2 Subjective: Continues to have some left anterior chest wall discomfort. Taking better breaths but the chest tube hurts. Pain medicines are helping. He has had no cough since the chest tube was placed. No fevers, tachycardia, or HD instability overnight. Oxygen saturations excellent on room air. Lung reexpanded on post tube CXR. Postop General: No Shortness of Breath Pain Management: Continued Pain Issues Objective Vital Sign- Last 8 Hours Date Time Temp Pulse Resp B/P Pulse Ox O2 Delivery O2 Flow Rate FiO2 02/27/17 06:05 36.8 101 16 149/95 96 Room Air 02/27/17 02:10 36.7 82 18 132/82 97 Room Air 02/27/17 00:31 37.4 87 16 153/94 97 Room Air 02/26/17 23:47 76 Intake and Output- Last 8 Hour 02/27/17 Cumulative From/Thru 07:00 02/26/17 17:02 - 02/27/17 06:05 Intake Total 850 ml 850 ml Output Total 406 ml 406 ml Balance 444 ml 444 ml Intake Oral 850 ml 850 ml Output Urine Total 400 ml 400 ml Chest Tube Drainage Total 6 ml 6 ml General: Alert, Oriented X3, Cooperative Lungs: Clear to Auscultation, Normal Air Movement, Other (left anterior chest tube to wall suction with no air leak appreciated. 15cc of serosanguinous fluid in atrium from initial tube placement.) Heart: Regular Rate/Rhythm Abdomen: Soft Neuro: Grossly Neurologically Intact Result Diagram: 02/26/17 1455 02/26/17 1455 Diagnostics: CXR with stable appearance, no pneumothorax. Assessment & Plan Impression 42M with left pneumothorax resolved s/p left thoracostomy tube to suction. Problems: Plan - Pain control to provide adequate relief to allow for coughing, deep breathing and incentive spirometer use, needs better control - Incentive spirometer and training - Chest tube continue to suction until tomorrow morning, repeat CXR tomorrow morning, if no ptx and lung continues to be nicely re-expanded will go to water seal tomorrow with repeat CXR 4 hours later and potentially pull the chest tube and discharge home. He would benefit from additional time on suction to hopefully encourage his lung to stay reexpanded. Resuscitation Status: CPR: Attempt Resuscitation Trista Bobo MD Feb 27, 2017 07:27
[2017-02-27] MEDS: Insulin LISPRO 300 Unit/3 mL Inj SUBQ SCH ×4 (08:00→22:13)
--- NOTE | 2017-02-27 09:39 | PCM.PNMED ---
Subjective Date of Service Feb 27, 2017 Subjective chest tube placed,chest tube to suction,pain controlled.patient states he is not drinking any alcohol since his prior November hospitalization. Exam Vital Signs Vital Sign - Last Date Time Temp Pulse Resp B/P Pulse Ox O2 Delivery O2 Flow Rate FiO2 02/27/17 09:11 36.6 100 18 139/90 97 Room Air Intake and Output 02/26/17 02/26/17 02/27/17 Cumulative From/Thru 15:00 23:00 07:00 02/26/17 17:02 - 02/27/17 06:05 Intake Total 0 ml 850 ml 850 ml Output Total 0 ml 406 ml 406 ml Balance 0 ml 444 ml 444 ml Intake Oral 0 ml 850 ml 850 ml Output Urine Total 0 ml 400 ml 400 ml Chest Tube Drainage Total 6 ml 6 ml Exam Gen. patient is lying comfortably in hospital bed HEENT: Head is normocephalic atraumatic, Pupils equal and reactive, extraocular movements intact, Lungs decreased air entry on left mid chest Heart regular rate and rhythm without murmurs gallops or rubs Abdomen soft nontender without hepatosplenomegaly Extremities pulses are present dorsalis pedis posterior tibialis and radial. Skin is warm and dry there are no rashes, Psych alert and oriented to person place and time Neuro cranial nerves II through XII are grossly intact Lymph: There is no lymphadenopathy appreciated in the cervical supra infraclavicular regions : no larose IVs and Medications Medications Reviewed: Medications were reviewed in detail Lab and Diagnostics Result Diagram: 02/26/17 1455 02/26/17 1455 X-Rays, CTs and MRIs ROCEDURE: CT CHEST WITHOUT CONTRAST ([id number]) INDICATIONS: pneumothorax h/o tb IMPRESSION: 1. Bilateral pulmonary opacifications, and medial cavitations, consistent with given history of tuberculosis. 2. No change in small left pneumothorax. Dictated by: Brice Preciado M.D. on 02/25/2017 at 15:49 Approved by: Brice Preciado M.D. on 02/25/2017 at 17:00 PROCEDURE: X-RAY CHEST, TWO VIEWS ([id number]) INDICATIONS: PNEUMONIA DUE TO INFECTIOUS ORGANISM TECHNIQUE: 2 views of the chest were acquired. COMPARISON: [facility], CR, XR CHEST 2VW, 02/25/2017, 15:43. FINDINGS: Surgical changes and devices: None. Lungs and pleura: Moderate-sized left-sided pneumothorax is slightly increased in size compared to 02/25/17. Bilateral lung opacities are stable compared to prior examination. Mediastinum: Mediastinal contours are normal. Heart size is normal. Bones and chest wall: No suspicious bony abnormalities. Soft tissues appear unremarkable. IMPRESSION: 1. Enlarging left-sided pneumothorax. 2. Bilateral lung opacities left greater than right stable compared to 02/25/17. Dictated by: Brie Lockwood MD, PhD on 02/26/2017 at 9:53 PROCEDURE: X-RAY CHEST ONE VIEW, PORTABLE ([id number]) INDICATIONS: s/p left thoracostomy tube placement IMPRESSION: 1. Left thoracostomy tube in place. Left pneumothorax has resolved. 2. Airspace infiltrates bilaterally, left greater than right, consistent with pneumonia. Dictated by: Michelle Browne M.D. on 02/26/2017 at 18:30 Assessment & Plan 42-year-old gentleman with past medical history of diabetes, pulmonary tuberculosis on treatment (2 and half month of antiTb) was admitted due to worsening pneumothorax. # Primary pneumothorax due to pulmonary TB,acute,poa -Surgery Dr Puckett consulted -chest tube plaed,will keep to suction today,plan to remove tomorrow per Dr Puckett -pain mx with percocet and dilaudid IV -Incentive spirometry -chest tube care -unclear what caused new cough and pneumothorax at this phase of TB treatment . Levaquin started by Ed on 02/25.will continue that per ID # Pulmonary TB on anti TB -Continue INH and rifampin twice weekly ,dose to be given Mondays and per ID -Recent sputum AFB negative per Dr. Holland -Patient has not been to [place] in 17 years, no visitor with known TB/chronic cough . 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 no immunocompromising condition identified yet. Negative for HIV.recovering alcoholic and used to drink drinks > 1L tuquila daily,last drink 3 months ago #Recently diagnosed diabetes -resume metformin -Sliding-scale -a1c 11.1 on 12/07 dvt ppx full code inpatient dispo:possible discharge tomorrow VTE Mechanical Devices: Intermittant Pneumatic CD Resuscitation Status: CPR: Attempt Resuscitation Miles Palomino MD Feb 27, 2017 09:39
[2017-02-27] MEDS ORDERED: Glucose 40% Oral Gel 15 Gm Tube PO PRN (09:45)
--- NOTE | 2017-02-27 10:00 | NUR ---
Pain Patient reported 4/10 pain at the chest tube incision site. 1mg Dilaudid given. Denies nausea at this time. Patient repositions self for comfort. SBA to BR. Call light and tray table within reach. Will continue to monitor patient hourly.
[2017-02-27] MEDS: 0.9% Sodium Chloride 1,000 ML IV SCH (10:03)
--- NOTE | 2017-02-27 10:07 | PROG NOTE ---
[address] [address] PROGRESS NOTE PATIENT: ROXY CORDOBA : 1975 MR#: [id number] ADMIT: 02/26/2017 JOB ID: [id number] DATE: 02/27/2017 REASON FOR FOLLOWUP: Pulmonary tuberculosis with pneumothorax. INTERVAL HISTORY: Yesterday, the patient received his chest tube without any difficulty. He reports that there has been some obvious pain at the site of the chest tube insertion, but he has not been short of breath per se though he does have pleuritic chest pain. Of course, with deep inspiration with chest tube in place. He states that he was told by a nurse that he had a fever during the night, but he has not been aware of any subjective fevers, chills, or sweats. No significant cough. No GI symptoms. PHYSICAL EXAMINATION: Reveals an afebrile gentleman, temperature 36.6, pulse 100, respiratory rate 18, blood pressure is 139/90 saturating well on room air. No acute distress. Oral cavity negative. Mentation normal. Lungs, clear lung heller surprisingly bilaterally with a few crackles perhaps on the left. He is able to take reasonably deep breaths though with some pain as he has a chest tube on the left. The chest tube is draining some reddish tented fluid. Abdomen negative. LABORATORIES: Include white count 5100. LFTs completely normal. IMAGING: Includes the chest x-ray which we reviewed post chest tube placement which shows resolution of the left-sided pneumothorax. IMPRESSION: This patient with pulmonary tuberculosis who is now in the continuation phase with negative sputum culture and AFB smears. He developed a pneumothorax and was otherwise essentially asymptomatic. Fortunately his pneumothorax is reinflated with the passage of a chest tube and hopefully he will not require a thoracotomy. I discussed this case in person this morning with Dr. Alexia Puckett of Surgery. RECOMMENDATIONS: 1. Will continue with a five day course of levofloxacin for the possibility of a superimposed infection. 2. The patient is continuing on his twice weekly ethambutol and rifampin which are being given by the [facility] Nurse who will be up on to give him his next dose if he is still in fact here. 3. We do not need to give any TB specific meds here as he receives these from the [facility]. 4. Will continue to closely follow this patient with you.
[2017-02-27 10:08] LABS: BASOPHILS % (AUTO) 0.1 % (0-3); MONOCYTES % (AUTO) 9.7 % (4-12); Mean Corpuscular Hemoglobin 28.7 pg (27.0-35.0); NEUTROPHILS % (AUTO) 70.3 % (40-74); Platelet Count 240 bil/L (150-400)
[2017-02-27] MEDS: levoFLOXacin 750 mg Tablet PO SCH (10:24)
--- NOTE | 2017-02-27 10:26 | DRSVH ---
PROCEDURE: X-RAY CHEST ONE VIEW, PORTABLE ([id number]) INDICATIONS: left thoracostomy tube f/u TECHNIQUE: One view of the chest was acquired. COMPARISON: [facility], CT, CT CHEST WO CON, 02/25/2017, 15:46. [facility], CR, XR CHEST 2VW, 02/25/2017, 15:43. [facility], CR, XR CHEST 2VW, 02/26/2017, 10:41. Merged with [facility], CR, XR CHEST 1VW (PORTABLE), 02/26/2017, 17:48. FINDINGS: Surgical changes and devices: There is a left-sided chest tube seen. Lungs and pleura: Bilateral pneumonia can be seen, which is more prominent on the left side than on t he right. This is not significantly changed compared to the 02/26/17 plain film examination. No pneu mothorax is seen. Mediastinum: Mediastinal contours appear normal. Heart size is normal. Bones and chest wall: No suspicious bony lesions. Overlying soft tissues appear unremarkable. IMPRESSION: Stable bilateral pneumonia. Left-sided chest tube. Dictated by: Kevan Del Toro M.D. on 02/27/2017 at 10:23 Approved by: Kevan Del Toro M.D. on 02/27/2017 at 10:25
[2017-02-27] MEDS: metFORMIN ER 500 mg ER24 Tablet PO SCH (11:20)
--- NOTE | 2017-02-27 17:24 | NUR ---
Social Work- Initial Assessment/Readiness for Discharge/Multidisciplinary Rounds Data: See Initial Assessment intervention for additional information. Pt is a 42 year old male admitted for pneumothorax per H&P. Pt is TB +, requires respirator. Pt discussed in multidisciplinary rounds, pt is likely to d/c tomorrow after removal of his chest tube. Pt is independent at baseline, no concerns related to pt's capacity for self-care. Pt is a readmit, was admitted in November for TB diagnosis. Pt has no insurance at this time, [facility] is notified and will screen pt as soon as able. Pt has no PCP at this time. Pt's readmit risk score is 2/8, low risk. Pt resides in [place] where he is independent at baseline. Pt has been obtaining his TB prescriptions through the [facility], reports that he has been compliant with these. Pt is likely to d/c home via POV, no anticipated d/c planning needs. No MD orders at this time. SW will continue to follow for d/c planning needs. Assessment: Pt who is independent with ADLs and self-care Plan: Pt is likely to d/c home via POV when medically stable, no anticipated d/c planning needs. No MD orders received at this time. SW will continue to follow. ERIC Felix Addendum: 02/27/17 at 1728 by SILKE BLOCK Amended: Links added.
[2017-02-28] VITALS (7 sets, daily range): BP systolic 126–133; BP diastolic 79–86; PULSE 75–93; RESP 18; O2SAT 96–98
[2017-02-28] MEDS: 0.9% Sodium Chloride 1,000 ML IV SCH ×2 (00:02→16:37)
--- NOTE | 2017-02-28 01:06 | NUR ---
Pain On initial assessment , patient stated pain 5/10 on pain scale. 1mg dilaudid IVP administered. Chest tube draining to gravity and chest tube dressing CDI. Patient resting comfortably. Call light is within reach. Hourly rounding continues.
[2017-02-28] MEDS: HYDROmorphone 1 mg/mL Inj IVPUSH PRN ×3 (01:51→15:06)
[2017-02-28] MEDS: levoFLOXacin 750 mg Tablet PO SCH (08:12)
--- NOTE | 2017-02-28 08:32 | PCM.PNSURG ---
Subjective Date of Service: Feb 28, 2017 Date of Service: Feb 28, 2017 Visit Information: Reason for Visit Pneumothorax Date of Admission: Feb 26, 2017 at 12:59 Hospital Day # 3 Subjective: Feels well today, left anterior chest pain slightly better. Taking deep breaths , denies cough or dyspnea. Afebrile, VSS overnight. Objective Vital Sign- Last 8 Hours Date Time Temp Pulse Resp B/P Pulse Ox O2 Delivery O2 Flow Rate FiO2 02/28/17 07:41 36.1 77 18 133/86 97 Room Air 02/28/17 05:22 36.4 75 18 126/83 97 Room Air Intake and Output- Last 8 Hour 02/28/17 Cumulative From/Thru 07:00 02/26/17 17:02 - 02/28/17 05:49 Intake Total 1262 ml 5884 ml Output Total 525 ml 1279 ml Balance 737 ml 4605 ml Intake Oral 600 ml 3750 ml IV Total 662 ml 2134 ml Output Urine Total 500 ml 1200 ml Chest Tube Drainage Total 54 ml Drainage Total 25 ml 25 ml # Voids 3 # Bowel Movements 0 0 General: Alert, Oriented X3, Cooperative, No Acute Distress Lungs: Clear to Auscultation, Normal Air Movement, Other (left thoracostomy tube in place with dressing intact, tidaling in the atrium on suction but no air leak, removed from suction for a few minutes without air leak and placed back to suction. ) Heart: Regular Rate/Rhythm Neuro: Grossly Neurologically Intact Result Diagram: 02/27/17 0955 02/27/17 0955 Diagnostics: CXR this morning without evidence of pneumothorax. Lung continues to appear re- expanded. Assessment & Plan Impression 42M with left pneumothorax resolved s/p left thoracostomy tube to suction. Problems: Plan - Pain control to provide adequate relief to allow for coughing, deep breathing and incentive spirometer use - well controlled - Incentive spirometer - Chest tube to water seal and repeat chest radiograph in 4 hours. If lung remains up may be able to discharge home today. Resuscitation Status: CPR: Attempt Resuscitation Attending Statement: I examined this patient and agree with the note above as dictated by Dr. Bobo. MD Jihan Bentley Shanley B MD Feb 28, 2017 08:32 Alexia Puckett MD Mar 02, 2017 13:58
[2017-02-28] MEDS: metFORMIN ER 500 mg ER24 Tablet PO SCH (09:46)
[2017-02-28] MEDS: Insulin LISPRO 300 Unit/3 mL Inj SUBQ SCH ×4 (09:47→22:26)
--- NOTE | 2017-02-28 10:19 | NUR ---
Chest Tube/Ambulation Pt chest tube now water seal, will have f/u cxr and evaluate for removal. Pt ambulated well to brp w/o assistance, pt has some pain that is manageable and relieved w/ dilaudid.
--- NOTE | 2017-02-28 10:43 | DRSVH ---
PROCEDURE: X-RAY CHEST ONE VIEW, PORTABLE ([id number]) INDICATIONS: left thoracostomy tube follow up TECHNIQUE: One view of the chest was acquired. COMPARISON: [facility], CR, XR CHEST 2VW, 02/25/2017, 15:43. [facility], CR, XR CHEST 1VW (PORTABLE), 02/27/2017, 5:12. FINDINGS: Surgical changes and devices: Stable positioning of left pleural drain. Lungs and pleura: No pleural effusions or pneumothorax. Patchy air space opacity again seen involvi ng much of the left lung as well as the mid right lung similar to prior examination. Mediastinum: Mediastinal contours appear normal. Heart size is normal. Bones and chest wall: No suspicious bony lesions. Overlying soft tissues appear unremarkable. IMPRESSION: 1. Stable position of left pleural drain. 2. Bilateral patchy air space opacities suggestive of pneumonia. Dictated by: Parvez Chaparro RRA Interpreted: Michelle Browne MD on 02/28/2017 at 9:43 Approved by: Michelle Browne M.D. on 02/28/2017 at 10:41
--- NOTE | 2017-02-28 14:03 | DRSVH ---
PROCEDURE: X-RAY CHEST ONE VIEW, PORTABLE ([id number]) INDICATIONS: s/p CT to water seal at 0900 TECHNIQUE: One view of the chest was acquired. COMPARISON: [facility], CR, XR CHEST 1VW (PORTABLE), 02/25/2017, 13:19. [facility], CR, XR CHEST DECUB RT, 02/25/2017, 13:54. [facility], CR, XR CHEST 2VW, 02/25/2017 , 15:43. [facility], CT, CT CHEST WO CON, 02/25/2017, 15:46. [facility], CR , XR CHEST 2VW, 02/26/2017, 10:41. [facility], CR, XR CHEST 1VW (PORTABLE), 02/26/2017, 17 :48. Located [facility], CR, XR CHEST 1VW (PORTABLE), 02/27/2017, 5:12. [facility], CR, XR CHEST 1VW (PORTABLE), 02/28/2017, 6:07. FINDINGS: Surgical changes and devices: A left-sided chest tube is seen. Lungs and pleura: Bilateral infiltrates are seen, which are more prominent on the left than on the ri ght. Low lung volumes are noted. This causes a crowded appearance to the lung markings and limits peter luation. No pneumothorax or large pleural effusion can be seen. Mediastinum: Mediastinal contours appear normal. Heart size is normal. Bones and chest wall: No suspicious bony lesions. Overlying soft tissues appear unremarkable. IMPRESSION: No definite recurrent pneumothorax is detected. Left-sided chest tube. Bilateral pulmonary infiltrates are seen, left worse than right. Dictated by: Kevan Del Toro M.D. on 02/28/2017 at 13:58 Approved by: Kevan Del Toro M.D. on 02/28/2017 at 14:01
--- NOTE | 2017-02-28 15:59 | PCM.DIMED ---
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 Pneumothorax resolved with chest. Please continue pain medication and incentive spirometry. Please change dressing as needed. May take 1-2 weeks to heal. Please continue on the TB medication with [facility] Mondays and # You were recently started on Levaquin for suspected pneumonia. Continue for 2 more days. # Diabetes seems to be uncontrolled with A1c 8.9 and blood glucose in the 250s. Please continue metformin as usual . I have added glipizide 2.5 mg by mouth twice a day. Please check recalls 3 times a day for the next 1-2 weeks and discuss his PCP for further dose adjustment. Follow-up Provider: [facility] Follow-up with PCP in: 1 week Provider: Alexia Puckett MD Follow-up in: 2 weeks Miles Palomino MD Feb 28, 2017 15:59
[2017-02-28] MEDS ORDERED: GLPZ5T PO (16:12)
[2017-02-28] MEDS ORDERED: RIFA300C4 PO (16:12)
[2017-02-28] MEDS ORDERED: ISON300T4 PO (16:12)
[2017-02-28] MEDS ORDERED: OXYC1TAB24 PO (16:12)
--- NOTE | 2017-02-28 16:19 | NUR ---
Social Work- Discharge Data: EMR reviewed. Pt is a 42 year old male admitted for pneumothorax per H&P. Pt to discharge today, discharge orders active. Pt is independent at baseline. Pt to transport home via POV. No d/c needs. Assessment: Pt who is independent with ADLs and self-care Plan: Pt to d/c home via POV, no d/c planning needs. ERIC Felix
--- NOTE | 2017-02-28 18:10 | DRSVH ---
PROCEDURE: X-RAY CHEST ONE VIEW, PORTABLE ([id number]) INDICATIONS: s/p chest tube pulled from left chest TECHNIQUE: One view of the chest was acquired. COMPARISON: [facility], CR, XR CHEST 1VW (PORTABLE), 02/28/2017, 13:24. FINDINGS: Surgical changes and devices: None. Lungs and pleura: No pleural effusions. Trace left pneumothorax.. No change in moderate left and mil d right midlung airspace opacity. Mediastinum: Mediastinal contours appear normal. Heart size is normal. Bones and chest wall: No suspicious bony lesions. Overlying soft tissues appear unremarkable. IMPRESSION: 1. Trace left pneumothorax following left chest tube removal. 2. No change in left greater than right pneumonia. Dictated by: Brice Preciado M.D. on 02/28/2017 at 18:08 Approved by: Brice Preciado M.D. on 02/28/2017 at 18:08
--- NOTE | 2017-02-28 18:14 | PCM.DC.MED ---
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 Bilateral pulmonary opacifications, and medial cavitations, consistent with given history of tuberculosis. 2. No change in small left pneumothorax. Dictated by: Brice Preciado M.D. on 02/25/2017 at 15:49 Approved by: Brice Preciado M.D. on 02/25/2017 at 17:00 PROCEDURE: X-RAY CHEST, TWO VIEWS ([id number]) INDICATIONS: PNEUMONIA DUE TO INFECTIOUS ORGANISM TECHNIQUE: 2 views of the chest were acquired. COMPARISON: [facility], , XR CHEST 2VW, 02/25/2017, 15:43. FINDINGS: Surgical changes and devices: None. Lungs and pleura: Moderate-sized left-sided pneumothorax is slightly increased in size compared to 02/25/17. Bilateral lung opacities are stable compared to prior examination. Mediastinum: Mediastinal contours are normal. Heart size is normal. Bones and chest wall: No suspicious bony abnormalities. Soft tissues appear unremarkable. IMPRESSION: 1. Enlarging left-sided pneumothorax. 2. Bilateral lung opacities left greater than right stable compared to 02/25/17. Dictated by: Brie Lockwood MD, PhD on 02/26/2017 at 9:53 PROCEDURE: X-RAY CHEST ONE VIEW, PORTABLE ([id number]) INDICATIONS: s/p left thoracostomy tube placement IMPRESSION: 1. Left thoracostomy tube in place. Left pneumothorax has resolved. 2. Airspace infiltrates bilaterally, left greater than right, consistent with pneumonia. Dictated by: Michelle Browne M.D. on 02/26/2017 at 18:30 Brief History per HPI 42-year-old gentleman with past medical history of diabetes, pulmonary tuberculosis on treatment (2 and half month of antiTb) was admitted due to worsening pneumothorax. Patient states his cough and dyspnea has been improving on antiTB for the last one and half months. Last he started to have new episode of dry cough and chest discomfort. Symptoms continued for 3 days and yesterday he developed chest pain which prompted visit to ED yesterday. He was noted to have small spontaneous left pneumothorax and was advised to come back for follow-up chest x -ray today. Today's CXR showed enlarging pneumothorax and was called to come in for admission. He also has some shortness of breath since last . Denies fever or sweating. he states he has been feeling better with no cough or dyspnea since initiation of anti TB until last . He was diagnosed with pulmonary TB late November with CT chest, positive quantiferon gold test and AFBs in sputum . per Dr Holland he completed initiation phase of anti-TB few days ago switched to continuation phase (? INH,RIF ) ,need to clarify with KARLEE.per Dr Holland his latest sputum AFB and culture is negative Hospital Course 42-year-old gentleman with past medical history of diabetes, pulmonary tuberculosis on treatment (2 and half month of antiTb) was admitted due to worsening pneumothorax. # Primary pneumothorax due to pulmonary TB,acute,poa -Surgery Dr Puckett consulted -chest tube plaed, kept to suction, removed 02/28 -pain mx with percocet -c/w Incentive spirometry -unclear what caused new cough and pneumothorax at this phase of TB treatment . 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 Holland -Patient has not been to [place] in 17 years, no visitor with known TB/chronic cough . 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 no immunocompromising condition identified yet. 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 patient is lying comfortably in hospital bed HEENT: Head is normocephalic atraumatic, Pupils equal and reactive, extraocular movements intact, Lungs clear,chest tube removed Heart regular rate and rhythm without murmurs gallops or rubs Abdomen soft nontender without hepatosplenomegaly Extremities pulses are present dorsalis pedis posterior tibialis and radial. Skin is warm and dry there are no rashes, Psych alert and oriented to person place and time Neuro cranial nerves II through XII are grossly intact Lymph: There is no lymphadenopathy appreciated in the cervical supra infraclavicular regions : no larose Test 02/26/17 14:55 02/27/17 09:55 Magnesium Level 1.7mg/dL (1.6-2.6) Total Bilirubin 0.5mg/dL (0.0-1.2) Aspartate Amino Transf (AST/SGOT) 23U/L (0-50) Alanine Aminotransferase (ALT/SGPT) 21U/L (0-44) Alkaline Phosphatase 95U/L (25-150) Total Protein 7.3g/dL (6.4-8.4) Albumin 4.0g/dL (3.4-5.0) Hold Sierra Top Tube Received (Received) White Blood Count 6.8th/mm3 (3.8-10.1) Red Blood Count 5.06mil/mm3 (4.40-5.80) Hemoglobin 14.5g/dL (13.8-17.2) Hematocrit 40.5% (41.0-50.0) Mean Corpuscular Volume 80.0fL (81-100) Mean Corpuscular Hemoglobin 28.7pg (27.0-35.0) Mean Corpuscular Hemoglobin Concent 35.8% (32.0-37.0) Red Cell Distribution Width 13.2% (12.3-15.4) Platelet Count 240bil/L (150-400) Neutrophils (%) (Auto) 70.3% (40-74) Lymphocytes (%) (Auto) 15.8% (14-46) Monocytes (%) (Auto) 9.7% (4-12) Eosinophils (%) (Auto) 4.0% (0-5) Basophils (%) (Auto) 0.1% (0-3) Sodium Level 135mEq/L (134-144) Potassium Level 4.4mEq/L (3.5-5.2) Chloride Level 99mEq/L (97-108) Carbon Dioxide Level 20mmol/L (18-29) Blood Urea Nitrogen 15mg/dL (6-24) Creatinine 0.47mg/dL (0.76-1.27) Estimat Glomerular Filtration Rate 210mL/min (>59) Glucose Level 267mg/dL (60-99) Hemoglobin A1c 8.9% (4.8-5.6) Calcium Level 8.9mg/dL (8.5-10.1) Procalcitonin 0.02ng/mL (0.00-0.08) Discharge Medications Discharge Medications Glipizide (Glipizide) 5 Mg Tablet 2.5 MG PO BIDAC Prescribed by: MILES STEELE MD Isoniazid (Isoniazid) 300 Mg Tablet 300 MG PO DIRECTED Prescribed by: MILES STEELE MD Levofloxacin (Levaquin) 750 Mg Tablet 750 MG PO DAILY Prescribed by: JEROD FINCH Metformin ER (Metformin ER) 1,000 Mg Tablet 1,000 MG PO DAILY Prescribed by: KIRILL MEJIA MD Rifampin (Rifampin) 300 Mg Capsule 600 MG PO ASDIRECTED Prescribed by: MILES STEELE MD As needed oxyCODONE-Acetaminophen 5-325 mg (oxyCODONE-Acetaminophen 5-325 mg) 1 Each Tablet 1 TAB PO Q6H PRN PRN For Pain Prescribed by: MILES STEELE MD Followup Plan Disposition: home Discharge Diet: Diabetic Discharge Activity: Limited until seen by PCP Patient Instructions # You were hospitalized due to spontaneous pneumothorax due to pulmonary TB with suspected superimposed pneumonia. Pneumothorax resolved with chest. Please continue pain medication and incentive spirometry. Please change dressing as needed. May take 1-2 weeks to heal. Please continue on the TB medication with [facility] Mondays and # You were recently started on Levaquin for suspected pneumonia. Continue for 2 more days. # Diabetes seems to be uncontrolled with A1c 8.9 and blood glucose in the 250s. Please continue metformin as usual . I have added glipizide 2.5 mg by mouth twice a day. Please check recalls 3 times a day for the next 1-2 weeks and discuss his PCP for further dose adjustment. Follow-up Provider: [facility] Follow-up with PCP in: 1 week Provider: Alexia Puckett MD Follow-up in: 2 weeks Time spent 35 minutes following patient ,before and after chest tube removal copies to: [facility] Miles Steele MD Feb 28, 2017 18:14
--- NOTE | 2017-03-01 03:44 | NUR ---
Discharge Patient's Discharge delayed. Per shift report, Dr. Bobo wanted patient to stay an additional night. Chest X-Ray ordered for 0500 on 03/01/17. Patient denies chest pain and SOB. Vitals stable. Care continues.
[2017-03-01 05:01] VITALS: BP 121/76; PULSE 71; RESP 18; O2SAT 97
--- NOTE | 2017-03-01 06:17 | PCM.PNSURG ---
Subjective Date of Service: Mar 01, 2017 Date of Service: Mar 01, 2017 Visit Information: Reason for Visit Pneumothorax Date of Admission: Feb 26, 2017 at 12:59 Hospital Day # 4 Subjective: Planned to discharge after chest tube pulled but very trace left lateral ptx seen on post pull radiograph, kept overnight to observe and repeat imaging this morning. No acute events overnight. VSS. Feels well, no dyspnea, cough, or increased chest discomfort overnight. Objective Vital Sign- Last 8 Hours Date Time Temp Pulse Resp B/P Pulse Ox O2 Delivery O2 Flow Rate FiO2 03/01/17 05:01 36.1 71 18 121/76 97 Room Air Intake and Output- Last 8 Hour 03/01/17 Cumulative From/Thru 06:59 02/26/17 17:02 - 03/01/17 05:56 Intake Total 600 ml 7684 ml Output Total 2479 ml Balance 600 ml 5205 ml Intake Oral 600 ml 5550 ml IV Total 2134 ml Output Urine Total 2400 ml Chest Tube Drainage Total 54 ml Drainage Total 25 ml # Voids 2 5 # Bowel Movements 0 0 General: Alert, Oriented X3, Cooperative, No Acute Distress Lungs: Normal Air Movement, Other (Left chest tube removal site with dressing c /d/i. Minimal tenderness to palpation.) Heart: Regular Rate/Rhythm Neuro: Grossly Neurologically Intact Catheters: None Result Diagram: 02/27/17 0955 02/27/17 0955 Diagnostics: CXR - resolution of left pneumothorax. Assessment & Plan Impression 42M with left pneumothorax resolved s/p left thoracostomy tube with trace pneumothorax appreciated after chest tube removed but stable/unchanged after observation for 12 hours and remains asymptomatic. Problems: Plan Discharge home with continue follow up and treatment with infectious disease for pulmonary TB. Should he develop recurrent pneumothorax or similar symptoms, low threshhold for repeat chest radiograph and may require more aggressive treatment in the future if recurs (VATS). Resuscitation Status: CPR: Attempt Resuscitation Jihan,Trista Pereyra MD Mar 01, 2017 06:17
[2017-03-01] MEDS: levoFLOXacin 750 mg Tablet PO SCH (08:08)
[2017-03-01] MEDS: metFORMIN ER 500 mg ER24 Tablet PO SCH (08:09)
[2017-03-01] MEDS: HYDROmorphone 1 mg/mL Inj IVPUSH PRN (08:11)
[2017-03-01] MEDS: Insulin LISPRO 300 Unit/3 mL Inj SUBQ SCH ×2 (08:43→12:00)
[2017-03-01 08:46] VITALS: BP 122/79; PULSE 79; RESP 17; O2SAT 97
--- NOTE | 2017-03-01 11:04 | PROG NOTE ---
[address] [address] PROGRESS NOTE PATIENT: ROXY CORDOBA : 1975 MR#: [id number] ADMIT: 02/26/2017 JOB ID: [id number] DATE: 03/01/2017 REASON FOR FOLLOWUP: Pulmonary tuberculosis with pneumothorax. SUBJECTIVE: The patient had a chest tube and his pneumothorax resolved. The chest tube was pulled and he now has a small residual pneumothorax on followup films. Surgery is involved in discussing options regarding this residual pneumothorax. From an Infectious Disease point of view, he has no fevers, no chills, no sweats, no significant cough, and he feels relatively well. PHYSICAL EXAMINATION: Reveals a comfortable gentleman. He is afebrile. Temp 36.6, pulse 79, respiratory rate 17, blood pressure 122/79, saturating well on room air. No acute distress. He is awake and alert. Oral cavity negative. Lungs surprisingly completely clear bilaterally to my exam this morning, though previously had some rales on the left side. Remainder of the exam is unremarkable. LABORATORIES: Include normal white count 6800, hemoglobin A1c 8.9, procalcitonin 0.02. IMAGING: Today includes a chest x-ray, which shows a trace left pneumothorax following removal of the chest tube. IMPRESSION: This patient is doing well with respect to a treatment for pulmonary tuberculosis in that his smears and followup cultures are negative. He has continued to receive therapy twice a week in a directly observed therapy program from the [facility]. He is currently in the midst of a five day course of levo that was added because of possible superimposed respiratory tract infection though I am inclined to believe that is not the case. RECOMMENDATIONS: 1. Will continue with levofloxacin through the , and then stop. 2. The TB drugs INH and rifampin will be given by the [facility] nurse on a twice a week basis, and I believe that is on Sunday and . She will come to the hospital to take care of that if he is still here. 3. From an Infectious Disease point of view, the patient could be discharged at any time.
--- NOTE | 2017-03-01 11:19 | PCM.DC.MED ---
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 Bilateral pulmonary opacifications, and medial cavitations, consistent with given history of tuberculosis. 2. No change in small left pneumothorax. Dictated by: Brice Preciado M.D. on 02/25/2017 at 15:49 Approved by: Brice Preciado M.D. on 02/25/2017 at 17:00 PROCEDURE: X-RAY CHEST, TWO VIEWS ([id number]) INDICATIONS: PNEUMONIA DUE TO INFECTIOUS ORGANISM TECHNIQUE: 2 views of the chest were acquired. COMPARISON: [facility], , XR CHEST 2VW, 02/25/2017, 15:43. FINDINGS: Surgical changes and devices: None. Lungs and pleura: Moderate-sized left-sided pneumothorax is slightly increased in size compared to 02/25/17. Bilateral lung opacities are stable compared to prior examination. Mediastinum: Mediastinal contours are normal. Heart size is normal. Bones and chest wall: No suspicious bony abnormalities. Soft tissues appear unremarkable. IMPRESSION: 1. Enlarging left-sided pneumothorax. 2. Bilateral lung opacities left greater than right stable compared to 02/25/17. Dictated by: Brie Lockwood MD, PhD on 02/26/2017 at 9:53 PROCEDURE: X-RAY CHEST ONE VIEW, PORTABLE ([id number]) INDICATIONS: s/p left thoracostomy tube placement IMPRESSION: 1. Left thoracostomy tube in place. Left pneumothorax has resolved. 2. Airspace infiltrates bilaterally, left greater than right, consistent with pneumonia. Dictated by: Michelle Browne M.D. on 02/26/2017 at 18:30 Hospital Course Discharge date 03[birth year]01/1970 Discharge diagnosis : Primary pneumothorax due to pulmonary TB resolved with chest tube. 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 42-year-old gentleman with past medical history of diabetes, pulmonary tuberculosis on treatment (2 and half month of antiTb) was admitted due to worsening pneumothorax. Surgery and infectious disease were consulted. Chest tube was placed. Patient was started on Levaquin. Chest he was a note on February 28. Infectious disease Dr. Holland advised to continue Levaquin for 2 more days, continue with TB medications. After the chest tube was removed just x-ray was suspicious for small pneumothorax. Patient was instructed to with probable overdose. He was stable. Holland was seen and examined on the day of discharge . After patient improved he was discharged home with recommendation to follow up with his PCP, [place] [facility] for further management of his medical problems. Patient Condition @ Discharge: good Discharge Disposition: home Discharge Activity: resume regular activity Discharge Diet: regular DM diet, heart healthy, low fat, low salt, high fiber Information Provided to Patient: information about discharge medications Discharge Medications: I discussed with patient medication, goals of therapy, side effects, alternatives. During discharge patient was allert, oriented, able to make own informed decisions. We discussed plan of care and discharge, alternatives of current and newly prescribed medications and diagnostic procedures. Patient verbalized understanding and agreed to current plan of care and discharge. TIME SPENT IN DISCHARGE ACTIVITY: activity greater then 30 minutes spent in discharge activity. 1. Discussed with patient re: discharge plan of care/treatment, and follow up care/services. 2. Patient agreed with discharge plan and further plan of care, all questions were answered/addressed, no further questions at the time of discharge. Exam Vital Signs (Last) Date Time Temp Pulse Resp B/P Pulse Ox O2 Delivery O2 Flow Rate FiO2 03/01/17 08:46 36.6 79 17 122/79 97 Room Air Test 02/26/17 14:55 02/27/17 09:55 Magnesium Level 1.7mg/dL (1.6-2.6) Total Bilirubin 0.5mg/dL (0.0-1.2) Aspartate Amino Transf (AST/SGOT) 23U/L (0-50) Alanine Aminotransferase (ALT/SGPT) 21U/L (0-44) Alkaline Phosphatase 95U/L (25-150) Total Protein 7.3g/dL (6.4-8.4) Albumin 4.0g/dL (3.4-5.0) Hold Sierra Top Tube Received (Received) White Blood Count 6.8th/mm3 (3.8-10.1) Red Blood Count 5.06mil/mm3 (4.40-5.80) Hemoglobin 14.5g/dL (13.8-17.2) Hematocrit 40.5% (41.0-50.0) Mean Corpuscular Volume 80.0fL (81-100) Mean Corpuscular Hemoglobin 28.7pg (27.0-35.0) Mean Corpuscular Hemoglobin Concent 35.8% (32.0-37.0) Red Cell Distribution Width 13.2% (12.3-15.4) Platelet Count 240bil/L (150-400) Neutrophils (%) (Auto) 70.3% (40-74) Lymphocytes (%) (Auto) 15.8% (14-46) Monocytes (%) (Auto) 9.7% (4-12) Eosinophils (%) (Auto) 4.0% (0-5) Basophils (%) (Auto) 0.1% (0-3) Sodium Level 135mEq/L (134-144) Potassium Level 4.4mEq/L (3.5-5.2) Chloride Level 99mEq/L (97-108) Carbon Dioxide Level 20mmol/L (18-29) Blood Urea Nitrogen 15mg/dL (6-24) Creatinine 0.47mg/dL (0.76-1.27) Estimat Glomerular Filtration Rate 210mL/min (>59) Glucose Level 267mg/dL (60-99) Hemoglobin A1c 8.9% (4.8-5.6) Calcium Level 8.9mg/dL (8.5-10.1) Procalcitonin 0.02ng/mL (0.00-0.08) Discharge Medications Discharge Medications Glipizide (Glipizide) 5 Mg Tablet 2.5 MG PO BIDAC Prescribed by: MILES STEELE MD Isoniazid (Isoniazid) 300 Mg Tablet 300 MG PO DIRECTED Prescribed by: MILES STEELE MD Levofloxacin (Levaquin) 750 Mg Tablet 750 MG PO DAILY Prescribed by: JEROD FINCH Metformin ER (Metformin ER) 1,000 Mg Tablet 1,000 MG PO DAILY Prescribed by: KIRILL MEJIA MD Rifampin (Rifampin) 300 Mg Capsule 600 MG PO ASDIRECTED Prescribed by: MILES STEELE MD As needed oxyCODONE-Acetaminophen 5-325 mg (oxyCODONE-Acetaminophen 5-325 mg) 1 Each Tablet 1 TAB PO Q6H PRN PRN For Pain Prescribed by: MILES STEELE MD Followup Plan Discharge Diet: Diabetic Discharge Activity: Limited until seen by PCP Patient Instructions # You were hospitalized due to spontaneous pneumothorax due to pulmonary TB with suspected superimposed pneumonia. Pneumothorax resolved with chest. Please continue pain medication and incentive spirometry. Please change dressing as needed. May take 1-2 weeks to heal. Please continue on the TB medication with [facility] Mondays and # You were recently started on Levaquin for suspected pneumonia. Continue for 2 more days. # Diabetes seems to be uncontrolled with A1c 8.9 and blood glucose in the 250s. Please continue metformin as usual . I have added glipizide 2.5 mg by mouth twice a day. Please check recalls 3 times a day for the next 1-2 weeks and discuss his PCP for further dose adjustment. Follow-up Provider: [facility] Follow-up with PCP in: 1 week Provider: Alexia Puckett MD Follow-up in: 2 weeks Messi Sanders MD Mar 01, 2017 11:19
--- NOTE | 2017-03-01 12:11 | NUR ---
Social Work: Discharge/Multidisciplinary Rounds D: EMR reviewed. Pt is on day 3 of hospitalization. Pt discussed in multidisciplinary rounds and is medically stable for discharge today. Pt does not have a PCP. SW requested PCP order. MD placed PCP order. WINIFRED called [facility] and confirmed follow-up appointment with Dr. Mylene Jorgensen on Tuesday 03/06 at 0815. No other discharge needs identified, no other MD orders received. A: Pt who is independent at baseline and has capacity for self-care. Pt for whom MD has ordered PCP follow-up. P: Pt to discharge home today via POV. WINIFRED provided pt with follow-up appointment card at [facility] on Tuesday 03/[address] Mylene Jorgensen. ERIC Paez
--- NOTE | 2017-03-01 13:35 | NUR ---
Discharge Patient left floor at [address] self home. All discharge information discussed with patient including follow up appointments, when to be at health department, medications, checking blood sugar, and dressing changes. IV d/c'd intact. All belongings left with patient.
--- NOTE | 2017-03-01 16:42 | DRSVH ---
PROCEDURE: X-RAY CHEST ONE VIEW, PORTABLE ([id number]) INDICATIONS: f/u trace left ptx TECHNIQUE: One view of the chest was acquired. COMPARISON: [facility], CR, XR CHEST 1VW (PORTABLE), 02/28/2017, 13:24. [facility], CR, XR CHEST 1VW (PORTABLE), 02/28/2017, 17:48. FINDINGS: Surgical changes and devices: None. Lungs and pleura: No pleural effusions. Trace left pneumothorax not significantly changed. No change in moderate left and mild right midlung airspace opacity. Mediastinum: Mediastinal contours appear normal. Heart size is normal. Bones and chest wall: No suspicious bony lesions. Overlying soft tissues appear unremarkable. IMPRESSION: 1. Trace left apical pneumothorax not significantly changed. 2. Bilateral pneumonia, left greater than right similar to prior exam. Dictated by: Parvez VERGARAA Interpreted: Shelby Bishop MD on 03/01/2017 at 9:07 Approved by: Shelby Bishop M.D. on 03/01/2017 at 16:40
== END 2017-03-01 13:25 | disposition home or self-care (01) | DRG 179 ==
LOC: OSC 12:59
PROVIDERS: ADMIT Hospitalist; ATTEND Internal Medicine
PROC: 0W9B30Z Drainage of Left Pleural Cavity with Drainage Device, Percutaneous Approach (ICD-10-PCS; principal; 2017-02-26)
DX: A15.0 Tuberculosis of lung (principal); J18.9 Pneumonia, unspecified organism; E11.65 Type 2 diabetes mellitus with hyperglycemia; Z79.84 Long term (current) use of oral hypoglycemic drugs